=== PATIENT | female | born 1960 | race Caucasian/White ===

== ENCOUNTER 2018-07-31 13:12 | Outpatient (CLI) | payer BC ==
--- NOTE | 2018-07-31 13:32 | MMO ---
Bilateral MAMMO Bilat Screen [facility]. CLINICAL HISTORY: Patient is 57 years old and is seen for screening. The patient has no family history of breast cancer. The patient has no personal history of cancer. VIEWS: The views performed were: bilateral craniocaudal with tomosynthesis and bilateral mediolateral oblique with tomosynthesis. MAMMOGRAM FINDINGS: There are scattered fibroglandular densities. There are no suspicious masses, suspicious calcifications, or new areas of architectural distortion. IMPRESSION: THERE IS NO MAMMOGRAPHIC EVIDENCE OF MALIGNANCY. A ROUTINE FOLLOW-UP MAMMOGRAM IN 1 YEAR IS RECOMMENDED. THE RESULTS OF THIS EXAM WERE SENT TO THE PATIENT. ACR BI-RADS Category 1 - Negative MAMMOGRAPHY NOTE: 1. A negative mammogram report should not delay a biopsy if a dominant of clinically suspicious mass is present. 2. Approximately 10% to 15% of breast cancers are not detected by mammography. 3. Adenosis and dense breasts may obscure an underlying neoplasm.
== END 2018-07-31 13:13 | disposition home or self-care (01) ==
LOC: BICMAMMO 13:12
PROVIDERS: ATTEND Family Medicine
DX: Z12.31 Encounter for screening mammogram for malignant neoplasm of breast (principal)
CPT/HCPCS: 77063; 77067

== ENCOUNTER 2019-02-03 11:37 | Outpatient (CLI) | payer BC ==
--- NOTE | 2019-02-03 12:58 | RAD ---
EXAM: Two views chest PROVIDED CLINICAL HISTORY: Dyspnea for 3 months. COMPARISON: None FINDINGS: Cardiac silhouette and pulmonary vasculature are within normal limits. The lungs are clear. Mild deg enerative changes are seen in the spine. IMPRESSION: No acute cardiopulmonary process.
== END 2019-02-03 11:38 | disposition home or self-care (01) ==
LOC: BICRAD 11:37
PROVIDERS: ATTEND Internal Medicine Cardiovascular Disease
DX: R06.02 Shortness of breath (principal); R06.00 Dyspnea, unspecified
CPT/HCPCS: 71046

== ENCOUNTER 2019-09-15 10:14 | Outpatient (CLI) | payer BC ==
--- NOTE | 2019-09-15 10:56 | MMO ---
Bilateral MAMMO Bilat Screen [facility]. CLINICAL HISTORY: Patient is 58 years old and is seen for screening. The patient has no family history of breast cancer. The patient has no personal history of cancer. VIEWS: The views performed were: bilateral craniocaudal with tomosynthesis and bilateral mediolateral oblique with tomosynthesis. FILMS COMPARED: The present examination has been compared to a prior imaging study performed at [facility] on 07/31/2018. This study has been interpreted with the assistance of computer-aided detection. MAMMOGRAM FINDINGS: There are scattered fibroglandular densities. There are no suspicious masses, suspicious calcifications, or new areas of architectural distortion. IMPRESSION: THERE IS NO MAMMOGRAPHIC EVIDENCE OF MALIGNANCY. A ROUTINE FOLLOW-UP MAMMOGRAM IN 1 YEAR IS RECOMMENDED. THE RESULTS OF THIS EXAM WERE SENT TO THE PATIENT. ACR BI-RADS Category 1 - Negative MAMMOGRAPHY NOTE: 1. A negative mammogram report should not delay a biopsy if a dominant of clinically suspicious mass is present. 2. Approximately 10% to 15% of breast cancers are not detected by mammography. 3. Adenosis and dense breasts may obscure an underlying neoplasm. Reported by: ROD HITCHCOCK MD Electonically Signed: [id number]
== END 2019-09-15 10:15 | disposition home or self-care (01) ==
LOC: BICMAMMO 10:14
PROVIDERS: ATTEND Family Medicine
DX: Z12.31 Encounter for screening mammogram for malignant neoplasm of breast (principal)
CPT/HCPCS: 77063; 77067

== ENCOUNTER 2020-05-27 08:26 | Outpatient (CLI) | payer BC ==
[2020-05-27] MEDS ORDERED: Iopamidol 370 76% 100 ML VIAL ONE (14:18)
[2020-05-27] MEDS ORDERED: Iopamidol 370 76% 50 ML VIAL FS ONE (14:18)
== END 2020-05-27 08:27 | disposition home or self-care (01) ==
LOC: CT 08:26
PROVIDERS: ATTEND Family Medicine
DX: R59.0 Localized enlarged lymph nodes (principal); K31.89 Other diseases of stomach and duodenum; R16.0 Hepatomegaly, not elsewhere classified
CPT/HCPCS: 71260; 74177; 82565; Q9967

== ENCOUNTER 2020-06-07 14:42 | Inpatient (IN) | payer BC ==
[2020-06-07] MEDS ORDERED: HYDROcodone/Acetaminophen 5/325 mg Tablet PO PRN (16:50)
[2020-06-07 17:55] VITALS: BMI 34.9
[2020-06-07] MEDS ORDERED: Morphine 2 MG/ML VIAL SLOW IVP PRN (18:35)
[2020-06-07] MEDS ORDERED: Dextrose 5% in Water 1,000 ML IV PRN (18:36)
[2020-06-07] MEDS ORDERED: HumaLOG 300 UNITS/3 ML VIAL SC PRN (18:36)
[2020-06-07] MEDS ORDERED: Dextrose 50% Abboject 50 ML SYRINGE SLOW IVP PRN (18:36)
[2020-06-07 18:37] LABS: HIV (1/2) Antibody/Antigen Non-Reactive (NonReactive); HIV 1/2 INDEX 0.07 S/CO (<1.00); Hep C IgG Ab Non-Reactive (NonReactive); Hep C Index 0.06 S/CO (0-0.79)
[2020-06-07] MEDS: Gabapentin 300 MG CAP PO SCH (20:57)
[2020-06-07] MEDS ORDERED: Allopurinol 300 MG TAB PO SCH (21:00)
[2020-06-07] MEDS: Ondansetron PF 4 MG/2 ML Vial IVP PRN (21:02)
[2020-06-07] MEDS: Allopurinol 300 MG TAB PO SCH (21:19)
[2020-06-08] MEDS: HYDROcodone/Acetaminophen 5/325 mg Tablet PO PRN ×2 (00:05→22:00)
[2020-06-08 05:53] LABS: SARS-CoV-2 PCR by NAA Not Detected (NotDetected)
[2020-06-08] MEDS: Ondansetron PF 4 MG/2 ML Vial IVP PRN ×2 (05:55→13:31)
[2020-06-08 07:41] LABS: #Basophils 0.1 thou/uL (0.0-0.2); #Eosinphils 0.2 thou/uL (0.0-0.7); #Lymphocytes 0.4 thou/uL (1.20-3.40); #Monocytes 0.6 thou/uL (0.11-0.59); #Neutrophils 5.7 thou/uL (1.40-6.50); %Basophils 1.8 % (0.0-1.0); %Eosinophils 2.7 % (0.0-10.0); %Lymphocytes 5.8 % (21.0-51.0); %Neutrophils 81.8 % (42.0-75.0); Hemoglobin 11.1 g/dL (12.0-16.0); Mean Corpuscular HGB CONC 31.6 g/dL (32.0-36.0); Mean Corpuscular Hemoglobin 29.6 pg (27.0-31.0); Mean Corpuscular Volume 93.7 fL (78.0-98.0); Mean Platelet Volume 7.5 fL (7.4-10.4); Platelet Count 279 thou/uL (130-400); RBC Distribution Width 13.2 % (11.5-14.5); Red Blood Cell (RBC) Count 3.76 mill/uL (4.20-5.40)
[2020-06-08] MEDS ORDERED: Sodium Bicarbonate 2.5 MEQ/5 ML VIAL ONE (07:41)
[2020-06-08] MEDS ORDERED: Fentanyl 100 MCG/2 ML VIAL ONE ×2 (07:42→18:31)
[2020-06-08] MEDS ORDERED: Midazolam HCl 2 mg/2 ml Vial ONE (07:42)
[2020-06-08 07:48] LABS: ALT (SGPT) 12 U/L (8-55); AST (SGOT) 20 U/L (5-34); Albumin 3.7 g/dL (3.4-4.8); Alkaline Phosphatase 123 U/L (40-110); Anion Gap 20 mmol/L (10-20); BUN (Urea Nitrogen) 17 mg/dL (9.8-20.1); Bilirubin, Total 0.7 mg/dL (0.2-1.2); Calc. Creatinine Clearance 88 mL/min (70-130); Calcium 9.4 mg/dL (7.8-10.44); Carbon Dioxide 21 mmol/L (23-31); Chloride 99 mmol/L (98-107); Globulin 3.4 g/dL (2.4-3.5); Glucose 123 mg/dL (80-115); Potassium 3.7 mmol/L (3.5-5.1); Protein, Total 7.1 g/dL (5.8-8.1); Sodium 136 mmol/L (136-145); Uric Acid 6.7 mg/dL (2.6-6.0)
[2020-06-08] MEDS ORDERED: CEFAZOLIN 2 GM in Premix Bag 1 BAG IVPB SCH (08:00)
[2020-06-08] MEDS ORDERED: Prevnar 13-Val Conj/PF 0.5 ML SYRINGE IM ONE (09:00)
[2020-06-08] MEDS: Sodium Chloride 0.9% 1,000 ML IV SCH ×2 (09:35→20:00)
[2020-06-08] MEDS: Allopurinol 300 MG TAB PO SCH ×2 (09:35→21:14)
[2020-06-08] MEDS: Gabapentin 300 MG CAP PO SCH ×2 (09:36→21:14)
[2020-06-08] MEDS: Enoxaparin Sodium 40 MG/0.4 ML SYRINGE SC SCH (09:36)
[2020-06-08 13:11] LABS: CSF, Glucose 66 mg/dl (40-70); CSF, Protein 24 mg/dL (15-40)
[2020-06-08 13:15] LABS: CSF Source CSF; CSF WBC/NonHematics Count-Man 0 /cu.mm (0-5)
[2020-06-08 13:16] LABS: CSF RBC Count - Manual 37 /cu.mm (None Seen); Clarity Clear (Clear); Tube # 3
[2020-06-08] MEDS ORDERED: Promethazine HCl 25 MG/ML VIAL IM/IV PRN (13:37)
[2020-06-08] MEDS ORDERED: Ketorolac Tromethamine 30 MG/ML VIAL IVP SCH (14:00)
[2020-06-08] MEDS: Lidocaine 5% Patch TD SCH (14:14)
[2020-06-08] MEDS ORDERED: Bupivacaine PF 0.5% 30 ML VIAL ONE (18:04)
[2020-06-08] MEDS ORDERED: Lidocaine 2% PF 5 ML VIAL ONE (18:04)
[2020-06-08] MEDS ORDERED: Lidocaine 2% w/Epinephrine 1:200K 20 ML VIAL ONE (18:04)
[2020-06-08] MEDS ORDERED: Ondansetron PF 4 MG/2 ML Vial ONE (18:42)
[2020-06-08] MEDS: Promethazine HCl 25 MG in Sodium Chloride 0.9% 50 ML IVPB PRN (21:01)
[2020-06-08] MEDS ORDERED: traMADol HCl 50 MG TAB PO SCH (21:30)
[2020-06-09] MEDS: Transdermal Patch Removal TOP SCH (05:02)
[2020-06-09 05:27] LABS: #Eosinphils 0.2 thou/uL (0.0-0.7); #Lymphocytes 0.6 thou/uL (1.20-3.40); #Monocytes 0.5 thou/uL (0.11-0.59); #Neutrophils 4.3 thou/uL (1.40-6.50); %Eosinophils 3.7 % (0.0-10.0); %Lymphocytes 10.1 % (21.0-51.0); %Monocytes 9.6 % (0.0-10.0); %Neutrophils 76.6 % (42.0-75.0); Hemoglobin 10.3 g/dL (12.0-16.0); Mean Corpuscular HGB CONC 32.1 g/dL (32.0-36.0); Mean Corpuscular Hemoglobin 30.3 pg (27.0-31.0); Mean Corpuscular Volume 94.2 fL (78.0-98.0); Mean Platelet Volume 7.3 fL (7.4-10.4); Platelet Count 254 thou/uL (130-400); RBC Distribution Width 13.1 % (11.5-14.5); Red Blood Cell (RBC) Count 3.42 mill/uL (4.20-5.40); White Blood Cell (WBC) Count 5.6 thou/uL (4.8-10.8)
[2020-06-09] MEDS: Promethazine HCl 25 MG in Sodium Chloride 0.9% 50 ML IVPB PRN ×2 (05:42→21:05)
[2020-06-09] MEDS: HYDROcodone/Acetaminophen 5/325 mg Tablet PO PRN ×4 (06:03→21:24)
[2020-06-09 06:09] LABS: ALT (SGPT) Less than 7 U/L (8-55); AST (SGOT) 13 U/L (5-34); Albumin 2.7 g/dL (3.4-4.8); Alkaline Phosphatase 84 U/L (40-110); Anion Gap 11 mmol/L (10-20); BUN (Urea Nitrogen) 16 mg/dL (9.8-20.1); Bilirubin, Total 0.5 mg/dL (0.2-1.2); Calc. Creatinine Clearance 122 mL/min (70-130); Calcium 6.8 mg/dL (7.8-10.44); Carbon Dioxide 22 mmol/L (23-31); Chloride 113 mmol/L (98-107); Globulin 2.2 g/dL (2.4-3.5); Glucose 69 mg/dL (80-115); Potassium 3.3 mmol/L (3.5-5.1); Protein, Total 4.9 g/dL (5.8-8.1); Sodium 143 mmol/L (136-145); Uric Acid 5.2 mg/dL (2.6-6.0)
[2020-06-09] MEDS: Allopurinol 300 MG TAB PO SCH ×2 (08:52→21:24)
[2020-06-09] MEDS: Gabapentin 300 MG CAP PO SCH ×2 (08:53→21:24)
[2020-06-09] MEDS: Enoxaparin Sodium 40 MG/0.4 ML SYRINGE SC SCH (08:53)
[2020-06-09] MEDS: Acetaminophen 325 MG TAB PO PRN (09:07)
[2020-06-09] MEDS: Ondansetron PF 4 MG/2 ML Vial IVP PRN (09:07)
[2020-06-09] MEDS: Sodium Chloride 0.9% 1,000 ML IV SCH (10:26)
[2020-06-09] MEDS: Lidocaine 5% Patch TD SCH ×2 (14:22→14:49)
[2020-06-09] MEDS: Ketorolac Tromethamine 30 MG/ML VIAL IVP SCH (18:19)
[2020-06-10] MEDS: Sodium Chloride 0.9% 1,000 ML IV SCH ×2 (00:20→14:42)
[2020-06-10] MEDS: Ketorolac Tromethamine 30 MG/ML VIAL IVP SCH ×4 (00:21→18:22)
[2020-06-10] MEDS: Transdermal Patch Removal TOP SCH (02:59)
[2020-06-10] MEDS: Promethazine HCl 25 MG in Sodium Chloride 0.9% 50 ML IVPB PRN ×2 (03:54→13:17)
[2020-06-10] MEDS: HYDROcodone/Acetaminophen 5/325 mg Tablet PO PRN ×4 (04:34→21:35)
[2020-06-10 06:42] LABS: #Eosinphils 0.2 thou/uL (0.0-0.7); #Lymphocytes 0.4 thou/uL (1.20-3.40); #Monocytes 0.4 thou/uL (0.11-0.59); #Neutrophils 4.2 thou/uL (1.40-6.50); %Basophils 0.1 % (0.0-1.0); %Eosinophils 3.4 % (0.0-10.0); %Lymphocytes 8.4 % (21.0-51.0); %Monocytes 7.9 % (0.0-10.0); %Neutrophils 80.2 % (42.0-75.0); Hemoglobin 10.1 g/dL (12.0-16.0); Mean Corpuscular HGB CONC 32.2 g/dL (32.0-36.0); Mean Corpuscular Hemoglobin 30.2 pg (27.0-31.0); Mean Corpuscular Volume 93.8 fL (78.0-98.0); Mean Platelet Volume 7.3 fL (7.4-10.4); Platelet Count 233 thou/uL (130-400); RBC Distribution Width 13.1 % (11.5-14.5); Red Blood Cell (RBC) Count 3.33 mill/uL (4.20-5.40); White Blood Cell (WBC) Count 5.2 thou/uL (4.8-10.8)
[2020-06-10 07:03] LABS: ALT (SGPT) 7 U/L (8-55); AST (SGOT) 21 U/L (5-34); Albumin 3.1 g/dL (3.4-4.8); Alkaline Phosphatase 99 U/L (40-110); Anion Gap 18 mmol/L (10-20); BUN (Urea Nitrogen) 20 mg/dL (9.8-20.1); Bilirubin, Total 0.6 mg/dL (0.2-1.2); Calc. Creatinine Clearance 102 mL/min (70-130); Calcium 8.4 mg/dL (7.8-10.44); Carbon Dioxide 18 mmol/L (23-31); Chloride 104 mmol/L (98-107); Globulin 2.7 g/dL (2.4-3.5); Glucose 76 mg/dL (80-115); Potassium 3.9 mmol/L (3.5-5.1); Protein, Total 5.8 g/dL (5.8-8.1); Sodium 136 mmol/L (136-145); Uric Acid 5.6 mg/dL (2.6-6.0)
[2020-06-10] MEDS: Allopurinol 300 MG TAB PO SCH ×2 (08:29→20:16)
[2020-06-10] MEDS: Gabapentin 300 MG CAP PO SCH ×2 (08:29→20:15)
[2020-06-10] MEDS: Enoxaparin Sodium 40 MG/0.4 ML SYRINGE SC SCH (08:30)
[2020-06-10] MEDS: Ondansetron PF 4 MG/2 ML Vial IVP PRN ×2 (08:35→18:35)
[2020-06-10] MEDS: Acetaminophen 325 MG TAB PO PRN (10:33)
[2020-06-10 11:30] LABS: Iron 20 ug/dL (50-170); Iron Binding Capacity, Total 241 mcg/dL (265-497)
[2020-06-10 11:56] LABS: Ferritin 132.02 ng/mL (10-291)
[2020-06-10] MEDS: Lidocaine 5% Patch TD SCH (14:42)
[2020-06-10] MEDS ORDERED: Calcium Carbonate 500 MG ChewTAB PO PRN (16:07)
[2020-06-10] MEDS: Senokot S 8.6-50 MG TAB PO PRN (16:54)
[2020-06-11] MEDS: Ketorolac Tromethamine 30 MG/ML VIAL IVP SCH ×4 (00:03→18:37)
[2020-06-11] MEDS: Transdermal Patch Removal TOP SCH (03:20)
[2020-06-11 06:37] LABS: #Eosinphils 0.2 thou/uL (0.0-0.7); #Lymphocytes 0.3 thou/uL (1.20-3.40); #Monocytes 0.4 thou/uL (0.11-0.59); #Neutrophils 3.6 thou/uL (1.40-6.50); %Basophils 0.1 % (0.0-1.0); %Lymphocytes 7.1 % (21.0-51.0); %Monocytes 9.1 % (0.0-10.0); %Neutrophils 78.7 % (42.0-75.0); Hemoglobin 10.6 g/dL (12.0-16.0); Mean Corpuscular HGB CONC 32.6 g/dL (32.0-36.0); Mean Corpuscular Hemoglobin 30.8 pg (27.0-31.0); Mean Corpuscular Volume 94.4 fL (78.0-98.0); Mean Platelet Volume 7.3 fL (7.4-10.4); Platelet Count 227 thou/uL (130-400); RBC Distribution Width 13.3 % (11.5-14.5); Red Blood Cell (RBC) Count 3.43 mill/uL (4.20-5.40); White Blood Cell (WBC) Count 4.5 thou/uL (4.8-10.8)
[2020-06-11 06:59] LABS: ALT (SGPT) 10 U/L (8-55); AST (SGOT) 26 U/L (5-34); Albumin 3.1 g/dL (3.4-4.8); Alkaline Phosphatase 105 U/L (40-110); Anion Gap 17 mmol/L (10-20); BUN (Urea Nitrogen) 18 mg/dL (9.8-20.1); Bilirubin, Total 0.6 mg/dL (0.2-1.2); Calc. Creatinine Clearance 98 mL/min (70-130); Calcium 8.4 mg/dL (7.8-10.44); Carbon Dioxide 16 mmol/L (23-31); Chloride 105 mmol/L (98-107); Globulin 2.8 g/dL (2.4-3.5); Glucose 84 mg/dL (80-115); Potassium 3.9 mmol/L (3.5-5.1); Protein, Total 5.9 g/dL (5.8-8.1); Sodium 134 mmol/L (136-145); Uric Acid 4.7 mg/dL (2.6-6.0)
[2020-06-11] MEDS: Gabapentin 300 MG CAP PO SCH ×2 (08:47→20:46)
[2020-06-11] MEDS: Enoxaparin Sodium 40 MG/0.4 ML SYRINGE SC SCH (08:48)
[2020-06-11] MEDS: Allopurinol 300 MG TAB PO SCH ×2 (08:48→20:46)
[2020-06-11] MEDS: Ondansetron PF 4 MG/2 ML Vial IVP PRN (08:49)
[2020-06-11] MEDS ORDERED: Iron, Sodium Ferric Gluconate 250 MG in Sodium Chloride 0.9% 100 ML IVPB SCH (09:30)
[2020-06-11] MEDS: HYDROcodone/Acetaminophen 5/325 mg Tablet PO PRN (10:28)
[2020-06-11] MEDS: Folic Acid 1 MG TAB PO SCH (10:28)
[2020-06-11] MEDS ORDERED: Acetaminophen 500 MG TAB PO PRN (12:19)
[2020-06-11] MEDS ORDERED: diphenhydrAMINE 50 MG in Sodium Chloride 0.9% 50 ML IVPB PRN (12:20)
[2020-06-11] MEDS ORDERED: SODIUM CHLORIDE 0.9% IVPB SCH ×2 (12:30→13:00)
[2020-06-11] MEDS ORDERED: RITUXIMAB ABBS IVPB SCH (12:30)
[2020-06-11] MEDS ORDERED: Dexamethasone Sod Phosphate 20 MG in Sodium Chloride 0.9% 50 ML IVPB SCH (12:30)
[2020-06-11] MEDS ORDERED: PALONOSETRON HCL 0.05 MG/ML 5 ML VIAL IVP SCH (12:30)
[2020-06-11] MEDS ORDERED: Cyclophosphamide 1 GM, Cyclophosphamide 500 MG in Sodium Chloride 0.9% 250 ML 250 ML IVPB SCH (12:45)
[2020-06-11] MEDS ORDERED: DOXORUBICIN IVPB SCH (13:00)
[2020-06-11] MEDS ORDERED: PEGFILGRASTIM-JMDB 6 MG/0.6 ML SYRINGE SQ SCH (13:00)
[2020-06-11] MEDS ORDERED: vinCRIStine Sulfate 2 MG in Sodium Chloride 0.9% 50 ML IVPB SCH (13:00)
[2020-06-11] MEDS ORDERED: predniSONE 50 MG TAB PO SCH (13:00)
[2020-06-11] MEDS: Lidocaine 5% Patch TD SCH (18:30)
[2020-06-11] MEDS: Senokot S 8.6-50 MG TAB PO PRN (20:49)
[2020-06-12] MEDS: Ketorolac Tromethamine 30 MG/ML VIAL IVP SCH ×4 (00:02→17:08)
[2020-06-12] MEDS: Transdermal Patch Removal TOP SCH (05:22)
[2020-06-12 05:56] LABS: #Basophils 0.1 thou/uL (0.0-0.2); #Lymphocytes 0.1 thou/uL (1.20-3.40); #Monocytes 0.2 thou/uL (0.11-0.59); #Neutrophils 8.5 thou/uL (1.40-6.50); %Basophils 0.8 % (0.0-1.0); %Eosinophils 0.2 % (0.0-10.0); %Lymphocytes 1.6 % (21.0-51.0); %Neutrophils 95.4 % (42.0-75.0); Mean Corpuscular HGB CONC 32.1 g/dL (32.0-36.0); Mean Corpuscular Hemoglobin 30.2 pg (27.0-31.0); Mean Corpuscular Volume 94.2 fL (78.0-98.0); Mean Platelet Volume 7.4 fL (7.4-10.4); Platelet Count 259 thou/uL (130-400); RBC Distribution Width 13.3 % (11.5-14.5); Red Blood Cell (RBC) Count 3.29 mill/uL (4.20-5.40); White Blood Cell (WBC) Count 8.9 thou/uL (4.8-10.8)
[2020-06-12 06:16] LABS: ALT (SGPT) 15 U/L (8-55); AST (SGOT) 40 U/L (5-34); Albumin 2.8 g/dL (3.4-4.8); Alkaline Phosphatase 96 U/L (40-110); Anion Gap 16 mmol/L (10-20); BUN (Urea Nitrogen) 21 mg/dL (9.8-20.1); Bilirubin, Total 0.4 mg/dL (0.2-1.2); Calc. Creatinine Clearance 107 mL/min (70-130); Calcium 7.8 mg/dL (7.8-10.44); Carbon Dioxide 17 mmol/L (23-31); Chloride 106 mmol/L (98-107); Globulin 2.7 g/dL (2.4-3.5); Glucose 135 mg/dL (80-115); Potassium 4.3 mmol/L (3.5-5.1); Protein, Total 5.5 g/dL (5.8-8.1); Sodium 135 mmol/L (136-145); Uric Acid 4.2 mg/dL (2.6-6.0)
[2020-06-12] MEDS: Enoxaparin Sodium 40 MG/0.4 ML SYRINGE SC SCH (09:07)
[2020-06-12] MEDS: Gabapentin 300 MG CAP PO SCH ×2 (09:08→20:44)
[2020-06-12] MEDS: Folic Acid 1 MG TAB PO SCH (09:09)
[2020-06-12] MEDS: Allopurinol 300 MG TAB PO SCH ×2 (09:09→20:44)
[2020-06-12] MEDS: Promethazine HCl 25 MG in Sodium Chloride 0.9% 50 ML IVPB PRN (10:46)
[2020-06-12] MEDS: HYDROcodone/Acetaminophen 5/325 mg Tablet PO PRN ×2 (12:07→18:14)
[2020-06-12] MEDS ORDERED: predniSONE 50 MG TAB PO SCH (13:00)
[2020-06-12] MEDS: Lidocaine 5% Patch TD SCH (14:07)
[2020-06-12] MEDS ORDERED: metFORMIN 500 MG TAB PO SCH (17:00)
[2020-06-12] MEDS: Ondansetron PF 4 MG/2 ML Vial IVP PRN (20:44)
[2020-06-12 20:48] VITALS: BP 147/70; TEMP 97
[2020-06-13] MEDS ORDERED: Lisinopril/Hydrochlorothiazide 20/25 mg Tablet PO SCH (09:00)
== END 2020-06-13 00:05 | disposition home or self-care (01) | DRG 824 ==
LOC: ONC 16:25
PROVIDERS: ADMIT Internal Medicine; ATTEND Family Medicine
PROC: 0JH60WZ Insertion of Totally Implantable Vascular Access Device into Chest Subcutaneous Tissue and Fascia, Open Approach (ICD-10-PCS; 2020-06-08)
PROC: 07DR3ZX Extraction of Iliac Bone Marrow, Percutaneous Approach, Diagnostic (ICD-10-PCS; 2020-06-08)
PROC: 02HV33Z Insertion of Infusion Device into Superior Vena Cava, Percutaneous Approach (ICD-10-PCS; 2020-06-08)
PROC: B518ZZA Fluoroscopy of Superior Vena Cava, Guidance (ICD-10-PCS; 2020-06-08)
PROC: 009U3ZX Drainage of Spinal Canal, Percutaneous Approach, Diagnostic (ICD-10-PCS; 2020-06-09)
PROC: B01BZZZ Fluoroscopy of Spinal Cord (ICD-10-PCS; 2020-06-09)
PROC: 3E04305 Introduction of Other Antineoplastic into Central Vein, Percutaneous Approach (ICD-10-PCS; principal; 2020-06-11)
DX: C83.33 Diffuse large B-cell lymphoma, intra-abdominal lymph nodes (principal); E87.1 Hypo-osmolality and hyponatremia; E11.9 Type 2 diabetes mellitus without complications; I10 Essential (primary) hypertension; Z20.822 Contact with and (suspected) exposure to COVID-19; G89.29 Other chronic pain; M54.9 Dorsalgia, unspecified; F32.9 Major depressive disorder, single episode, unspecified; M19.90 Unspecified osteoarthritis, unspecified site; F17.210 Nicotine dependence, cigarettes, uncomplicated; E66.9 Obesity, unspecified; Z68.35 Body mass index [BMI] 35.0-35.9, adult; Z79.899 Other long term (current) drug therapy; Z79.84 Long term (current) use of oral hypoglycemic drugs; Z88.6 Allergy status to analgesic agent
CPT/HCPCS: 20225; 36415; 36416; 62270; 71045; 77002; 80053; 82607; 82728; 82746; 82945; 83540; 83550; 83615; 84157; 84550; 85025; 85097; 86803; 87389; 87635; 88112; 88184; 88237; 88305; 88311; 88313; 89051; 93306; C1788; J0690; J1100; J1200; J1453; J1642; J1650; J1815; J1885; J2001; J2250; J2270; J2405; J2469; J2550; J2916; J3010; J3490; J7030; J7050; J7512; J9000; J9070; J9370; Q5108; Q5115; S0020; U0003; U0005

== ENCOUNTER 2020-06-22 12:03 | Outpatient (CLI) | payer BC | END 2020-06-22 12:04 | disposition home or self-care (01) | LOC: PET 12:03 | PROVIDERS: ATTEND Internal Medicine Hematology & Oncology | DX: C83.33 Diffuse large B-cell lymphoma, intra-abdominal lymph nodes (principal); R59.0 Localized enlarged lymph nodes; K31.89 Other diseases of stomach and duodenum | CPT/HCPCS: 78815; A9552 ==

== ENCOUNTER 2020-08-10 09:27 | Outpatient (CLI) | payer BC | END 2020-08-10 09:28 | disposition home or self-care (01) | LOC: PET 09:27 | PROVIDERS: ATTEND Internal Medicine Hematology & Oncology | DX: C83.30 Diffuse large B-cell lymphoma, unspecified site (principal); K11.8 Other diseases of salivary glands; R59.0 Localized enlarged lymph nodes | CPT/HCPCS: 78815; A9552 ==

== ENCOUNTER 2020-08-11 10:46 | Inpatient (IN) | payer BC ==
[2020-08-11] MEDS ORDERED: diphenhydrAMINE 25 MG CAP PO PRN (10:47)
[2020-08-11] MEDS ORDERED: Acetaminophen 500 MG TAB PO PRN (10:47)
[2020-08-11 11:19] VITALS: BMI 32.3
[2020-08-11] MEDS ORDERED: Dextrose 5% in Water 1,000 ML IV PRN (14:09)
[2020-08-11] MEDS ORDERED: Calcium Carbonate 500 MG ChewTAB PO PRN (14:09)
[2020-08-11] MEDS ORDERED: Senokot S 8.6-50 MG TAB PO PRN (14:09)
[2020-08-11] MEDS ORDERED: HYDROcodone/Acetaminophen 5/325 mg Tablet PO PRN (14:09)
[2020-08-11] MEDS ORDERED: Ondansetron ODT 4 MG TAB PO PRN (14:09)
[2020-08-11] MEDS ORDERED: Insulin Regular 300 UNITS/3 ML VIAL SC PRN ×2 (14:09)
[2020-08-11] MEDS ORDERED: Dextrose 50% Abboject 50 ML SYRINGE SLOW IVP PRN (14:09)
[2020-08-11] MEDS ORDERED: RASBURICASE IVPB SCH ×2 (14:15→20:15)
[2020-08-11] MEDS ORDERED: Sodium Chloride 0.9% 1,000 ML IV SCH (14:15)
[2020-08-11] MEDS ORDERED: SODIUM CHLORIDE 0.9% IVPB SCH ×2 (14:15→20:15)
[2020-08-11] MEDS ORDERED: Sodium Bicarbonate Tab 325 MG TAB PO SCH (14:30)
[2020-08-11] MEDS ORDERED: Sodium Chloride 0.9% 2,000 ML IV SCH (14:34)
[2020-08-11] MEDS ORDERED: Activase 2 MG VIAL CATH SCH (15:30)
[2020-08-11] MEDS ORDERED: Sterile Water 10 ML VIAL IVP SCH (15:30)
[2020-08-11] MEDS: Sodium Chloride 0.9% 1,000 ML IV SCH (18:34)
[2020-08-11 19:17] LABS: ALT (SGPT) Less than 7 U/L (8-55); AST (SGOT) 9 U/L (5-34); Albumin 3.1 g/dL (3.4-4.8); Alkaline Phosphatase 102 U/L (40-110); Anion Gap 16 mmol/L (10-20); BUN (Urea Nitrogen) 43 mg/dL (9.8-20.1); Calc. Creatinine Clearance 18 mL/min (70-130); Calcium 7.1 mg/dL (7.8-10.44); Carbon Dioxide 18 mmol/L (23-31); Chloride 103 mmol/L (98-107); Globulin 2.1 g/dL (2.4-3.5); Glucose 109 mg/dL (80-115); Potassium 3.1 mmol/L (3.5-5.1); Protein, Total 5.2 g/dL (5.8-8.1); Sodium 134 mmol/L (136-145); Uric Acid 13.8 mg/dL (2.6-6.0)
[2020-08-11] MEDS ORDERED: Promethazine HCl 12.5 MG in Sodium Chloride 0.9% 50 ML IVPB SCH (19:45)
[2020-08-11] MEDS ORDERED: Potassium Chloride 20 MEQ TAB PO SCH (20:15)
[2020-08-11] MEDS: Sodium Bicarbonate Tab 325 MG TAB PO SCH (20:29)
[2020-08-11] MEDS: Folic Acid 1 MG TAB PO SCH (20:29)
[2020-08-11] MEDS: Gabapentin 100 MG CAP PO SCH (20:29)
[2020-08-11 21:40] LABS: SARS-CoV-2 PCR by NAA Not Detected (NotDetected)
[2020-08-12] MEDS: Ondansetron PF 4 MG/2 ML Vial IVP PRN (00:09)
[2020-08-12 05:05] LABS: Hemoglobin 7.5 g/dL (12.0-16.0); Mean Corpuscular Volume 91.6 fL (78.0-98.0); Mean Platelet Volume 7.9 fL (7.4-10.4); Platelet Count 160 thou/uL (130-400); RBC Distribution Width 20.1 % (11.5-14.5); Red Blood Cell (RBC) Count 2.34 mill/uL (4.20-5.40); White Blood Cell (WBC) Count 3.1 thou/uL (4.8-10.8)
[2020-08-12 05:22] LABS: Phosphorus 4.9 mg/dL (2.3-4.7)
[2020-08-12 05:25] LABS: AST (SGOT) 9 U/L (5-34); Albumin 2.8 g/dL (3.4-4.8); Alkaline Phosphatase 86 U/L (40-110); Anion Gap 14 mmol/L (10-20); BUN (Urea Nitrogen) 41 mg/dL (9.8-20.1); Bilirubin, Total 1.4 mg/dL (0.2-1.2); Calc. Creatinine Clearance 20 mL/min (70-130); Calcium 6.6 mg/dL (7.8-10.44); Carbon Dioxide 20 mmol/L (23-31); Chloride 108 mmol/L (98-107); Globulin 1.8 g/dL (2.4-3.5); Glucose 104 mg/dL (80-115); Magnesium 1.4 mg/dL (1.6-2.6); Potassium 3.5 mmol/L (3.5-5.1); Protein, Total 4.6 g/dL (5.8-8.1); Sodium 138 mmol/L (136-145); Uric Acid 12.7 mg/dL (2.6-6.0)
[2020-08-12 05:41] LABS: ALT (SGPT) Less than 7 U/L (8-55)
[2020-08-12 08:12] LABS: Band 15 % (5-11); Lymphocytes 10 % (21-51); MDiff Complete? YES; Monocytes 20 % (0-10); Neutrophil 55 % (42-75); Platelet Morphology Comment Appears Adequate; Polychromasia SLIGHT = 2-3 cells (100X) (0-2/hpf)
[2020-08-12] MEDS: Sodium Bicarbonate Tab 325 MG TAB PO SCH ×2 (08:44→20:48)
[2020-08-12] MEDS: Gabapentin 100 MG CAP PO SCH ×2 (08:44→20:48)
[2020-08-12] MEDS: Calcium Carbonate 600 MG + Vit D TAB PO SCH ×2 (08:44→16:02)
[2020-08-12] MEDS: Folic Acid 1 MG TAB PO SCH ×2 (08:44→20:48)
[2020-08-12] MEDS: Sodium Chloride 0.9% 1,000 ML IV SCH ×2 (08:49→20:53)
[2020-08-12 19:16] LABS: Albumin 3.2 g/dL (3.4-4.8); Anion Gap 14 mmol/L (10-20); BUN (Urea Nitrogen) 34 mg/dL (9.8-20.1); Calc. Creatinine Clearance 25 mL/min (70-130); Calcium 7.1 mg/dL (7.8-10.44); Carbon Dioxide 22 mmol/L (23-31); Chloride 106 mmol/L (98-107); Glucose 93 mg/dL (80-115); Phosphorus 4.2 mg/dL (2.3-4.7); Potassium 3.5 mmol/L (3.5-5.1); Sodium 138 mmol/L (136-145); Uric Acid Less than 2.0 mg/dL (2.6-6.0)
[2020-08-12] MEDS: Heparin 5,000 UNITS/ML VIAL SC SCH (20:49)
[2020-08-13] MEDS: Acetaminophen 325 MG TAB PO PRN (04:30)
[2020-08-13 06:35] LABS: Albumin 2.8 g/dL (3.4-4.8); Anion Gap 11 mmol/L (10-20); BUN (Urea Nitrogen) 27 mg/dL (9.8-20.1); BUN/Creatinine Ratio 9.57; Calc. Creatinine Clearance 32 mL/min (70-130); Calcium 6.7 mg/dL (7.8-10.44); Carbon Dioxide 23 mmol/L (23-31); Chloride 107 mmol/L (98-107); Glucose 97 mg/dL (80-115); Magnesium 1.1 mg/dL (1.6-2.6); Phosphorus 4.1 mg/dL (2.3-4.7); Potassium 3.1 mmol/L (3.5-5.1); Sodium 138 mmol/L (136-145); Uric Acid Less than 2.0 mg/dL (2.6-6.0)
[2020-08-13 06:37] LABS: Band 10 % (5-11); Hypochromia SLIGHT = 6-15 cells (100X) (0-5/hpf); MDiff Complete? YES; Mean Corpuscular HGB CONC 32.8 g/dL (32.0-36.0); Mean Corpuscular Hemoglobin 30.4 pg (27.0-31.0); Mean Corpuscular Volume 92.6 fL (78.0-98.0); Mean Platelet Volume 7.6 fL (7.4-10.4); Monocytes 4 % (0-10); Neutrophil 86 % (42-75); Platelet Count 155 thou/uL (130-400); Platelet Morphology Comment Appears Adequate; RBC Distribution Width 19.9 % (11.5-14.5); Red Blood Cell (RBC) Count 2.29 mill/uL (4.20-5.40); White Blood Cell (WBC) Count 2.4 thou/uL (4.8-10.8)
[2020-08-13] MEDS ORDERED: Potassium Chloride 20 MEQ TAB PO SCH (08:15)
[2020-08-13] MEDS ORDERED: Magnesium 2 GM/50 ML 2 GM in Premix Bag 1 BAG IVPB SCH (08:15)
[2020-08-13] MEDS: Sodium Chloride 0.9% 1,000 ML IV SCH ×2 (09:02→17:25)
[2020-08-13] MEDS: Gabapentin 100 MG CAP PO SCH ×2 (09:58→20:52)
[2020-08-13] MEDS: Folic Acid 1 MG TAB PO SCH ×2 (09:59→20:52)
[2020-08-13] MEDS: Sodium Bicarbonate Tab 325 MG TAB PO SCH ×2 (09:59→20:53)
[2020-08-13] MEDS: Calcium Carbonate 600 MG + Vit D TAB PO SCH ×2 (09:59→18:00)
[2020-08-13] MEDS: Heparin 5,000 UNITS/ML VIAL SC SCH ×2 (10:00→20:52)
[2020-08-13 20:27] LABS: Albumin 3.2 g/dL (3.4-4.8); Anion Gap 13 mmol/L (10-20); BUN (Urea Nitrogen) 22 mg/dL (9.8-20.1); BUN/Creatinine Ratio 9.87; Calc. Creatinine Clearance 40 mL/min (70-130); Carbon Dioxide 21 mmol/L (23-31); Chloride 104 mmol/L (98-107); Glucose 143 mg/dL (80-115); Potassium 3.2 mmol/L (3.5-5.1); Sodium 135 mmol/L (136-145)
[2020-08-13] MEDS: Ondansetron PF 4 MG/2 ML Vial IVP PRN (20:52)
[2020-08-14] MEDS: Sodium Chloride 0.9% 1,000 ML IV SCH (01:44)
[2020-08-14 05:55] LABS: Hemoglobin 7.3 g/dL (12.0-16.0); Mean Corpuscular HGB CONC 33.2 g/dL (32.0-36.0); Mean Corpuscular Hemoglobin 31.3 pg (27.0-31.0); Mean Corpuscular Volume 94.2 fL (78.0-98.0); Mean Platelet Volume 7.4 fL (7.4-10.4); Platelet Count 156 thou/uL (130-400); Red Blood Cell (RBC) Count 2.32 mill/uL (4.20-5.40); White Blood Cell (WBC) Count 1.9 thou/uL (4.8-10.8)
[2020-08-14 06:20] LABS: Band 12 % (5-11); Eosinophils 2 % (0-10); Lymphocytes 9 % (21-51); MDiff Complete? YES; Monocytes 23 % (0-10); Neutrophil 52 % (42-75); Platelet Morphology Comment Appears Adequate
[2020-08-14 06:28] LABS: Albumin 2.8 g/dL (3.4-4.8); Anion Gap 13 mmol/L (10-20); BUN (Urea Nitrogen) 17 mg/dL (9.8-20.1); BUN/Creatinine Ratio 9.71; Calc. Creatinine Clearance 51 mL/min (70-130); Calcium 7.1 mg/dL (7.8-10.44); Carbon Dioxide 23 mmol/L (23-31); Chloride 109 mmol/L (98-107); Glucose 90 mg/dL (80-115); Magnesium 1.3 mg/dL (1.6-2.6); Phosphorus 3.3 mg/dL (2.3-4.7); Potassium 3.1 mmol/L (3.5-5.1); Sodium 142 mmol/L (136-145)
[2020-08-14] MEDS: Heparin 5,000 UNITS/ML VIAL SC SCH ×2 (08:19→20:26)
[2020-08-14] MEDS ORDERED: Promethazine HCl 12.5 MG in Sodium Chloride 0.9% 50 ML IVPB PRN (08:23)
[2020-08-14] MEDS ORDERED: Potassium Chloride 20 MEQ TAB PO SCH (08:45)
[2020-08-14] MEDS ORDERED: Magnesium 2 GM/50 ML 2 GM in Premix Bag 1 BAG IVPB SCH (08:45)
[2020-08-14] MEDS: Potassium Chloride 10 MEQ in Premix Bag 1 BAG IVPB SCH ×2 (09:49→11:25)
[2020-08-14] MEDS: Gabapentin 100 MG CAP PO SCH ×2 (11:26→20:25)
[2020-08-14] MEDS: Folic Acid 1 MG TAB PO SCH ×2 (11:26→20:25)
[2020-08-14] MEDS: Calcium Carbonate 600 MG + Vit D TAB PO SCH ×2 (11:27→18:24)
[2020-08-14 17:24] LABS: Anion Gap 12 mmol/L (10-20); BUN (Urea Nitrogen) 12 mg/dL (9.8-20.1); Calc. Creatinine Clearance 61 mL/min (70-130); Calcium 7.8 mg/dL (7.8-10.44); Carbon Dioxide 26 mmol/L (23-31); Chloride 106 mmol/L (98-107); Glucose 89 mg/dL (80-115); Magnesium 1.8 mg/dL (1.6-2.6); Potassium 3.6 mmol/L (3.5-5.1); Sodium 140 mmol/L (136-145)
[2020-08-14 17:34] LABS: Albumin 3.3 g/dL (3.4-4.8); Anion Gap 14 mmol/L (10-20); BUN (Urea Nitrogen) 12 mg/dL (9.8-20.1); BUN/Creatinine Ratio 8.22; Calc. Creatinine Clearance 62 mL/min (70-130); Calcium 7.9 mg/dL (7.8-10.44); Carbon Dioxide 23 mmol/L (23-31); Chloride 106 mmol/L (98-107); Glucose 89 mg/dL (80-115); Phosphorus 2.8 mg/dL (2.3-4.7); Potassium 3.6 mmol/L (3.5-5.1); Sodium 139 mmol/L (136-145)
[2020-08-15 06:23] LABS: Band 15 % (5-11); Eosinophils 1 % (0-10); Hemoglobin 8.2 g/dL (12.0-16.0); Lymphocytes 14 % (21-51); MDiff Complete? YES; Mean Corpuscular HGB CONC 33.8 g/dL (32.0-36.0); Mean Corpuscular Hemoglobin 31.6 pg (27.0-31.0); Mean Corpuscular Volume 93.5 fL (78.0-98.0); Mean Platelet Volume 7.5 fL (7.4-10.4); Monocytes 6 % (0-10); Neutrophil 64 % (42-75); Platelet Count 156 thou/uL (130-400); Platelet Morphology Comment Appears Adequate; RBC Distribution Width 18.9 % (11.5-14.5); White Blood Cell (WBC) Count 2.4 thou/uL (4.8-10.8)
[2020-08-15 06:28] LABS: Albumin 2.9 g/dL (3.4-4.8); Anion Gap 13 mmol/L (10-20); BUN (Urea Nitrogen) 10 mg/dL (9.8-20.1); Calc. Creatinine Clearance 74 mL/min (70-130); Calcium 7.5 mg/dL (7.8-10.44); Carbon Dioxide 24 mmol/L (23-31); Chloride 107 mmol/L (98-107); Glucose 95 mg/dL (80-115); Magnesium 1.3 mg/dL (1.6-2.6); Phosphorus 2.6 mg/dL (2.3-4.7); Potassium 3.4 mmol/L (3.5-5.1); Sodium 141 mmol/L (136-145)
[2020-08-15] MEDS ORDERED: Potassium Chloride 20 MEQ TAB PO SCH (07:15)
[2020-08-15] MEDS ORDERED: Magnesium 2 GM/50 ML 2 GM in Premix Bag 1 BAG IVPB SCH (07:15)
[2020-08-15] MEDS: Acetaminophen 325 MG TAB PO PRN (08:13)
[2020-08-15] MEDS: Gabapentin 100 MG CAP PO SCH (08:14)
[2020-08-15] MEDS: Calcium Carbonate 600 MG + Vit D TAB PO SCH (08:14)
[2020-08-15] MEDS: Folic Acid 1 MG TAB PO SCH (08:14)
[2020-08-15 08:41] VITALS: BP 126/61; TEMP 97.5
[2020-08-15] MEDS: Heparin 5,000 UNITS/ML VIAL SC SCH (10:53)
== END 2020-08-15 10:51 | disposition home or self-care (01) | DRG 683 ==
LOC: SDC/OP 10:46 → 2NO 11:02 → ONC 08-12 18:29
PROVIDERS: ADMIT Internal Medicine; ATTEND Internal Medicine
PROC: 30233N1 Transfusion of Nonautologous Red Blood Cells into Peripheral Vein, Percutaneous Approach (ICD-10-PCS; principal; 2020-08-11)
DX: E88.3 Tumor lysis syndrome (principal); E87.2 Acidosis; C83.30 Diffuse large B-cell lymphoma, unspecified site; N17.9 Acute kidney failure, unspecified; F41.9 Anxiety disorder, unspecified; M19.90 Unspecified osteoarthritis, unspecified site; E66.9 Obesity, unspecified; F17.210 Nicotine dependence, cigarettes, uncomplicated; F32.9 Major depressive disorder, single episode, unspecified; I12.9 Hypertensive chronic kidney disease with stage 1 through stage 4 chronic kidney disease, or unspecified chronic kidney disease; E79.0 Hyperuricemia without signs of inflammatory arthritis and tophaceous disease; N18.30 Chronic kidney disease, stage 3 unspecified; E11.22 Type 2 diabetes mellitus with diabetic chronic kidney disease; E53.8 Deficiency of other specified B group vitamins; D63.0 Anemia in neoplastic disease; R60.9 Edema, unspecified; Z20.822 Contact with and (suspected) exposure to COVID-19; E87.6 Hypokalemia; E83.51 Hypocalcemia; E83.42 Hypomagnesemia; E88.09 Other disorders of plasma-protein metabolism, not elsewhere classified; Z92.21 Personal history of antineoplastic chemotherapy; Z88.8 Allergy status to other drugs, medicaments and biological substances; Z98.890 Other specified postprocedural states; Z68.32 Body mass index [BMI] 32.0-32.9, adult; Z91.14 Patient's other noncompliance with medication regimen
CPT/HCPCS: 36415; 36416; 36430; 78815; 80053; 80069; 82248; 82607; 82728; 82746; 83540; 83550; 83615; 83735; 84100; 84550; 85025; 86850; 86900; 86901; A9552; J1642; J1644; J2405; J2550; J2783; J2997; J3475; J3480; P9016; Q0163; U0003; U0005

== ENCOUNTER 2020-09-02 11:06 | Day surgery (SDC) | payer BC ==
[2020-09-02] MEDS ORDERED: diphenhydrAMINE 25 MG CAP PO SCH (11:15)
[2020-09-02] MEDS ORDERED: Acetaminophen 500 MG TAB PO SCH (11:15)
[2020-09-02] MEDS ORDERED: Sodium Chloride 0.9% 20 ML ONE (11:22)
[2020-09-02 14:37] VITALS: BP 130/74; TEMP 98.4
== END 2020-09-02 14:37 | disposition home or self-care (01) ==
LOC: ONC/OP 11:06
PROVIDERS: ATTEND Internal Medicine Hematology & Oncology
PROC: 30233N1 Transfusion of Nonautologous Red Blood Cells into Peripheral Vein, Percutaneous Approach (ICD-10-PCS; principal; 2020-09-02)
DX: D64.9 Anemia, unspecified (principal); D69.6 Thrombocytopenia, unspecified; Z88.5 Allergy status to narcotic agent
CPT/HCPCS: 36415; 36430; 80053; 82248; 83615; 84100; 84550; 86850; 86900; 86901; J1642; P9016; Q0163

== ENCOUNTER 2020-09-07 10:44 | Outpatient (CLI) | payer BC ==
[~2020-09-07 10:44] MED LIST: Iopamidol 370 76% 100 ML VIAL ONE
== END 2020-09-07 10:45 | disposition home or self-care (01) ==
LOC: RAD 10:44
PROVIDERS: ATTEND Internal Medicine Hematology & Oncology
DX: Z45.2 Encounter for adjustment and management of vascular access device (principal); C83.33 Diffuse large B-cell lymphoma, intra-abdominal lymph nodes; R06.02 Shortness of breath
CPT/HCPCS: 71275; J1642; Q9967

== ENCOUNTER 2020-10-07 12:41 | Inpatient (IN) | payer BC ==
[2020-10-07 13:17] LABS: Hemoglobin 8.8 g/dL (12.0-16.0); Mean Corpuscular Hemoglobin 33.8 pg (27.0-31.0); Mean Corpuscular Volume 96.6 fL (78.0-98.0); Platelet Count 33 thou/uL (130-400); RBC Distribution Width 20.1 % (11.5-14.5); Red Blood Cell (RBC) Count 2.61 mill/uL (4.20-5.40); White Blood Cell (WBC) Count 0.2 thou/uL (4.8-10.8)
[2020-10-07 13:24] LABS: PTT 23.6 sec (22.9-36.1)
[2020-10-07 13:41] LABS: ALT (SGPT) 36 U/L (8-55); AST (SGOT) 27 U/L (5-34); Albumin 3.7 g/dL (3.4-4.8); Alkaline Phosphatase 111 U/L (40-110); Anion Gap 14 mmol/L (10-20); BUN (Urea Nitrogen) 15 mg/dL (9.8-20.1); Bilirubin, Total 7.9 mg/dL (0.2-1.2); Calc. Creatinine Clearance 0 mL/min (70-130); Calcium 9.1 mg/dL (7.8-10.44); Carbon Dioxide 24 mmol/L (23-31); Chloride 100 mmol/L (98-107); Globulin 2.3 g/dL (2.4-3.5); Glucose 142 mg/dL (80-115); Sodium 134 mmol/L (136-145)
[2020-10-07] MEDS ORDERED: Ondansetron ODT 4 MG TAB ONE (13:59)
[2020-10-07] MEDS ORDERED: Ondansetron PF 4 MG/2 ML Vial ONE (14:17)
[2020-10-07 16:14] LABS: Lactic Acid 3.7 mmol/L (0.5-2.2)
[2020-10-07] MEDS ORDERED: Ondansetron PF 4 MG/2 ML Vial IVP PRN (17:31)
[2020-10-07] MEDS ORDERED: HYDROcodone/Acetaminophen 5/325 mg Tablet PO PRN (17:31)
[2020-10-07] MEDS ORDERED: Ondansetron ODT 4 MG TAB PO PRN (17:31)
[2020-10-07] MEDS ORDERED: Acetaminophen 325 MG TAB PO PRN (17:31)
[2020-10-07] MEDS ORDERED: Calcium Carbonate 500 MG ChewTAB PO PRN (18:03)
[2020-10-07] MEDS ORDERED: Promethazine 25 MG TAB PO PRN (18:03)
[2020-10-07] MEDS ORDERED: Acetaminophen 500 MG TAB ONE (18:25)
[2020-10-07] MEDS ORDERED: Cefepime 2 GM VIAL ONE (18:25)
[2020-10-07] MEDS ORDERED: Cefepime 1 GM in Sodium Chloride 0.9% 100 ML IVPB SCH (21:00)
[2020-10-07] MEDS: Potassium Chloride 10 MEQ TAB PO SCH (21:50)
[2020-10-07] MEDS: Gabapentin 300 MG CAP PO SCH (21:50)
[2020-10-07] MEDS: Allopurinol 300 MG TAB PO SCH (21:50)
[2020-10-07] MEDS: Promethazine HCl 25 MG/ML VIAL IM PRN (22:02)
[2020-10-07] MEDS: Morphine 4 MG/ML VIAL SLOW IVP PRN (22:03)
[2020-10-07] MEDS: Sodium Chloride 0.9% 1,000 ML IV SCH (22:17)
[2020-10-08 00:27] LABS: Bacteria/HPF None Seen HPF (None Seen); Bilirubin Negative (Negative); Blood, Urine Negative (Negative); Clarity Clear (Clear); Glucose, Urine (Dipstick) Normal (Negative); Ketone, Urine Negative (Negative); Leukocyte Negative Leu/uL (Negative); Nitrite Negative (Negative); Protein, Urine (Dipstick) 10 mg/dL (Neg-Trace); RBC/HPF None Seen HPF (0-3); Squamous Epithelial 0-3 HPF (0-3); Urobilinogen Normal mg/dL (Less than 2); WBC/HPF 0-3 HPF (0-3); pH, Urine 7.5 (5.0-9.0)
[2020-10-08 03:41] VITALS: BMI 28.7
[2020-10-08 05:37] LABS: Hemoglobin 6.6 g/dL (12.0-16.0); Mean Corpuscular HGB CONC 35.3 g/dL (32.0-36.0); Mean Corpuscular Hemoglobin 33.8 pg (27.0-31.0); Mean Corpuscular Volume 95.9 fL (78.0-98.0); Mean Platelet Volume 9.8 fL (7.4-10.4); Platelet Count 20 thou/uL (130-400); Red Blood Cell (RBC) Count 1.94 mill/uL (4.20-5.40); White Blood Cell (WBC) Count 0.1 thou/uL (4.8-10.8)
[2020-10-08 05:54] LABS: Hypochromia SLIGHT = 6-15 cells (100X) (0-5/hpf); MDiff Complete? YES; Platelet Morphology Comment Appears Decreased
[2020-10-08] MEDS ORDERED: Cefepime 1 GM in Sodium Chloride 0.9% 100 ML IVPB SCH (06:00)
[2020-10-08 06:02] LABS: Anion Gap 11 mmol/L (10-20); BUN (Urea Nitrogen) 14 mg/dL (9.8-20.1); Calc. Creatinine Clearance 118 mL/min (70-130); Calcium 8.3 mg/dL (7.8-10.44); Carbon Dioxide 24 mmol/L (23-31); Chloride 103 mmol/L (98-107); Glucose 123 mg/dL (80-115); Potassium 3.2 mmol/L (3.5-5.1); Sodium 135 mmol/L (136-145)
[2020-10-08] MEDS: Morphine 4 MG/ML VIAL SLOW IVP PRN ×2 (06:18→20:31)
[2020-10-08] MEDS: Folic Acid 1 MG TAB PO SCH (09:17)
[2020-10-08] MEDS: Potassium Chloride 10 MEQ TAB PO SCH ×2 (09:17→20:28)
[2020-10-08] MEDS: Gabapentin 300 MG CAP PO SCH ×2 (09:17→20:28)
[2020-10-08] MEDS: Allopurinol 300 MG TAB PO SCH ×2 (09:17→20:29)
[2020-10-08] MEDS: Aluminum & Magnesium Hydroxide 60 ML, diphenhydrAMINE 150 MG, Lidocaine 2% Viscous Solu... SSW SCH ×3 (10:55→21:05)
[2020-10-08] MEDS: Sodium Chloride 0.9% 1,000 ML IV SCH ×2 (12:17→21:04)
[2020-10-08] MEDS ORDERED: Potassium Chloride 20 MEQ TAB PO SCH (15:30)
[2020-10-08] MEDS: CEFEPIME HCL IN DEXTROSE 5 % 1 GM in Premix Bag 1 BAG IVPB SCH (18:08)
[2020-10-09] MEDS: Morphine 4 MG/ML VIAL SLOW IVP PRN ×3 (00:40→21:58)
[2020-10-09] MEDS: Sodium Chloride 0.9% 1,000 ML IV SCH ×2 (01:20→11:12)
[2020-10-09 04:09] LABS: Hemoglobin 7.4 g/dL (12.0-16.0); Mean Corpuscular HGB CONC 35.9 g/dL (32.0-36.0); Mean Corpuscular Volume 91.9 fL (78.0-98.0); Mean Platelet Volume 10.8 fL (7.4-10.4); Platelet Count 11 thou/uL (130-400); Red Blood Cell (RBC) Count 2.24 mill/uL (4.20-5.40); White Blood Cell (WBC) Count 0.5 thou/uL (4.8-10.8)
[2020-10-09 04:17] LABS: Anion Gap 10 mmol/L (10-20); BUN (Urea Nitrogen) 10 mg/dL (9.8-20.1); Calc. Creatinine Clearance 127 mL/min (70-130); Calcium 8.2 mg/dL (7.8-10.44); Carbon Dioxide 20 mmol/L (23-31); Chloride 105 mmol/L (98-107); Glucose 113 mg/dL (80-115); Potassium 4.2 mmol/L (3.5-5.1); Sodium 131 mmol/L (136-145)
[2020-10-09 04:34] LABS: Platelet Morphology Comment Appears Decreased; RBC Morphology Normal
[2020-10-09] MEDS: CEFEPIME HCL IN DEXTROSE 5 % 1 GM in Premix Bag 1 BAG IVPB SCH ×2 (06:02→18:31)
[2020-10-09] MEDS: Aluminum & Magnesium Hydroxide 60 ML, diphenhydrAMINE 150 MG, Lidocaine 2% Viscous Solu... SSW SCH ×4 (08:04→21:59)
[2020-10-09] MEDS: Potassium Chloride 10 MEQ TAB PO SCH ×2 (08:57→21:59)
[2020-10-09] MEDS: Folic Acid 1 MG TAB PO SCH (08:58)
[2020-10-09] MEDS: Allopurinol 300 MG TAB PO SCH ×2 (08:58→21:59)
[2020-10-09] MEDS: Gabapentin 300 MG CAP PO SCH ×2 (08:58→21:59)
[2020-10-09] MEDS: Promethazine HCl 25 MG/ML VIAL IM PRN (18:30)
[2020-10-10 05:19] LABS: Hemoglobin 7.2 g/dL (12.0-16.0); Mean Corpuscular HGB CONC 34.6 g/dL (32.0-36.0); Mean Corpuscular Volume 92.6 fL (78.0-98.0); Mean Platelet Volume 9.6 fL (7.4-10.4); Platelet Count 23 thou/uL (130-400); RBC Distribution Width 19.7 % (11.5-14.5); Red Blood Cell (RBC) Count 2.23 mill/uL (4.20-5.40)
[2020-10-10 05:38] LABS: ALT (SGPT) 15 U/L (8-55); AST (SGOT) 13 U/L (5-34); Albumin 2.9 g/dL (3.4-4.8); Alkaline Phosphatase 84 U/L (40-110); Anion Gap 9 mmol/L (10-20); BUN (Urea Nitrogen) 6 mg/dL (9.8-20.1); Band 8 % (5-11); Bilirubin, Total 1.2 mg/dL (0.2-1.2); Calc. Creatinine Clearance 133 mL/min (70-130); Calcium 8.6 mg/dL (7.8-10.44); Carbon Dioxide 24 mmol/L (23-31); Chloride 103 mmol/L (98-107); Glucose 88 mg/dL (80-115); Lymphocytes 18 % (21-51); MDiff Complete? YES; Metamyelocyte 4 % (0-0); Monocytes 22 % (0-10); Neutrophil 48 % (42-75); Platelet Morphology Comment Appears Decreased; Potassium 4.1 mmol/L (3.5-5.1); Protein, Total 4.9 g/dL (5.8-8.1); Sodium 132 mmol/L (136-145)
[2020-10-10] MEDS: CEFEPIME HCL IN DEXTROSE 5 % 1 GM in Premix Bag 1 BAG IVPB SCH (06:07)
[2020-10-10] MEDS: Allopurinol 300 MG TAB PO SCH (08:04)
[2020-10-10] MEDS: Aluminum & Magnesium Hydroxide 60 ML, diphenhydrAMINE 150 MG, Lidocaine 2% Viscous Solu... SSW SCH ×2 (08:04→12:46)
[2020-10-10] MEDS: Gabapentin 300 MG CAP PO SCH (08:05)
[2020-10-10] MEDS: Folic Acid 1 MG TAB PO SCH (08:06)
[2020-10-10] MEDS: Potassium Chloride 10 MEQ TAB PO SCH (08:06)
[2020-10-10 13:45] VITALS: BP 103/57; TEMP 97.4
== END 2020-10-10 14:30 | disposition home or self-care (01) | DRG 809 ==
LOC: ERS 12:41 → UNDOADMIN 17:31 → ONC 17:31
PROVIDERS: ADMIT Hospitalist; ATTEND Internal Medicine
PROC: 30233R1 Transfusion of Nonautologous Platelets into Peripheral Vein, Percutaneous Approach (ICD-10-PCS; principal; 2020-10-07)
PROC: 30233N0 Transfusion of Autologous Red Blood Cells into Peripheral Vein, Percutaneous Approach (ICD-10-PCS; 2020-10-07)
PROC: 8E0ZXY6 Isolation (ICD-10-PCS; 2020-10-07)
DX: D61.810 Antineoplastic chemotherapy induced pancytopenia (principal); C83.30 Diffuse large B-cell lymphoma, unspecified site; E87.2 Acidosis; E87.1 Hypo-osmolality and hyponatremia; T45.1X5A Adverse effect of antineoplastic and immunosuppressive drugs, initial encounter; E88.09 Other disorders of plasma-protein metabolism, not elsewhere classified; R11.2 Nausea with vomiting, unspecified; J44.9 Chronic obstructive pulmonary disease, unspecified; F41.9 Anxiety disorder, unspecified; F12.10 Cannabis abuse, uncomplicated; D63.0 Anemia in neoplastic disease; M19.90 Unspecified osteoarthritis, unspecified site; E80.6 Other disorders of bilirubin metabolism; E87.6 Hypokalemia; Z88.6 Allergy status to analgesic agent; Z79.899 Other long term (current) drug therapy; Z87.891 Personal history of nicotine dependence
CPT/HCPCS: 36415; 36430; 71046; 74176; 80048; 80053; 81001; 83605; 85025; 85610; 85730; 86850; 86900; 86901; 87040; 93005; 94760; 96365; 96375; 99212; G0463; J0692; J1642; J2270; J2405; J2550; J3490; P9016; P9035; Q0162; Q0163

== ENCOUNTER 2020-12-24 11:12 | Outpatient (CLI) | payer OTHER ==
[2020-12-24 12:53] LABS: BHCG - Serum Negative (NEGATIVE); Pregs Control Background? CLEAR/WHITE (CLR/WHITE); Pregs Control Bar Appear? YES (CONTROL BAR)
[2020-12-24 21:13] LABS: SARS-CoV-2 PCR by NAA Not Detected (NotDetected)
== END 2020-12-24 11:13 | disposition home or self-care (01) ==
LOC: LABBT 11:12
PROVIDERS: ATTEND Student in an Organized Health Care Education/Training Program
DX: Z01.818 Encounter for other preprocedural examination (principal); Z12.11 Encounter for screening for malignant neoplasm of colon; Z20.822 Contact with and (suspected) exposure to COVID-19
CPT/HCPCS: 84703; 85014; 93005; 93010; U0003; U0005

== ENCOUNTER 2020-12-28 05:55 | Day surgery (SDC) | payer OTHER ==
[2020-12-27 11:54] VITALS: BMI 28.4
[2020-12-28] MEDS ORDERED: Fentanyl 100 MCG/2 ML VIAL ONE ×2 (06:42→08:45)
[2020-12-28] MEDS ORDERED: Lidocaine 4% Topical Sol 50 ML BOT ONE (06:43)
[2020-12-28] MEDS ORDERED: Albuterol Sulfate HFA (OR ONLY) ONE (06:43)
[2020-12-28] MEDS ORDERED: EPINEPHrine 1 MG/ML AMP ONE ×2 (06:43→08:18)
[2020-12-28] MEDS ORDERED: Midazolam HCl 2 mg/2 ml Vial ONE (07:09)
[2020-12-28] MEDS ORDERED: Acetaminophen 500 MG TAB ONE (07:09)
[2020-12-28] MEDS ORDERED: Dexamethasone 20 MG/5 ML VIAL ONE (07:35)
[2020-12-28] MEDS ORDERED: Rocuronium Bromide 10 MG/ML (10ML VIAL) ONE (07:35)
[2020-12-28] MEDS ORDERED: Succinylcholine 200 MG/10 ml SYRINGE FS ONE (07:35)
[2020-12-28] MEDS ORDERED: PROPOFOL 200 MG/20 ML VIAL ONE (07:35)
[2020-12-28] MEDS ORDERED: PHENYLEPHRINE-NS 100 MCG/ML 10 ML SYRINGE ONE (07:35)
[2020-12-28] MEDS ORDERED: Ondansetron PF 4 MG/2 ML Vial ONE (07:35)
[2020-12-28] MEDS ORDERED: Lidocaine 1% PF 5 ML VIAL ONE (07:35)
[2020-12-31 10:39] LABS: Fungus Stain Final report (.)
== END 2020-12-28 10:30 | disposition home or self-care (01) ==
LOC: SDC 05:55
PROVIDERS: ATTEND Student in an Organized Health Care Education/Training Program
PROC: 0CBR8ZZ Excision of Epiglottis, Via Natural or Artificial Opening Endoscopic (ICD-10-PCS; principal; 2020-12-28)
PROC: 0C9J3ZX Drainage of Minor Salivary Gland, Percutaneous Approach, Diagnostic (ICD-10-PCS; principal; 2020-12-28)
PROC: 0BJ08ZZ Inspection of Tracheobronchial Tree, Via Natural or Artificial Opening Endoscopic (ICD-10-PCS; principal; 2020-12-28)
DX: J38.7 Other diseases of larynx (principal); K11.8 Other diseases of salivary glands; K14.8 Other diseases of tongue; C83.30 Diffuse large B-cell lymphoma, unspecified site; Z79.899 Other long term (current) drug therapy; Z88.5 Allergy status to narcotic agent; Z88.8 Allergy status to other drugs, medicaments and biological substances
CPT/HCPCS: 87070; 87102; 87205; 87206; 88184; 88305; J0171; J1100; J2250; J2405; J2704; J3010

== ENCOUNTER 2020-12-31 15:08 | Outpatient (CLI) | payer OTHER | END 2020-12-31 15:09 | disposition home or self-care (01) | LOC: BICMAMMO 15:08 | PROVIDERS: ATTEND Family Medicine | DX: Z12.31 Encounter for screening mammogram for malignant neoplasm of breast (principal); Z85.72 Personal history of non-Hodgkin lymphomas | CPT/HCPCS: 77063; 77067 ==

== ENCOUNTER 2021-01-14 08:00 | Outpatient (CLI) | payer OTHER | END 2021-01-14 08:01 | disposition home or self-care (01) | LOC: PET 08:00 | PROVIDERS: ATTEND Radiology Radiation Oncology | DX: C83.33 Diffuse large B-cell lymphoma, intra-abdominal lymph nodes (principal); K11.8 Other diseases of salivary glands | CPT/HCPCS: 78815; A9552 ==

== ENCOUNTER 2021-08-15 15:05 | Outpatient (CLI) | payer BC | END 2021-08-15 15:06 | disposition home or self-care (01) | LOC: BICCT 15:05 | PROVIDERS: ATTEND Student in an Organized Health Care Education/Training Program | DX: K11.8 Other diseases of salivary glands (principal) | CPT/HCPCS: 70491; Q9967 ==

== ENCOUNTER 2021-08-19 08:45 | Outpatient (CLI) | payer BC | END 2021-08-19 08:46 | disposition home or self-care (01) | LOC: PET 08:45 | PROVIDERS: ATTEND Radiology Radiation Oncology | DX: C83.33 Diffuse large B-cell lymphoma, intra-abdominal lymph nodes (principal) | CPT/HCPCS: 78815; A9552 ==

== ENCOUNTER 2021-10-24 14:04 | Outpatient (CLI) | payer BC | END 2021-10-24 14:05 | disposition home or self-care (01) | LOC: SCSMRI 14:04 | PROVIDERS: ATTEND Nurse Practitioner Family | DX: S32.010A Wedge compression fracture of first lumbar vertebra, initial encounter for closed fracture (principal); S32.020A Wedge compression fracture of second lumbar vertebra, initial encounter for closed fracture; M48.061 Spinal stenosis, lumbar region without neurogenic claudication; M47.816 Spondylosis without myelopathy or radiculopathy, lumbar region | CPT/HCPCS: 72148 ==

== ENCOUNTER 2021-12-05 09:38 | Inpatient (IN) | payer BC, SELFPAY ==
[~2021-12-05 09:38] MED LIST changes: -Iopamidol 370 76% 100 ML VIAL ONE; +Iopamidol-370 76% 500 ML 1 ML ONE
[2021-12-05] MEDS ORDERED: Morphine 4 MG/ML VIAL ONE (10:20)
[2021-12-05] MEDS ORDERED: Ondansetron PF 4 MG/2 ML Vial ONE (10:21)
[2021-12-05 11:02] LABS: Hemoglobin 6.4 g/dL (12.0-16.0); Mean Corpuscular HGB CONC 32.4 g/dL (32.0-36.0); Mean Corpuscular Hemoglobin 38.1 pg (27.0-31.0); Mean Platelet Volume 12.1 fL (7.4-10.4); Platelet Count 12 thou/uL (130-400); RBC Distribution Width 15.5 % (11.5-14.5); Red Blood Cell (RBC) Count 1.69 mill/uL (4.20-5.40); White Blood Cell (WBC) Count 2.4 thou/uL (4.8-10.8)
[2021-12-05 11:03] LABS: ALT (SGPT) 9 U/L (8-55); AST (SGOT) 16 U/L (5-34); Albumin 2.9 g/dL (3.4-4.8); Alkaline Phosphatase 229 U/L (40-110); Anion Gap 15 mmol/L (10-20); BUN (Urea Nitrogen) 23 mg/dL (9.8-20.1); Bilirubin, Total 6.1 mg/dL (0.2-1.2); Calc. Creatinine Clearance 0 mL/min (70-130); Calcium 8.2 mg/dL (7.8-10.44); Carbon Dioxide 22 mmol/L (23-31); Chloride 92 mmol/L (98-107); Estimated GFR 58; Globulin 2.7 g/dL (2.4-3.5); Glucose 180 mg/dL (80-115); Lipase Less than 4 U/L (8-78); Potassium 3.1 mmol/L (3.5-5.1); Protein, Total 5.6 g/dL (5.8-8.1); Sodium 126 mmol/L (136-145)
[2021-12-05 11:06] LABS: Band 16 % (5-11); Differential Comment Immature Cell(s); Lymphocytes 4 % (21-51); MDiff Complete? YES; Macrocytosis MODERATE=16-30 cells (100X) (0-5/hpf); Monocytes 7 % (0-10); Neutrophil 72 % (42-75); Platelet Morphology Comment Appears Decreased; Reflex for Review?? YES; Tear Drops SLIGHT = 2-5 cells (100X) (0-1/hpf); Toxic Granulation SLIGHT
[2021-12-05 11:21] LABS: Bacteria/HPF 4+ HPF (None Seen); Bilirubin 1+ (Negative); Blood, Urine 2+ (Negative); Clarity Extra Turbid (Clear); Glucose, Urine (Dipstick) Normal (Negative); Ketone, Urine Negative (Negative); Leukocyte 500 Leu/uL (Negative); Nitrite Negative (Negative); Protein, Urine (Dipstick) 200 mg/dL (Neg-Trace); Specific Gravity, Urine 1.016 (1.002-1.036); Urobilinogen 6 mg/dL (Less than 2); WBC/HPF Greater than 50 HPF (0-3); pH, Urine 5.5 (5.0-9.0)
[2021-12-05] MEDS ORDERED: cefTRIAXone\\ROCEPHIN 1 GM VIAL ONE (12:07)
[2021-12-05] MEDS ORDERED: Ondansetron ODT 4 MG TAB PO PRN (13:47)
[2021-12-05] MEDS ORDERED: traMADol HCl 50 MG TAB PO PRN (13:51)
[2021-12-05] MEDS ORDERED: guaiFENesin 200 MG TAB PO PRN (13:52)
[2021-12-05 14:08] LABS: Lactic Acid 1.6 mmol/L (0.5-2.2)
[2021-12-05 15:07] LABS: INR-International Normal Ratio 1.3; PTT 43.1 sec (22.9-36.1); Prothrombin Time 16.3 sec (12.0-14.7)
[2021-12-05 15:43] LABS: Hemoglobin A1c 4.5 % (4.0-6.0)
[2021-12-05 15:48] LABS: HBCM Index 0.06 S/CO (0-0.79); HBSAg Index 0.34 S/CO (0-0.99); Hep A IgM AB Non-Reactive (NonReactive); Hep A IgM S/CO 0.15 S/CO (0-0.79); Hep B Surf Ag Non-Reactive S/CO (NonReactive); Hep C IgG Ab Non-Reactive (NonReactive); Hep C Index 0.09 S/CO (0-0.79); Hepatitis B Core IgM Abs Non-Reactive (NonReactive)
[2021-12-05] MEDS ORDERED: Potassium Chloride 20 MEQ TAB PO SCH (15:49)
[2021-12-05] MEDS ORDERED: Vancomycin 1 GM/200 ML BAG ONE (16:35)
[2021-12-05] MEDS ORDERED: Vancomycin HCl 500 MG in Sodium Chloride 0.9% 100 ML IVPB SCH (18:00)
[2021-12-05 18:07] LABS: Hemoglobin 7.1 g/dL (12.0-16.0); Mean Corpuscular HGB CONC 33.3 g/dL (32.0-36.0); Mean Corpuscular Hemoglobin 36.1 pg (27.0-31.0); Platelet Count 7 thou/uL (130-400); RBC Distribution Width 19.3 % (11.5-14.5); Red Blood Cell (RBC) Count 1.96 mill/uL (4.20-5.40); White Blood Cell (WBC) Count 1.7 thou/uL (4.8-10.8)
[2021-12-05 18:08] LABS: Reticulocyte Count 3.7 % (0.5-1.5)
[2021-12-05] MEDS: Sodium Chloride 0.9% 1,000 ML IV SCH (18:14)
[2021-12-05] MEDS ORDERED: FLU VACC QS2022-23(6MOS UP)/PF 60 MCG/0.5 ML SYRINGE IM ONE (18:15)
[2021-12-05 18:18] LABS: Anion Gap 13 mmol/L (10-20); BUN (Urea Nitrogen) 22 mg/dL (9.8-20.1); Calc. Creatinine Clearance 93 mL/min (70-130); Calcium 7.6 mg/dL (7.8-10.44); Carbon Dioxide 22 mmol/L (23-31); Chloride 98 mmol/L (98-107); Estimated GFR 74; Glucose 154 mg/dL (80-115); Potassium 3.1 mmol/L (3.5-5.1); Sodium 130 mmol/L (136-145)
[2021-12-05 18:49] LABS: Anisocytosis SLIGHT = 6-15 cells (100X) (0-5/hpf); Band 15 % (5-11); Large Platelets SLIGHT; Lymphocytes 5 % (21-51); MDiff Complete? YES; Macrocytosis SLIGHT = 6-15 cells (100X) (0-5/hpf); Monocytes 6 % (0-10); Neutrophil 71 % (42-75); Ovalocytes SLIGHT = 2-5 cells (100X) (0-1/hpf); Platelet Morphology Comment Appears Decreased; Polychromasia SLIGHT = 2-3 cells (100X) (0-2/hpf); Reactive Lymphocytes 3 % (0-10)
[2021-12-05 18:51] LABS: Toxic Granulation SLIGHT
[2021-12-06] MEDS: Sodium Chloride 0.9% 1,000 ML IV SCH (03:24)
[2021-12-06 04:52] LABS: ALT (SGPT) 9 U/L (8-55); AST (SGOT) 15 U/L (5-34); Albumin 2.6 g/dL (3.4-4.8); Alkaline Phosphatase 177 U/L (40-110); Anion Gap 11 mmol/L (10-20); BUN (Urea Nitrogen) 19 mg/dL (9.8-20.1); Bilirubin, Total 5.4 mg/dL (0.2-1.2); Calc. Creatinine Clearance 105 mL/min (70-130); Calcium 7.9 mg/dL (7.8-10.44); Carbon Dioxide 24 mmol/L (23-31); Chloride 101 mmol/L (98-107); Estimated GFR 85; Globulin 2.2 g/dL (2.4-3.5); Glucose 121 mg/dL (80-115); Potassium 3.2 mmol/L (3.5-5.1); Protein, Total 4.8 g/dL (5.8-8.1); Sodium 133 mmol/L (136-145)
[2021-12-06 04:55] LABS: Anisocytosis SLIGHT = 6-15 cells (100X) (0-5/hpf); Band 11 % (5-11); Lymphocytes 20 % (21-51); MDiff Complete? YES; Macrocytosis MODERATE=16-30 cells (100X) (0-5/hpf); Mean Corpuscular HGB CONC 32.3 g/dL (32.0-36.0); Mean Corpuscular Hemoglobin 33.9 pg (27.0-31.0); Mean Platelet Volume 10.7 fL (7.4-10.4); Monocytes 7 % (0-10); Neutrophil 62 % (42-75); Nucleated RBC 1 % (0); Ovalocytes SLIGHT = 2-5 cells (100X) (0-1/hpf); Platelet Count 17 thou/uL (130-400); Platelet Morphology Comment Appears Decreased; Red Blood Cell (RBC) Count 2.06 mill/uL (4.20-5.40); White Blood Cell (WBC) Count 2.1 thou/uL (4.8-10.8)
[2021-12-06] MEDS: Cefepime 2 GM in Sodium Chloride 0.9% 100 ML IVPB SCH ×2 (05:23→16:51)
[2021-12-06 10:59] LABS: Bilirubin, Direct 2.3 mg/dL (0.1-0.3); Bilirubin, Total 5.2 mg/dL (0.2-1.2)
[2021-12-06 11:04] LABS: Hemoglobin 7.6 g/dL (12.0-16.0); Platelet Count 16 thou/uL (130-400)
[2021-12-06] MEDS ORDERED: cefTRIAXone\\ROCEPHIN 1 GM in Sodium Chloride 0.9% 100 ML IVPB SCH (12:00)
[2021-12-06] MEDS ORDERED: Gabapentin 300 MG CAP PO SCH (14:15)
[2021-12-06] MEDS ORDERED: VANCOMYCIN 1.25 GM/250 ML BAG 1.25 GM in Premix Bag 1 BAG IVPB SCH (16:00)
[2021-12-06] MEDS: HYDROcodone/Acetaminophen 5/325 mg Tablet PO PRN (16:50)
[2021-12-06] MEDS: metroNIDAZOLE 500 MG in Premix Bag 1 BAG IVPB SCH (20:04)
[2021-12-06] MEDS: Gabapentin 300 MG CAP PO SCH (20:05)
[2021-12-07] MEDS: metroNIDAZOLE 500 MG in Premix Bag 1 BAG IVPB SCH ×5 (00:08→23:56)
[2021-12-07] MEDS: Cefepime 2 GM in Sodium Chloride 0.9% 100 ML IVPB SCH (05:05)
[2021-12-07 05:47] LABS: Hemoglobin 7.4 g/dL (12.0-16.0); Mean Corpuscular HGB CONC 33.4 g/dL (32.0-36.0); Mean Corpuscular Hemoglobin 34.2 pg (27.0-31.0); Mean Platelet Volume 12.1 fL (7.4-10.4); Platelet Count 12 thou/uL (130-400); Red Blood Cell (RBC) Count 2.17 mill/uL (4.20-5.40); White Blood Cell (WBC) Count 1.8 thou/uL (4.8-10.8)
[2021-12-07 06:04] LABS: ALT (SGPT) 7 U/L (8-55); AST (SGOT) 15 U/L (5-34); Albumin 2.4 g/dL (3.4-4.8); Alkaline Phosphatase 157 U/L (40-110); Anion Gap 9 mmol/L (10-20); BUN (Urea Nitrogen) 15 mg/dL (9.8-20.1); Bilirubin, Total 4.3 mg/dL (0.2-1.2); Calc. Creatinine Clearance 107 mL/min (70-130); Calcium 7.6 mg/dL (7.8-10.44); Carbon Dioxide 25 mmol/L (23-31); Chloride 101 mmol/L (98-107); Estimated GFR 88; Globulin 2.3 g/dL (2.4-3.5); Glucose 115 mg/dL (80-115); Potassium 3.3 mmol/L (3.5-5.1); Protein, Total 4.7 g/dL (5.8-8.1); Sodium 132 mmol/L (136-145)
[2021-12-07 06:09] LABS: Band 12 % (5-11); Lymphocytes 8 % (21-51); MDiff Complete? YES; Macrocytosis SLIGHT = 6-15 cells (100X) (0-5/hpf); Monocytes 16 % (0-10); Neutrophil 64 % (42-75); Platelet Morphology Comment Appears Decreased
[2021-12-07] MEDS: Gabapentin 300 MG CAP PO SCH ×2 (09:09→20:25)
[2021-12-07] MEDS: Pantoprazole 40 MG VIAL IVP SCH (09:11)
[2021-12-07] MEDS: HYDROcodone/Acetaminophen 5/325 mg Tablet PO PRN ×2 (09:28→15:27)
[2021-12-07] MEDS ORDERED: Electrolyte Replacement Protocol FS PRN (12:15)
[2021-12-07] MEDS ORDERED: Potassium Chloride 20 MEQ TAB PO SCH (13:15)
[2021-12-07] MEDS: cefTRIAXone\\ROCEPHIN 2 GM in Sodium Chloride 0.9% 100 ML IVPB SCH (14:13)
[2021-12-07 15:18] LABS: Vancomycin, Trough 1.8 ug/mL
[2021-12-07] MEDS: HYDROcodone/Acetaminophen 10/325 mg Tablet PO PRN (20:27)
[2021-12-08 05:40] LABS: ALT (SGPT) Less than 7 U/L (8-55); AST (SGOT) 13 U/L (5-34); Albumin 2.5 g/dL (3.4-4.8); Alkaline Phosphatase 157 U/L (40-110); Anion Gap 9 mmol/L (10-20); BUN (Urea Nitrogen) 11 mg/dL (9.8-20.1); Calc. Creatinine Clearance 108 mL/min (70-130); Calcium 7.4 mg/dL (7.8-10.44); Carbon Dioxide 24 mmol/L (23-31); Chloride 102 mmol/L (98-107); Estimated GFR 89; Globulin 2.4 g/dL (2.4-3.5); Glucose 138 mg/dL (80-115); Protein, Total 4.9 g/dL (5.8-8.1); Sodium 132 mmol/L (136-145)
[2021-12-08 05:45] LABS: Hemoglobin 7.6 g/dL (12.0-16.0); Mean Corpuscular HGB CONC 32.6 g/dL (32.0-36.0); Mean Corpuscular Hemoglobin 33.4 pg (27.0-31.0); Mean Platelet Volume 10.8 fL (7.4-10.4); Platelet Count 12 thou/uL (130-400); RBC Distribution Width 19.7 % (11.5-14.5); Red Blood Cell (RBC) Count 2.27 mill/uL (4.20-5.40); White Blood Cell (WBC) Count 2.1 thou/uL (4.8-10.8)
[2021-12-08] MEDS: metroNIDAZOLE 500 MG in Premix Bag 1 BAG IVPB SCH ×3 (06:15→17:34)
[2021-12-08] MEDS: Ondansetron PF 4 MG/2 ML Vial IVP PRN ×2 (06:15→21:52)
[2021-12-08] MEDS ORDERED: Potassium Chloride 20 MEQ TAB PO SCH (08:00)
[2021-12-08] MEDS: Gabapentin 300 MG CAP PO SCH ×2 (08:04→20:11)
[2021-12-08] MEDS: Pantoprazole 40 MG VIAL IVP SCH (08:05)
[2021-12-08 08:11] LABS: Band 18 % (5-11); Lymphocytes 16 % (21-51); MDiff Complete? YES; Monocytes 6 % (0-10); Neutrophil 56 % (42-75); Platelet Morphology Comment Appears Decreased; Polychromasia SLIGHT = 2-3 cells (100X) (0-2/hpf); Reactive Lymphocytes 4 % (0-10)
[2021-12-08] MEDS: HYDROcodone/Acetaminophen 10/325 mg Tablet PO PRN (12:09)
[2021-12-08] MEDS: cefTRIAXone\\ROCEPHIN 2 GM in Sodium Chloride 0.9% 100 ML IVPB SCH (13:03)
[2021-12-09] MEDS: metroNIDAZOLE 500 MG in Premix Bag 1 BAG IVPB SCH ×4 (00:14→18:55)
[2021-12-09 06:23] LABS: Hemoglobin 6.1 g/dL (12.0-16.0); Mean Corpuscular HGB CONC 33.7 g/dL (32.0-36.0); Mean Corpuscular Hemoglobin 34.8 pg (27.0-31.0); Mean Platelet Volume 12.4 fL (7.4-10.4); Platelet Count 7 thou/uL (130-400); RBC Distribution Width 19.5 % (11.5-14.5); Red Blood Cell (RBC) Count 1.75 mill/uL (4.20-5.40); White Blood Cell (WBC) Count 1.2 thou/uL (4.8-10.8)
[2021-12-09 07:09] LABS: Band 5 % (5-11); Eosinophils 2 % (0-10); Lymphocytes 27 % (21-51); MDiff Complete? YES; Neutrophil 66 % (42-75); Platelet Morphology Comment Appears Decreased; Toxic Granulation SLIGHT
[2021-12-09 07:43] LABS: Chloride 106 mmol/L (98-107); Potassium 3.1 mmol/L (3.5-5.1); Sodium 134 mmol/L (136-145)
[2021-12-09 07:44] LABS: Calcium 6.7 mg/dL (7.8-10.44); Glucose 128 mg/dL (80-115)
[2021-12-09 07:46] LABS: Anion Gap 8 mmol/L (10-20); Carbon Dioxide 23 mmol/L (23-31)
[2021-12-09 07:48] LABS: Calc. Creatinine Clearance 131 mL/min (70-130); Estimated GFR 100
[2021-12-09 07:49] LABS: BUN (Urea Nitrogen) 7 mg/dL (9.8-20.1)
[2021-12-09] MEDS ORDERED: Potassium Chloride 20 MEQ TAB PO SCH (09:00)
[2021-12-09] MEDS: Pantoprazole 40 MG VIAL IVP SCH (09:17)
[2021-12-09] MEDS: Gabapentin 300 MG CAP PO SCH (09:17)
[2021-12-09] MEDS: cefTRIAXone\\ROCEPHIN 2 GM in Sodium Chloride 0.9% 100 ML IVPB SCH (17:44)
[2021-12-09] MEDS: HYDROcodone/Acetaminophen 10/325 mg Tablet PO PRN (19:39)
[2021-12-10] MEDS: HYDROcodone/Acetaminophen 10/325 mg Tablet PO PRN ×2 (00:19→20:17)
[2021-12-10] MEDS: Gabapentin 300 MG CAP PO SCH ×3 (00:19→20:16)
[2021-12-10] MEDS: metroNIDAZOLE 500 MG in Premix Bag 1 BAG IVPB SCH ×4 (00:20→17:58)
[2021-12-10] MEDS: Ondansetron PF 4 MG/2 ML Vial IVP PRN (08:28)
[2021-12-10] MEDS: Pantoprazole 40 MG VIAL IVP SCH (08:28)
[2021-12-10 12:38] LABS: #Lymphocytes 0.3 thou/uL (1.20-3.40); #Monocytes 0.1 thou/uL (0.11-0.59); #Neutrophils 0.8 thou/uL (1.40-6.50); %Eosinophils 0.5 % (0.0-10.0); %Lymphocytes 21.9 % (21.0-51.0); %Monocytes 5.4 % (0.0-10.0); %Neutrophils 72.2 % (42.0-75.0); Hemoglobin 6.9 g/dL (12.0-16.0); Mean Corpuscular HGB CONC 31.7 g/dL (32.0-36.0); Mean Corpuscular Hemoglobin 32.1 pg (27.0-31.0); Mean Platelet Volume 9.4 fL (7.4-10.4); Platelet Count 13 thou/uL (130-400); RBC Distribution Width 18.8 % (11.5-14.5); Red Blood Cell (RBC) Count 2.16 mill/uL (4.20-5.40); White Blood Cell (WBC) Count 1.1 thou/uL (4.8-10.8)
[2021-12-10 12:46] LABS: ALT (SGPT) Less than 7 U/L (8-55); AST (SGOT) 12 U/L (5-34); Albumin 2.4 g/dL (3.4-4.8); Alkaline Phosphatase 143 U/L (40-110); Anion Gap 10 mmol/L (10-20); BUN (Urea Nitrogen) 5 mg/dL (9.8-20.1); Bilirubin, Direct 0.7 mg/dL (0.1-0.3); Bilirubin, Total 2.2 mg/dL (0.2-1.2); Calc. Creatinine Clearance 112 mL/min (70-130); Calcium 7.5 mg/dL (7.8-10.44); Carbon Dioxide 25 mmol/L (23-31); Chloride 99 mmol/L (98-107); Estimated GFR 92; Globulin 2.4 g/dL (2.4-3.5); Glucose 216 mg/dL (80-115); Potassium 3.6 mmol/L (3.5-5.1); Protein, Total 4.8 g/dL (5.8-8.1); Sodium 130 mmol/L (136-145)
[2021-12-10] MEDS ORDERED: EPINEPHrine 1 MG/ML AMP IM PRN (12:50)
[2021-12-10] MEDS: cefTRIAXone\\ROCEPHIN 2 GM in Sodium Chloride 0.9% 100 ML IVPB SCH (13:13)
[2021-12-10 16:30] LABS: Campy jejuni + coli by PCR Negative (Negative); STEC Shiga Toxin 1+2 Negative (Negative); Salmonella spp. by PCR Negative (Negative); Shigella spp + EIEC by PCR Negative (Negative)
[2021-12-11] MEDS: metroNIDAZOLE 500 MG in Premix Bag 1 BAG IVPB SCH ×3 (00:24→14:29)
[2021-12-11] MEDS: HYDROcodone/Acetaminophen 10/325 mg Tablet PO PRN ×3 (00:25→20:20)
[2021-12-11] MEDS: Gabapentin 300 MG CAP PO SCH ×3 (10:21→20:21)
[2021-12-11] MEDS: Ondansetron PF 4 MG/2 ML Vial IVP PRN (10:22)
[2021-12-11] MEDS: Pantoprazole 40 MG VIAL IVP SCH (10:22)
[2021-12-11 12:49] LABS: #Lymphocytes 0.3 thou/uL (1.20-3.40); #Monocytes 0.1 thou/uL (0.11-0.59); #Neutrophils 0.8 thou/uL (1.40-6.50); %Eosinophils 1.3 % (0.0-10.0); %Lymphocytes 27.8 % (21.0-51.0); %Monocytes 4.2 % (0.0-10.0); %Neutrophils 66.8 % (42.0-75.0); Mean Corpuscular HGB CONC 32.3 g/dL (32.0-36.0); Mean Corpuscular Hemoglobin 32.1 pg (27.0-31.0); Mean Corpuscular Volume 99.1 fL (78.0-98.0); Mean Platelet Volume 8.8 fL (7.4-10.4); Platelet Count 13 thou/uL (130-400); RBC Distribution Width 18.8 % (11.5-14.5); Red Blood Cell (RBC) Count 2.48 mill/uL (4.20-5.40); White Blood Cell (WBC) Count 1.2 thou/uL (4.8-10.8)
[2021-12-11 13:04] LABS: ALT (SGPT) Less than 7 U/L (8-55); AST (SGOT) 14 U/L (5-34); Albumin 2.4 g/dL (3.4-4.8); Alkaline Phosphatase 148 U/L (40-110); Anion Gap 11 mmol/L (10-20); BUN (Urea Nitrogen) 6 mg/dL (9.8-20.1); Bilirubin, Direct 0.7 mg/dL (0.1-0.3); Bilirubin, Total 1.8 mg/dL (0.2-1.2); Calc. Creatinine Clearance 127 mL/min (70-130); Calcium 7.8 mg/dL (7.8-10.44); Carbon Dioxide 25 mmol/L (23-31); Chloride 99 mmol/L (98-107); Estimated GFR 99; Globulin 2.8 g/dL (2.4-3.5); Glucose 118 mg/dL (80-115); Potassium 3.4 mmol/L (3.5-5.1); Protein, Total 5.2 g/dL (5.8-8.1); Sodium 132 mmol/L (136-145)
[2021-12-11] MEDS ORDERED: Piperacillin/Tazobactam 3.375 GM in Sodium Chloride 0.9% 100 ML IVPB SCH (14:00)
[2021-12-11] MEDS ORDERED: Potassium Chloride 20 MEQ TAB PO SCH (14:30)
[2021-12-11] MEDS: Piperacillin/Tazobactam 3.375 GM in Sodium Chloride 0.9% 100 ML IVPB SCH (17:26)
[2021-12-11 22:02] LABS: Potassium 3.6 mmol/L (3.5-5.1)
[2021-12-12] MEDS: Piperacillin/Tazobactam 3.375 GM in Sodium Chloride 0.9% 100 ML IVPB SCH ×3 (02:19→18:18)
[2021-12-12 05:41] LABS: Hemoglobin 8.7 g/dL (12.0-16.0); Mean Corpuscular HGB CONC 32.7 g/dL (32.0-36.0); Mean Corpuscular Hemoglobin 32.1 pg (27.0-31.0); Mean Platelet Volume 11.3 fL (7.4-10.4); Platelet Count 13 thou/uL (130-400); RBC Distribution Width 18.4 % (11.5-14.5); Red Blood Cell (RBC) Count 2.72 mill/uL (4.20-5.40); White Blood Cell (WBC) Count 1.4 thou/uL (4.8-10.8)
[2021-12-12 05:59] LABS: ALT (SGPT) Less than 7 U/L (8-55); AST (SGOT) 13 U/L (5-34); Albumin 2.7 g/dL (3.4-4.8); Alkaline Phosphatase 179 U/L (40-110); Anion Gap 9 mmol/L (10-20); BUN (Urea Nitrogen) 6 mg/dL (9.8-20.1); Bilirubin, Total 2.1 mg/dL (0.2-1.2); Calc. Creatinine Clearance 112 mL/min (70-130); Calcium 8.5 mg/dL (7.8-10.44); Carbon Dioxide 27 mmol/L (23-31); Chloride 102 mmol/L (98-107); Estimated GFR 92; Globulin 3.2 g/dL (2.4-3.5); Glucose 120 mg/dL (80-115); Protein, Total 5.9 g/dL (5.8-8.1); Sodium 134 mmol/L (136-145)
[2021-12-12] MEDS ORDERED: Lorazepam 1 MG TAB PO PRN (07:30)
[2021-12-12] MEDS: HYDROcodone/Acetaminophen 10/325 mg Tablet PO PRN ×2 (08:02→18:17)
[2021-12-12] MEDS: Gabapentin 300 MG CAP PO SCH ×2 (08:02→20:23)
[2021-12-12] MEDS: Pantoprazole 40 MG VIAL IVP SCH (08:03)
[2021-12-12 08:22] LABS: #Lymphocytes 0.4 thou/uL (1.20-3.40); #Monocytes 0.1 thou/uL (0.11-0.59); #Neutrophils 0.9 thou/uL (1.40-6.50); %Eosinophils 1.4 % (0.0-10.0); %Lymphocytes 31.8 % (21.0-51.0); %Monocytes 3.6 % (0.0-10.0); %Neutrophils 63.2 % (42.0-75.0); Band 16 % (5-11); Lymphocytes 24 % (21-51); MDiff Complete? YES; Monocytes 4 % (0-10); Neutrophil 56 % (42-75); Platelet Morphology Comment Appears Decreased; Polychromasia SLIGHT = 2-3 cells (100X) (0-2/hpf)
[2021-12-12 12:23] VITALS: BMI 36.1
[2021-12-12] MEDS ORDERED: Midazolam HCl 2 mg/2 ml Vial ONE (12:57)
[2021-12-12] MEDS ORDERED: Fentanyl 100 MCG/2 ML VIAL ONE (12:57)
[2021-12-12] MEDS ORDERED: Lidocaine 2% PF 5 ML VIAL ONE (12:57)
[2021-12-12] MEDS ORDERED: Sodium Bicarbonate 2.5 MEQ/5 ML VIAL ONE (12:57)
[2021-12-12] MEDS ORDERED: Acetaminophen 500 MG TAB PO PRN (16:03)
[2021-12-12] MEDS ORDERED: Sodium Chloride 0.9% 1,000 ML IV SCH (16:15)
[2021-12-12] MEDS: Ondansetron PF 4 MG/2 ML Vial IVP PRN (18:17)
[2021-12-12] MEDS: Morphine 2 MG/ML VIAL SLOW IVP PRN (21:04)
[2021-12-12] MEDS: Lorazepam 0.5 MG TAB PO PRN (21:05)
[2021-12-13] MEDS: Piperacillin/Tazobactam 3.375 GM in Sodium Chloride 0.9% 100 ML IVPB SCH ×2 (02:40→09:50)
[2021-12-13 09:22] LABS: ALT (SGPT) Less than 7 U/L (8-55); AST (SGOT) 9 U/L (5-34); Albumin 2.3 g/dL (3.4-4.8); Alkaline Phosphatase 174 U/L (40-110); Anion Gap 9 mmol/L (10-20); BUN (Urea Nitrogen) 7 mg/dL (9.8-20.1); Calc. Creatinine Clearance 110 mL/min (70-130); Calcium 7.9 mg/dL (7.8-10.44); Carbon Dioxide 25 mmol/L (23-31); Chloride 101 mmol/L (98-107); Estimated GFR 91; Globulin 2.7 g/dL (2.4-3.5); Glucose 235 mg/dL (80-115); Potassium 3.7 mmol/L (3.5-5.1); Sodium 131 mmol/L (136-145)
[2021-12-13 09:23] LABS: #Lymphocytes 0.3 thou/uL (1.20-3.40); #Neutrophils 0.6 thou/uL (1.40-6.50); %Eosinophils 0.9 % (0.0-10.0); %Lymphocytes 33.4 % (21.0-51.0); %Monocytes 3.6 % (0.0-10.0); %Neutrophils 62.1 % (42.0-75.0); Hemoglobin 7.1 g/dL (12.0-16.0); Mean Corpuscular HGB CONC 32.5 g/dL (32.0-36.0); Mean Corpuscular Hemoglobin 32.4 pg (27.0-31.0); Mean Corpuscular Volume 99.8 fL (78.0-98.0); Mean Platelet Volume 9.6 fL (7.4-10.4); Platelet Count 9 thou/uL (130-400); Red Blood Cell (RBC) Count 2.19 mill/uL (4.20-5.40)
[2021-12-13] MEDS: Gabapentin 300 MG CAP PO SCH ×2 (09:49→20:56)
[2021-12-13] MEDS: Pantoprazole 40 MG VIAL IVP SCH (09:50)
[2021-12-13] MEDS: Morphine 2 MG/ML VIAL SLOW IVP PRN (09:51)
[2021-12-13] MEDS: HYDROcodone/Acetaminophen 10/325 mg Tablet PO PRN ×2 (13:53→20:57)
[2021-12-13] MEDS: Ondansetron PF 4 MG/2 ML Vial IVP PRN (13:57)
[2021-12-13] MEDS: Lorazepam 0.5 MG TAB PO PRN (20:57)
[2021-12-14] MEDS: HYDROcodone/Acetaminophen 10/325 mg Tablet PO PRN ×2 (09:02→21:36)
[2021-12-14] MEDS: Gabapentin 300 MG CAP PO SCH ×2 (10:53→21:36)
[2021-12-14] MEDS: Pantoprazole 40 MG VIAL IVP SCH (10:53)
[2021-12-14 11:26] LABS: #Lymphocytes 0.5 thou/uL (1.20-3.40); #Neutrophils 0.8 thou/uL (1.40-6.50); %Eosinophils 0.7 % (0.0-10.0); %Lymphocytes 34.5 % (21.0-51.0); %Monocytes 2.5 % (0.0-10.0); %Neutrophils 62.3 % (42.0-75.0); Hemoglobin 8.6 g/dL (12.0-16.0); Mean Corpuscular Hemoglobin 32.1 pg (27.0-31.0); Mean Corpuscular Volume 97.2 fL (78.0-98.0); Platelet Count 24 thou/uL (130-400); RBC Distribution Width 17.2 % (11.5-14.5); Red Blood Cell (RBC) Count 2.68 mill/uL (4.20-5.40); White Blood Cell (WBC) Count 1.4 thou/uL (4.8-10.8)
[2021-12-14 11:29] LABS: ALT (SGPT) Less than 7 U/L (8-55); AST (SGOT) 16 U/L (5-34); Albumin 2.7 g/dL (3.4-4.8); Alkaline Phosphatase 226 U/L (40-110); Anion Gap 9 mmol/L (10-20); BUN (Urea Nitrogen) 7 mg/dL (9.8-20.1); Bilirubin, Total 3.2 mg/dL (0.2-1.2); Calc. Creatinine Clearance 127 mL/min (70-130); Carbon Dioxide 26 mmol/L (23-31); Chloride 102 mmol/L (98-107); Estimated GFR 99; Globulin 3.1 g/dL (2.4-3.5); Glucose 99 mg/dL (80-115); Potassium 3.9 mmol/L (3.5-5.1); Protein, Total 5.8 g/dL (5.8-8.1); Sodium 133 mmol/L (136-145)
[2021-12-14 12:02] LABS: Hemoglobin 9.7 g/dL (12.0-16.0)
[2021-12-14] MEDS: Ondansetron PF 4 MG/2 ML Vial IVP PRN (15:55)
[2021-12-15 06:02] LABS: #Lymphocytes 0.4 thou/uL (1.20-3.40); #Monocytes 0.1 thou/uL (0.11-0.59); #Neutrophils 0.5 thou/uL (1.40-6.50); %Eosinophils 1.4 % (0.0-10.0); %Lymphocytes 41.1 % (21.0-51.0); %Monocytes 6.8 % (0.0-10.0); %Neutrophils 50.8 % (42.0-75.0); Hemoglobin 7.2 g/dL (12.0-16.0); Mean Corpuscular HGB CONC 32.9 g/dL (32.0-36.0); Mean Corpuscular Hemoglobin 31.9 pg (27.0-31.0); Mean Platelet Volume 9.3 fL (7.4-10.4); Platelet Count 20 thou/uL (130-400); RBC Distribution Width 17.3 % (11.5-14.5); Red Blood Cell (RBC) Count 2.26 mill/uL (4.20-5.40)
[2021-12-15 06:20] LABS: ALT (SGPT) Less than 7 U/L (8-55); AST (SGOT) 11 U/L (5-34); Albumin 2.4 g/dL (3.4-4.8); Alkaline Phosphatase 216 U/L (40-110); Anion Gap 10 mmol/L (10-20); BUN (Urea Nitrogen) 7 mg/dL (9.8-20.1); Bilirubin, Total 1.6 mg/dL (0.2-1.2); Calc. Creatinine Clearance 129 mL/min (70-130); Calcium 7.9 mg/dL (7.8-10.44); Carbon Dioxide 25 mmol/L (23-31); Chloride 104 mmol/L (98-107); Estimated GFR 100; Globulin 2.7 g/dL (2.4-3.5); Glucose 106 mg/dL (80-115); Magnesium 1.6 mg/dL (1.6-2.6); Potassium 3.7 mmol/L (3.5-5.1); Protein, Total 5.1 g/dL (5.8-8.1); Sodium 135 mmol/L (136-145)
[2021-12-15] MEDS: PHOS-NAK 1 PKT PACK PO SCH ×2 (07:42→12:06)
[2021-12-15] MEDS: Gabapentin 300 MG CAP PO SCH ×2 (07:45→20:42)
[2021-12-15] MEDS: Pantoprazole 40 MG VIAL IVP SCH (07:45)
[2021-12-15] MEDS ORDERED: Magnesium 2 GM/50 ML(in water) 2 GM in Premix Bag 1 BAG IVPB SCH (08:00)
[2021-12-15 09:02] LABS: #Lymphocytes 0.3 thou/uL (1.20-3.40); #Monocytes 0.1 thou/uL (0.11-0.59); #Neutrophils 0.5 thou/uL (1.40-6.50); %Basophils 1.4 % (0.0-1.0); %Eosinophils 0.8 % (0.0-10.0); %Lymphocytes 33.7 % (21.0-51.0); %Monocytes 5.9 % (0.0-10.0); %Neutrophils 58.2 % (42.0-75.0); Hemoglobin 7.2 g/dL (12.0-16.0); Mean Corpuscular HGB CONC 32.6 g/dL (32.0-36.0); Mean Corpuscular Hemoglobin 31.7 pg (27.0-31.0); Mean Corpuscular Volume 97.2 fL (78.0-98.0); Platelet Count 17 thou/uL (130-400); RBC Distribution Width 17.1 % (11.5-14.5); Red Blood Cell (RBC) Count 2.28 mill/uL (4.20-5.40); White Blood Cell (WBC) Count 0.9 thou/uL (4.8-10.8)
[2021-12-15 09:08] LABS: ALT (SGPT) Less than 7 U/L (8-55); AST (SGOT) 10 U/L (5-34); Albumin 2.4 g/dL (3.4-4.8); Alkaline Phosphatase 223 U/L (40-110); Anion Gap 10 mmol/L (10-20); BUN (Urea Nitrogen) 7 mg/dL (9.8-20.1); Bilirubin, Total 1.6 mg/dL (0.2-1.2); Calc. Creatinine Clearance 113 mL/min (70-130); Carbon Dioxide 24 mmol/L (23-31); Chloride 103 mmol/L (98-107); Estimated GFR 94; Globulin 2.7 g/dL (2.4-3.5); Glucose 198 mg/dL (80-115); Potassium 3.4 mmol/L (3.5-5.1); Protein, Total 5.1 g/dL (5.8-8.1); Sodium 134 mmol/L (136-145)
[2021-12-15] MEDS ORDERED: Electrolyte Replacement Protocol FS PRN (09:30)
[2021-12-15] MEDS ORDERED: Potassium Chloride 20 MEQ TAB PO SCH (10:00)
[2021-12-15 11:28] LABS: INR-International Normal Ratio 1.1; Prothrombin Time 14.2 sec (12.0-14.7)
[2021-12-15 11:29] LABS: Fibrinogen 399 mg/dL (253-463)
[2021-12-15 11:30] LABS: PTT 37.2 sec (22.9-36.1)
[2021-12-15 11:32] LABS: D-Dimer Test 1.25 *mcg/mL (0.27-0.43)
[2021-12-15] MEDS: HYDROcodone/Acetaminophen 10/325 mg Tablet PO PRN ×2 (12:15→20:42)
[2021-12-15 12:21] LABS: Platelet Count 18 thou/uL (130-400)
[2021-12-16 05:47] LABS: Hemoglobin 7.8 g/dL (12.0-16.0); Mean Corpuscular HGB CONC 33.2 g/dL (32.0-36.0); Mean Corpuscular Hemoglobin 31.9 pg (27.0-31.0); Mean Corpuscular Volume 96.1 fL (78.0-98.0); Platelet Count 17 thou/uL (130-400); RBC Distribution Width 16.7 % (11.5-14.5); Red Blood Cell (RBC) Count 2.44 mill/uL (4.20-5.40); White Blood Cell (WBC) Count 1.1 thou/uL (4.8-10.8)
[2021-12-16 06:04] LABS: ALT (SGPT) Less than 7 U/L (8-55); AST (SGOT) 26 U/L (5-34); Albumin 2.7 g/dL (3.4-4.8); Alkaline Phosphatase 319 U/L (40-110); Anion Gap 9 mmol/L (10-20); BUN (Urea Nitrogen) 7 mg/dL (9.8-20.1); Calc. Creatinine Clearance 124 mL/min (70-130); Calcium 8.6 mg/dL (7.8-10.44); Carbon Dioxide 26 mmol/L (23-31); Chloride 104 mmol/L (98-107); Estimated GFR 99; Globulin 3.6 g/dL (2.4-3.5); Glucose 146 mg/dL (80-115); Magnesium 1.8 mg/dL (1.6-2.6); Phosphorus 2.2 mg/dL (2.3-4.7); Potassium 4.9 mmol/L (3.5-5.1); Protein, Total 6.3 g/dL (5.8-8.1); Sodium 134 mmol/L (136-145)
[2021-12-16 06:10] LABS: Band 6 % (5-11); Hypochromia SLIGHT = 6-15 cells (100X) (0-5/hpf); Lymphocytes 34 % (21-51); MDiff Complete? YES; Monocytes 8 % (0-10); Neutrophil 52 % (42-75); Platelet Morphology Comment Appears Decreased
[2021-12-16] MEDS: HYDROcodone/Acetaminophen 10/325 mg Tablet PO PRN ×2 (07:14→19:50)
[2021-12-16] MEDS ORDERED: Magnesium 2 GM/50 ML(in water) 2 GM in Premix Bag 1 BAG IVPB SCH (08:00)
[2021-12-16] MEDS: Pantoprazole 40 MG VIAL IVP SCH (09:17)
[2021-12-16] MEDS: Gabapentin 300 MG CAP PO SCH ×2 (09:17→20:53)
[2021-12-16 10:03] LABS: ALT (SGPT) Less than 7 U/L (8-55); AST (SGOT) 16 U/L (5-34); Albumin 2.5 g/dL (3.4-4.8); Alkaline Phosphatase 283 U/L (40-110); Anion Gap 12 mmol/L (10-20); BUN (Urea Nitrogen) 6 mg/dL (9.8-20.1); Bilirubin, Total 1.3 mg/dL (0.2-1.2); Calc. Creatinine Clearance 118 mL/min (70-130); Carbon Dioxide 22 mmol/L (23-31); Chloride 103 mmol/L (98-107); Estimated GFR 97; Globulin 2.6 g/dL (2.4-3.5); Glucose 176 mg/dL (80-115); Potassium 3.6 mmol/L (3.5-5.1); Protein, Total 5.1 g/dL (5.8-8.1); Sodium 133 mmol/L (136-145)
[2021-12-16 10:05] LABS: #Lymphocytes 0.3 thou/uL (1.20-3.40); #Monocytes 0.1 thou/uL (0.11-0.59); #Neutrophils 0.4 thou/uL (1.40-6.50); %Eosinophils 1.1 % (0.0-10.0); %Lymphocytes 42.8 % (21.0-51.0); %Monocytes 5.8 % (0.0-10.0); %Neutrophils 50.3 % (42.0-75.0); Hemoglobin 6.8 g/dL (12.0-16.0); Mean Corpuscular HGB CONC 32.4 g/dL (32.0-36.0); Mean Corpuscular Hemoglobin 31.6 pg (27.0-31.0); Mean Corpuscular Volume 97.6 fL (78.0-98.0); Platelet Count 14 thou/uL (130-400); RBC Distribution Width 16.8 % (11.5-14.5); Red Blood Cell (RBC) Count 2.14 mill/uL (4.20-5.40); White Blood Cell (WBC) Count 0.8 thou/uL (4.8-10.8)
[2021-12-16] MEDS: Ondansetron PF 4 MG/2 ML Vial IVP PRN ×2 (10:32→19:50)
[2021-12-16] MEDS ORDERED: Acetaminophen 325 MG TAB PO SCH (13:45)
[2021-12-16 20:48] LABS: Hemoglobin 7.5 g/dL (12.0-16.0); Platelet Count 12 thou/uL (130-400)
[2021-12-17] MEDS: HYDROcodone/Acetaminophen 10/325 mg Tablet PO PRN ×4 (00:14→20:28)
[2021-12-17 05:26] LABS: ALT (SGPT) Less than 7 U/L (8-55); AST (SGOT) 14 U/L (5-34); Albumin 2.4 g/dL (3.4-4.8); Alkaline Phosphatase 288 U/L (40-110); Anion Gap 9 mmol/L (10-20); BUN (Urea Nitrogen) 8 mg/dL (9.8-20.1); Bilirubin, Total 1.5 mg/dL (0.2-1.2); Calc. Creatinine Clearance 124 mL/min (70-130); Calcium 8.3 mg/dL (7.8-10.44); Carbon Dioxide 26 mmol/L (23-31); Chloride 104 mmol/L (98-107); Estimated GFR 99; Globulin 2.7 g/dL (2.4-3.5); Glucose 107 mg/dL (80-115); Hemoglobin 7.2 g/dL (12.0-16.0); Magnesium 1.8 mg/dL (1.6-2.6); Mean Corpuscular HGB CONC 33.4 g/dL (32.0-36.0); Mean Corpuscular Hemoglobin 31.6 pg (27.0-31.0); Mean Corpuscular Volume 94.9 fL (78.0-98.0); Mean Platelet Volume 9.2 fL (7.4-10.4); Phosphorus 2.5 mg/dL (2.3-4.7); Platelet Count 11 thou/uL (130-400); Protein, Total 5.1 g/dL (5.8-8.1); RBC Distribution Width 16.4 % (11.5-14.5); Red Blood Cell (RBC) Count 2.26 mill/uL (4.20-5.40); Sodium 135 mmol/L (136-145); White Blood Cell (WBC) Count 1.1 thou/uL (4.8-10.8)
[2021-12-17 06:04] LABS: #Lymphocytes 0.5 thou/uL (1.20-3.40); #Neutrophils 0.6 thou/uL (1.40-6.50); %Eosinophils 0.3 % (0.0-10.0); %Monocytes 3.5 % (0.0-10.0); %Neutrophils 54.2 % (42.0-75.0); Platelet Morphology Comment Appears Decreased; RBC Morphology Normal
[2021-12-17] MEDS ORDERED: Magnesium 2 GM/50 ML(in water) 2 GM in Premix Bag 1 BAG IVPB SCH (08:00)
[2021-12-17 09:22] LABS: #Lymphocytes 0.3 thou/uL (1.20-3.40); #Neutrophils 0.7 thou/uL (1.40-6.50); %Lymphocytes 32.5 % (21.0-51.0); %Monocytes 3.2 % (0.0-10.0); %Neutrophils 63.3 % (42.0-75.0); Hemoglobin 8.5 g/dL (12.0-16.0); Mean Corpuscular HGB CONC 32.9 g/dL (32.0-36.0); Mean Corpuscular Hemoglobin 31.5 pg (27.0-31.0); Mean Corpuscular Volume 95.6 fL (78.0-98.0); Mean Platelet Volume 9.1 fL (7.4-10.4); Platelet Count 13 thou/uL (130-400); RBC Distribution Width 16.7 % (11.5-14.5); Red Blood Cell (RBC) Count 2.72 mill/uL (4.20-5.40)
[2021-12-17 09:30] LABS: ALT (SGPT) Less than 7 U/L (8-55); AST (SGOT) 15 U/L (5-34); Albumin 2.8 g/dL (3.4-4.8); Alkaline Phosphatase 343 U/L (40-110); Anion Gap 11 mmol/L (10-20); BUN (Urea Nitrogen) 9 mg/dL (9.8-20.1); Bilirubin, Total 2.1 mg/dL (0.2-1.2); Calc. Creatinine Clearance 109 mL/min (70-130); Calcium 8.6 mg/dL (7.8-10.44); Carbon Dioxide 24 mmol/L (23-31); Chloride 101 mmol/L (98-107); Estimated GFR 89; Globulin 3.4 g/dL (2.4-3.5); Glucose 192 mg/dL (80-115); Protein, Total 6.2 g/dL (5.8-8.1); Sodium 132 mmol/L (136-145)
[2021-12-17] MEDS: Gabapentin 300 MG CAP PO SCH ×2 (10:31→20:27)
[2021-12-17] MEDS: Pantoprazole 40 MG VIAL IVP SCH (10:31)
[2021-12-17 18:34] LABS: #Lymphocytes 0.5 thou/uL (1.20-3.40); #Monocytes 0.1 thou/uL (0.11-0.59); #Neutrophils 0.6 thou/uL (1.40-6.50); %Lymphocytes 43.3 % (21.0-51.0); %Monocytes 3.8 % (0.0-10.0); %Neutrophils 51.9 % (42.0-75.0); Hemoglobin 8.1 g/dL (12.0-16.0); Mean Corpuscular HGB CONC 33.6 g/dL (32.0-36.0); Mean Corpuscular Hemoglobin 31.4 pg (27.0-31.0); Mean Corpuscular Volume 93.5 fL (78.0-98.0); Mean Platelet Volume 10.4 fL (7.4-10.4); Platelet Count 11 thou/uL (130-400); RBC Distribution Width 16.3 % (11.5-14.5); Red Blood Cell (RBC) Count 2.59 mill/uL (4.20-5.40); White Blood Cell (WBC) Count 1.2 thou/uL (4.8-10.8)
[2021-12-18] MEDS: HYDROcodone/Acetaminophen 10/325 mg Tablet PO PRN ×3 (01:02→21:18)
[2021-12-18 01:30] LABS: Platelet Count 10 thou/uL (130-400)
[2021-12-18 06:46] LABS: #Lymphocytes 0.4 thou/uL (1.20-3.40); #Neutrophils 0.4 thou/uL (1.40-6.50); %Eosinophils 1.3 % (0.0-10.0); %Lymphocytes 46.7 % (21.0-51.0); %Monocytes 4.9 % (0.0-10.0); %Neutrophils 47.1 % (42.0-75.0); Mean Corpuscular Hemoglobin 32.1 pg (27.0-31.0); Mean Corpuscular Volume 94.6 fL (78.0-98.0); Mean Platelet Volume 11.6 fL (7.4-10.4); Platelet Count 8 thou/uL (130-400); RBC Distribution Width 16.3 % (11.5-14.5); Red Blood Cell (RBC) Count 2.17 mill/uL (4.20-5.40); White Blood Cell (WBC) Count 0.8 thou/uL (4.8-10.8)
[2021-12-18 07:27] LABS: ALT (SGPT) Less than 7 U/L (8-55); AST (SGOT) 13 U/L (5-34); Albumin 2.5 g/dL (3.4-4.8); Alkaline Phosphatase 309 U/L (40-110); Anion Gap 8 mmol/L (10-20); BUN (Urea Nitrogen) 8 mg/dL (9.8-20.1); Bilirubin, Total 1.3 mg/dL (0.2-1.2); Calc. Creatinine Clearance 124 mL/min (70-130); Calcium 8.1 mg/dL (7.8-10.44); Carbon Dioxide 26 mmol/L (23-31); Chloride 102 mmol/L (98-107); Estimated GFR 99; Globulin 2.6 g/dL (2.4-3.5); Glucose 115 mg/dL (80-115); Potassium 3.9 mmol/L (3.5-5.1); Protein, Total 5.1 g/dL (5.8-8.1); Sodium 132 mmol/L (136-145)
[2021-12-18] MEDS: Pantoprazole 40 MG VIAL IVP SCH (08:34)
[2021-12-18] MEDS: Gabapentin 300 MG CAP PO SCH ×2 (08:34→21:17)
[2021-12-18] MEDS ORDERED: PEGFILGRASTIM-JMDB 6 MG/0.6 ML SYRINGE SQ SCH (11:45)
[2021-12-18 18:26] LABS: #Lymphocytes 0.4 thou/uL (1.20-3.40); #Neutrophils 0.9 thou/uL (1.40-6.50); %Basophils 0.3 % (0.0-1.0); %Eosinophils 0.3 % (0.0-10.0); %Lymphocytes 32.5 % (21.0-51.0); %Monocytes 0.7 % (0.0-10.0); %Neutrophils 66.3 % (42.0-75.0); Hemoglobin 6.8 g/dL (12.0-16.0); Mean Corpuscular HGB CONC 33.7 g/dL (32.0-36.0); Mean Corpuscular Hemoglobin 31.8 pg (27.0-31.0); Mean Corpuscular Volume 94.4 fL (78.0-98.0); Mean Platelet Volume 9.5 fL (7.4-10.4); Platelet Count 23 thou/uL (130-400); RBC Distribution Width 16.2 % (11.5-14.5); Red Blood Cell (RBC) Count 2.15 mill/uL (4.20-5.40); White Blood Cell (WBC) Count 1.3 thou/uL (4.8-10.8)
[2021-12-19 07:40] LABS: #Lymphocytes 0.4 thou/uL (1.20-3.40); #Neutrophils 1.5 thou/uL (1.40-6.50); %Eosinophils 0.6 % (0.0-10.0); %Lymphocytes 21.5 % (21.0-51.0); %Monocytes 2.2 % (0.0-10.0); %Neutrophils 75.7 % (42.0-75.0); Hemoglobin 8.1 g/dL (12.0-16.0); Mean Corpuscular HGB CONC 34.5 g/dL (32.0-36.0); Mean Corpuscular Hemoglobin 32.2 pg (27.0-31.0); Mean Corpuscular Volume 93.4 fL (78.0-98.0); Mean Platelet Volume 9.8 fL (7.4-10.4); Platelet Count 24 thou/uL (130-400); RBC Distribution Width 15.5 % (11.5-14.5); Red Blood Cell (RBC) Count 2.52 mill/uL (4.20-5.40)
[2021-12-19 08:44] VITALS: BP 99/56; TEMP 97.3
[2021-12-19] MEDS: Gabapentin 300 MG CAP PO SCH (09:25)
[2021-12-19] MEDS: HYDROcodone/Acetaminophen 10/325 mg Tablet PO PRN (09:27)
[2021-12-19] MEDS: Pantoprazole 40 MG VIAL IVP SCH (09:28)
== END 2021-12-19 17:50 | disposition home or self-care (01) | DRG 808 ==
LOC: ERS 09:38 → ERHOLD 13:29 → 2NO 16:56 → MSONC 12-06 18:22
PROVIDERS: ADMIT Family Medicine; ATTEND Family Medicine
PROC: 30233N1 Transfusion of Nonautologous Red Blood Cells into Peripheral Vein, Percutaneous Approach (ICD-10-PCS; principal; 2021-12-05)
PROC: 6A551Z2 Pheresis of Platelets, Multiple (ICD-10-PCS; 2021-12-05)
PROC: 3E03329 Introduction of Other Anti-infective into Peripheral Vein, Percutaneous Approach (ICD-10-PCS; 2021-12-05)
PROC: 07DR3ZX Extraction of Iliac Bone Marrow, Percutaneous Approach, Diagnostic (ICD-10-PCS; 2021-12-13)
DX: D61.9 Aplastic anemia, unspecified (principal); Z20.822 Contact with and (suspected) exposure to COVID-19; A41.51 Sepsis due to Escherichia coli [E. coli]; D65 Disseminated intravascular coagulation [defibrination syndrome]; N39.0 Urinary tract infection, site not specified; E87.20 Acidosis, unspecified; R17 Unspecified jaundice; E87.1 Hypo-osmolality and hyponatremia; E46 Unspecified protein-calorie malnutrition; E80.6 Other disorders of bilirubin metabolism; E87.6 Hypokalemia; K80.20 Calculus of gallbladder without cholecystitis without obstruction; F32.A Depression, unspecified; M19.90 Unspecified osteoarthritis, unspecified site; E11.9 Type 2 diabetes mellitus without complications; I10 Essential (primary) hypertension; F17.210 Nicotine dependence, cigarettes, uncomplicated; F41.9 Anxiety disorder, unspecified; K64.9 Unspecified hemorrhoids; Z87.440 Personal history of urinary (tract) infections; Z88.6 Allergy status to analgesic agent; Z79.899 Other long term (current) drug therapy; Z98.890 Other specified postprocedural states; Z82.49 Family history of ischemic heart disease and other diseases of the circulatory system; Z68.36 Body mass index [BMI] 36.0-36.9, adult; Z85.72 Personal history of non-Hodgkin lymphomas; Z92.3 Personal history of irradiation; Z92.21 Personal history of antineoplastic chemotherapy
CPT/HCPCS: 36415; 36416; 36430; 38222; 51701; 71045; 74177; 76705; 77012; 80048; 80053; 80074; 80202; 81003; 81015; 82247; 82274; 82607; 83010; 83036; 83605; 83615; 83690; 83735; 83930; 83935; 84100; 84300; 84484; 85025; 85046; 85049; 85060; 85097; 85300; 85362; 85379; 85384; 85610; 85730; 86850; 86900; 86901; 87040; 87077; 87086; 87149; 87186; 87324; 87449; 87505; 87811; 88184; 88185; 88305; 88313; 88341; 88342; 93005; 94760; 96361; 96374; 96375; C9113; J0692; J0696; J1642; J2001; J2250; J2270; J2405; J2543; J3010; J3370; J3475; J3490; J7050; P9016; P9035; Q5108; Q9967; U0003; U0005

== ENCOUNTER 2021-12-21 08:59 | Day surgery (SDC) | payer BC ==
[~2021-12-21 08:59] MED LIST changes: +Acetaminophen 500 MG TAB PO SCH; -Iopamidol-370 76% 500 ML 1 ML ONE; +diphenhydrAMINE 25 MG CAP PO SCH
[2021-12-21] MEDS ORDERED: Acetaminophen 500 MG TAB ONE (09:42)
[2021-12-21] MEDS ORDERED: diphenhydrAMINE 25 MG CAP ONE (09:42)
[2021-12-21 14:09] VITALS: BP 123/57; TEMP 97.7
== END 2021-12-21 14:10 | disposition home or self-care (01) ==
LOC: ONC/OP 08:59
PROVIDERS: ATTEND Internal Medicine Hematology & Oncology
PROC: 30233R1 Transfusion of Nonautologous Platelets into Peripheral Vein, Percutaneous Approach (ICD-10-PCS; principal; 2021-12-21)
PROC: 30233N1 Transfusion of Nonautologous Red Blood Cells into Peripheral Vein, Percutaneous Approach (ICD-10-PCS; principal; 2021-12-21)
DX: D64.9 Anemia, unspecified (principal); D69.6 Thrombocytopenia, unspecified
CPT/HCPCS: 36430; 86850; 86900; 86901; J1642; P9016; P9035

== ENCOUNTER 2021-12-27 08:56 | Day surgery (SDC) | payer SELFPAY ==
[~2021-12-27 08:56] MED LIST changes: +Acetaminophen 500 MG TAB ONE; +diphenhydrAMINE 25 MG CAP ONE
[2021-12-27 13:21] VITALS: BP 137/63; TEMP 98.2
== END 2021-12-27 13:37 | disposition home or self-care (01) ==
LOC: ONC/OP 08:56
PROVIDERS: ATTEND Internal Medicine Hematology & Oncology
PROC: 30233N1 Transfusion of Nonautologous Red Blood Cells into Peripheral Vein, Percutaneous Approach (ICD-10-PCS; principal; 2021-12-27)
PROC: 30233R1 Transfusion of Nonautologous Platelets into Peripheral Vein, Percutaneous Approach (ICD-10-PCS; principal; 2021-12-27)
DX: D64.9 Anemia, unspecified (principal); D69.6 Thrombocytopenia, unspecified
CPT/HCPCS: 36430; 86850; 86900; 86901; P9016; P9035

== ENCOUNTER 2021-12-30 10:18 | Day surgery (SDC) | payer BC ==
[2021-12-30] MEDS ORDERED: Acetaminophen 500 MG TAB ONE (10:53)
[2021-12-30 16:07] VITALS: BP 117/58; TEMP 97.7
== END 2021-12-30 16:18 | disposition home or self-care (01) ==
LOC: ONC/OP 10:18
PROVIDERS: ATTEND Internal Medicine Hematology & Oncology
PROC: 30233N1 Transfusion of Nonautologous Red Blood Cells into Peripheral Vein, Percutaneous Approach (ICD-10-PCS; principal; 2021-12-30)
PROC: 30233R1 Transfusion of Nonautologous Platelets into Peripheral Vein, Percutaneous Approach (ICD-10-PCS; principal; 2021-12-30)
DX: D64.9 Anemia, unspecified (principal); D69.6 Thrombocytopenia, unspecified
CPT/HCPCS: 36430; 86850; 86900; 86901; J1642; P9016; P9035

== ENCOUNTER 2022-01-06 12:28 | Day surgery (SDC) | payer OTHER ==
[2022-01-06] MEDS ORDERED: Acetaminophen 500 MG TAB ONE (13:00)
[2022-01-06] MEDS ORDERED: Acetaminophen 500 MG TAB PO PRN (13:10)
[2022-01-06] MEDS ORDERED: diphenhydrAMINE 25 MG CAP PO PRN (13:11)
[2022-01-06 16:37] VITALS: BP 113/54; TEMP 98.3
== END 2022-01-06 16:37 | disposition home or self-care (01) ==
LOC: ONC/OP 12:28
PROVIDERS: ATTEND Internal Medicine Hematology & Oncology
PROC: 30233N1 Transfusion of Nonautologous Red Blood Cells into Peripheral Vein, Percutaneous Approach (ICD-10-PCS; principal; 2022-01-06)
DX: D64.9 Anemia, unspecified (principal); D69.6 Thrombocytopenia, unspecified
CPT/HCPCS: 36430; 86850; 86900; 86901; J1642; P9016

== ENCOUNTER 2022-01-09 12:09 | Day surgery (SDC) | payer OTHER ==
[2022-01-09] MEDS ORDERED: diphenhydrAMINE 25 MG CAP PO SCH (12:30)
[2022-01-09] MEDS ORDERED: Acetaminophen 500 MG TAB PO SCH (12:30)
[2022-01-09] MEDS ORDERED: Ondansetron HCl/PF 10 MG in Sodium Chloride 0.9% 50 ML IVPB SCH (12:30)
[2022-01-09] MEDS ORDERED: Acetaminophen 500 MG TAB ONE (12:53)
[2022-01-09 16:13] VITALS: BP 140/65; TEMP 97.6
== END 2022-01-09 16:13 | disposition home or self-care (01) ==
LOC: ONC/OP 12:09
PROVIDERS: ATTEND Internal Medicine Hematology & Oncology
PROC: 30233N1 Transfusion of Nonautologous Red Blood Cells into Peripheral Vein, Percutaneous Approach (ICD-10-PCS; principal; 2022-01-09)
PROC: 30233R1 Transfusion of Nonautologous Platelets into Peripheral Vein, Percutaneous Approach (ICD-10-PCS; principal; 2022-01-09)
DX: D64.9 Anemia, unspecified (principal); D69.6 Thrombocytopenia, unspecified
CPT/HCPCS: 36430; 86850; 86900; 86901; J1642; P9016; P9035

== ENCOUNTER 2022-01-12 09:49 | Day surgery (SDC) | payer OTHER ==
[2022-01-12] MEDS ORDERED: diphenhydrAMINE 25 MG CAP ONE (10:53)
[2022-01-12] MEDS ORDERED: Acetaminophen 500 MG TAB ONE (10:53)
[2022-01-12 14:20] VITALS: BP 135/60; TEMP 97.9
== END 2022-01-12 14:24 | disposition home or self-care (01) ==
LOC: ONC/OP 09:49
PROVIDERS: ATTEND Internal Medicine Hematology & Oncology
PROC: 30233N1 Transfusion of Nonautologous Red Blood Cells into Peripheral Vein, Percutaneous Approach (ICD-10-PCS; principal; 2022-01-12)
PROC: 30233R1 Transfusion of Nonautologous Platelets into Peripheral Vein, Percutaneous Approach (ICD-10-PCS; principal; 2022-01-12)
DX: D64.9 Anemia, unspecified (principal); D69.6 Thrombocytopenia, unspecified
CPT/HCPCS: 36430; 86850; 86900; 86901; J1642; P9016; P9035

== ENCOUNTER 2022-01-16 10:26 | Day surgery (SDC) | payer OTHER ==
[2022-01-16] MEDS ORDERED: Ondansetron PF 4 MG/2 ML Vial IVP SCH (11:30)
[2022-01-16] MEDS ORDERED: diphenhydrAMINE 25 MG CAP PO SCH (11:30)
[2022-01-16] MEDS ORDERED: Acetaminophen 500 MG TAB PO SCH (11:30)
[2022-01-16] MEDS ORDERED: Acetaminophen 500 MG TAB ONE (11:42)
[2022-01-16] MEDS ORDERED: diphenhydrAMINE 25 MG CAP ONE (11:43)
[2022-01-16] MEDS ORDERED: Ondansetron PF 4 MG/2 ML Vial ONE ×3 (12:08)
[2022-01-16 15:40] VITALS: BP 133/63; TEMP 97.6
== END 2022-01-16 17:53 | disposition home or self-care (01) ==
LOC: ONC/OP 10:26
PROVIDERS: ATTEND Internal Medicine Hematology & Oncology
PROC: 30233R1 Transfusion of Nonautologous Platelets into Peripheral Vein, Percutaneous Approach (ICD-10-PCS; principal; 2022-01-16)
PROC: 30233N1 Transfusion of Nonautologous Red Blood Cells into Peripheral Vein, Percutaneous Approach (ICD-10-PCS; principal; 2022-01-16)
DX: D64.9 Anemia, unspecified (principal); D69.6 Thrombocytopenia, unspecified
CPT/HCPCS: 36430; 86850; 86900; 86901; 96374; J1642; J2405; P9016; P9035

== ENCOUNTER 2022-01-20 10:18 | Day surgery (SDC) | payer OTHER ==
[2022-01-20] MEDS ORDERED: Acetaminophen 500 MG TAB ONE (10:59)
[2022-01-20 15:38] VITALS: BP 128/61; TEMP 98.5
== END 2022-01-20 15:39 | disposition home or self-care (01) ==
LOC: ONC/OP 10:18
PROVIDERS: ATTEND Internal Medicine Hematology & Oncology
PROC: 30233R1 Transfusion of Nonautologous Platelets into Peripheral Vein, Percutaneous Approach (ICD-10-PCS; principal; 2022-01-20)
PROC: 30233N1 Transfusion of Nonautologous Red Blood Cells into Peripheral Vein, Percutaneous Approach (ICD-10-PCS; principal; 2022-01-20)
DX: D64.9 Anemia, unspecified (principal); D69.6 Thrombocytopenia, unspecified
CPT/HCPCS: 36430; 86850; 86900; 86901; J1642; P9016; P9035

== ENCOUNTER 2022-01-23 09:34 | Day surgery (SDC) | payer OTHER ==
[2022-01-23] MEDS ORDERED: Acetaminophen 500 MG TAB ONE (10:39)
[2022-01-23 16:49] VITALS: BP 109/52; TEMP 97.4
== END 2022-01-23 14:45 | disposition home or self-care (01) ==
LOC: ONC/OP 09:34
PROVIDERS: ATTEND Internal Medicine Medical Oncology
DX: D64.9 Anemia, unspecified (principal); D69.6 Thrombocytopenia, unspecified
CPT/HCPCS: 36430; 86850; 86900; 86901; J1642; P9016; P9035

== ENCOUNTER 2022-01-25 08:59 | Day surgery (SDC) | payer BC ==
[2022-01-25] MEDS ORDERED: Ondansetron 2MG/ML MDV 10 MG in Sodium Chloride 0.9% 50 ML IVPB SCH (10:30)
[2022-01-25] MEDS ORDERED: Acetaminophen 500 MG TAB ONE (10:31)
[2022-01-25 11:17] VITALS: TEMP 98.3
[2022-01-25 12:29] LABS: Ref Lab Test Ordered IL2; Reference Lab Name LABCORP
[2022-01-25 13:28] VITALS: BP 114/74
== END 2022-01-25 13:45 | disposition home or self-care (01) ==
LOC: ONC/OP 08:59
PROVIDERS: ATTEND Internal Medicine Medical Oncology
PROC: 30233N1 Transfusion of Nonautologous Red Blood Cells into Peripheral Vein, Percutaneous Approach (ICD-10-PCS; principal; 2022-01-25)
DX: C83.33 Diffuse large B-cell lymphoma, intra-abdominal lymph nodes (principal); D63.0 Anemia in neoplastic disease; D69.6 Thrombocytopenia, unspecified
CPT/HCPCS: 36430; 85384; 86850; 86900; 86901; 96374; J1642; J2405; P9016

== ENCOUNTER 2022-02-02 09:53 | Day surgery (SDC) | payer BC ==
[2022-02-02] MEDS ORDERED: Acetaminophen 500 MG TAB ONE (10:44)
[2022-02-02 14:05] VITALS: BP 136/61; TEMP 98.2
== END 2022-02-02 14:07 | disposition home or self-care (01) ==
LOC: ONC/OP 09:53
PROVIDERS: ATTEND Internal Medicine Hematology & Oncology
PROC: 30233N1 Transfusion of Nonautologous Red Blood Cells into Peripheral Vein, Percutaneous Approach (ICD-10-PCS; principal; 2022-02-02)
PROC: 30233R1 Transfusion of Nonautologous Platelets into Peripheral Vein, Percutaneous Approach (ICD-10-PCS; principal; 2022-02-02)
DX: D64.9 Anemia, unspecified (principal); D69.6 Thrombocytopenia, unspecified
CPT/HCPCS: 36430; 86850; 86900; 86901; J1642; P9016; P9035

== ENCOUNTER 2022-02-06 12:22 | Day surgery (SDC) | payer OTHER ==
[2022-02-06] MEDS ORDERED: Acetaminophen 500 MG TAB PO SCH (13:00)
[2022-02-06] MEDS ORDERED: diphenhydrAMINE 25 MG CAP PO SCH (13:00)
[2022-02-06] MEDS ORDERED: Ondansetron 2MG/ML MDV 10 MG in Sodium Chloride 0.9% 50 ML IVPB SCH (13:15)
[2022-02-06] MEDS ORDERED: Acetaminophen 500 MG TAB ONE (13:42)
[2022-02-06 17:39] VITALS: BP 133/61; TEMP 97.7
== END 2022-02-06 17:38 | disposition home or self-care (01) ==
LOC: ONC/OP 12:22
PROVIDERS: ATTEND Internal Medicine Hematology & Oncology
PROC: 30233R1 Transfusion of Nonautologous Platelets into Peripheral Vein, Percutaneous Approach (ICD-10-PCS; principal; 2022-02-06)
PROC: 30233N1 Transfusion of Nonautologous Red Blood Cells into Peripheral Vein, Percutaneous Approach (ICD-10-PCS; principal; 2022-02-06)
DX: D64.9 Anemia, unspecified (principal); D69.6 Thrombocytopenia, unspecified
CPT/HCPCS: 36430; 80053; 82248; 83615; 84100; 84550; 86850; 86900; 86901; 96365; J1642; J2405; P9016; P9035

== ENCOUNTER 2022-02-09 11:50 | Day surgery (SDC) | payer OTHER ==
[2022-02-09] MEDS ORDERED: diphenhydrAMINE 25 MG CAP PO SCH (12:15)
[2022-02-09] MEDS ORDERED: Acetaminophen 500 MG TAB PO SCH (12:15)
[2022-02-09] MEDS ORDERED: Acetaminophen 500 MG TAB ONE (13:01)
[2022-02-09 13:51] VITALS: TEMP 97.9
[2022-02-09 13:54] VITALS: BP 125/58
== END 2022-02-09 14:00 | disposition home or self-care (01) ==
LOC: ONC/OP 11:50
PROVIDERS: ATTEND Internal Medicine Hematology & Oncology
PROC: 30233R1 Transfusion of Nonautologous Platelets into Peripheral Vein, Percutaneous Approach (ICD-10-PCS; principal; 2022-02-09)
DX: D69.6 Thrombocytopenia, unspecified (principal); D64.9 Anemia, unspecified
CPT/HCPCS: 36430; 86850; 86900; 86901; J1642; P9035

== ENCOUNTER 2022-02-13 11:17 | Day surgery (SDC) | payer OTHER ==
[2022-02-13] MEDS ORDERED: Ondansetron 2MG/ML MDV 10 MG in Sodium Chloride 0.9% 50 ML IVPB PRN (11:37)
[2022-02-13] MEDS ORDERED: diphenhydrAMINE 25 MG CAP PO SCH (11:45)
[2022-02-13] MEDS ORDERED: Acetaminophen 500 MG TAB PO SCH (11:45)
[2022-02-13] MEDS ORDERED: Acetaminophen 500 MG TAB ONE (12:24)
[2022-02-13 15:30] VITALS: TEMP 97.6
[2022-02-13 15:39] VITALS: BP 106/52
== END 2022-02-13 15:41 | disposition home or self-care (01) ==
LOC: ONC/OP 11:17
PROVIDERS: ATTEND Internal Medicine Hematology & Oncology
PROC: 30233R1 Transfusion of Nonautologous Platelets into Peripheral Vein, Percutaneous Approach (ICD-10-PCS; principal; 2022-02-13)
DX: D69.6 Thrombocytopenia, unspecified (principal); D64.9 Anemia, unspecified
CPT/HCPCS: 36430; 86850; 86900; 86901; J1642; P9035

== ENCOUNTER 2022-02-16 09:45 | Day surgery (SDC) | payer OTHER ==
[2022-02-16] MEDS ORDERED: Acetaminophen 500 MG TAB ONE (10:58)
[2022-02-16 15:49] VITALS: BP 154/68; TEMP 97.6
== END 2022-02-16 15:49 | disposition home or self-care (01) ==
LOC: ONC/OP 09:45
PROVIDERS: ATTEND Internal Medicine Hematology & Oncology
PROC: 30233N1 Transfusion of Nonautologous Red Blood Cells into Peripheral Vein, Percutaneous Approach (ICD-10-PCS; principal; 2022-02-16)
DX: D64.9 Anemia, unspecified (principal); D69.6 Thrombocytopenia, unspecified
CPT/HCPCS: 36430; 83036; 83520; 86200; 86850; 86900; 86901; J1642; P9016

== ENCOUNTER 2022-02-20 09:37 | Day surgery (SDC) | payer OTHER ==
[2022-02-20] MEDS ORDERED: Acetaminophen 500 MG TAB ONE (10:31)
[2022-02-20 13:52] VITALS: TEMP 97.9
[2022-02-20 13:53] VITALS: BP 131/61
== END 2022-02-20 15:04 | disposition home or self-care (01) ==
LOC: ONC/OP 09:37
PROVIDERS: ATTEND Internal Medicine Medical Oncology
PROC: 30233R1 Transfusion of Nonautologous Platelets into Peripheral Vein, Percutaneous Approach (ICD-10-PCS; principal; 2022-02-20)
DX: D69.6 Thrombocytopenia, unspecified (principal); D64.9 Anemia, unspecified
CPT/HCPCS: 36430; 86850; 86900; 86901; J1642; P9035

== ENCOUNTER 2022-02-24 09:04 | Day surgery (SDC) | payer OTHER ==
[2022-02-24] MEDS ORDERED: Acetaminophen 500 MG TAB ONE (09:33)
[2022-02-24 11:39] VITALS: BP 115/56; TEMP 98
== END 2022-02-24 11:49 | disposition home or self-care (01) ==
LOC: ONC/OP 09:04
PROVIDERS: ATTEND Internal Medicine Hematology & Oncology
PROC: 30233R1 Transfusion of Nonautologous Platelets into Peripheral Vein, Percutaneous Approach (ICD-10-PCS; principal; 2022-02-24)
DX: D69.6 Thrombocytopenia, unspecified (principal); D64.9 Anemia, unspecified
CPT/HCPCS: 36430; 86850; 86900; 86901; J1642; P9035

== ENCOUNTER 2022-02-28 09:36 | Day surgery (SDC) | payer OTHER ==
[2022-02-28] MEDS ORDERED: Acetaminophen 500 MG TAB ONE (11:11)
[2022-02-28] MEDS ORDERED: Ondansetron PF 4 MG/2 ML Vial IVP PRN (11:21)
[2022-02-28] MEDS ORDERED: diphenhydrAMINE 25 MG CAP PO SCH (11:30)
[2022-02-28] MEDS ORDERED: Acetaminophen 500 MG TAB PO SCH (11:30)
[2022-02-28] MEDS ORDERED: Ondansetron HCl/PF 10 MG in Sodium Chloride 0.9% 50 ML IVPB SCH (11:30)
[2022-02-28] MEDS ORDERED: Ondansetron HCl/PF 10 MG in Sodium Chloride 0.9% 50 ML IVPB PRN (11:30)
[2022-02-28 19:04] VITALS: BP 133/70; TEMP 97.7
== END 2022-02-28 18:15 | disposition home or self-care (01) ==
LOC: ONC/OP 09:36
PROVIDERS: ATTEND Internal Medicine Hematology & Oncology
PROC: 30233N1 Transfusion of Nonautologous Red Blood Cells into Peripheral Vein, Percutaneous Approach (ICD-10-PCS; principal; 2022-02-28)
PROC: 30233R1 Transfusion of Nonautologous Platelets into Peripheral Vein, Percutaneous Approach (ICD-10-PCS; principal; 2022-02-28)
DX: D64.9 Anemia, unspecified (principal); D69.6 Thrombocytopenia, unspecified
CPT/HCPCS: 36430; 86850; 86900; 86901; J1642; P9016; P9035

== ENCOUNTER 2022-03-07 09:19 | Day surgery (SDC) | payer OTHER ==
[2022-03-07] MEDS ORDERED: Acetaminophen 500 MG TAB ONE (10:04)
[2022-03-07] MEDS ORDERED: diphenhydrAMINE 25 MG CAP PO SCH (10:15)
[2022-03-07] MEDS ORDERED: Acetaminophen 500 MG TAB PO SCH (10:15)
[2022-03-07 17:49] VITALS: BP 132/58; TEMP 98.2
== END 2022-03-07 17:55 | disposition home or self-care (01) ==
LOC: ONC/OP 09:19
PROVIDERS: ATTEND Internal Medicine Hematology & Oncology
PROC: 30233R1 Transfusion of Nonautologous Platelets into Peripheral Vein, Percutaneous Approach (ICD-10-PCS; principal; 2022-03-07)
PROC: 30233N1 Transfusion of Nonautologous Red Blood Cells into Peripheral Vein, Percutaneous Approach (ICD-10-PCS; principal; 2022-03-07)
DX: D64.9 Anemia, unspecified (principal); D69.6 Thrombocytopenia, unspecified
CPT/HCPCS: 36430; 86850; 86900; 86901; J1642; P9016; P9035

== ENCOUNTER 2022-03-13 08:44 | Day surgery (SDC) | payer OTHER ==
[2022-03-13] MEDS ORDERED: diphenhydrAMINE 25 MG CAP PO SCH (09:45)
[2022-03-13] MEDS ORDERED: Acetaminophen 500 MG TAB ONE (09:45)
[2022-03-13] MEDS ORDERED: Acetaminophen 500 MG TAB PO SCH (09:45)
[2022-03-13 10:03] VITALS: BP 145/65
[2022-03-13 14:36] VITALS: TEMP 98
== END 2022-03-13 17:37 | disposition home or self-care (01) ==
LOC: ONC/OP 08:44
PROVIDERS: ATTEND Internal Medicine Hematology & Oncology
PROC: 30233R1 Transfusion of Nonautologous Platelets into Peripheral Vein, Percutaneous Approach (ICD-10-PCS; principal; 2022-03-13)
PROC: 30233N1 Transfusion of Nonautologous Red Blood Cells into Peripheral Vein, Percutaneous Approach (ICD-10-PCS; principal; 2022-03-13)
DX: D64.9 Anemia, unspecified (principal); D69.6 Thrombocytopenia, unspecified
CPT/HCPCS: 36430; 86850; 86900; 86901; J1642; P9016; P9035

== ENCOUNTER 2022-03-16 10:04 | Day surgery (SDC) | payer OTHER ==
[2022-03-16] MEDS ORDERED: Acetaminophen 500 MG TAB ONE (10:50)
[2022-03-16 18:26] VITALS: TEMP 98.7
[2022-03-16 18:32] VITALS: BP 113/56
== END 2022-03-16 18:32 | disposition home or self-care (01) ==
LOC: ONC/OP 10:04
PROVIDERS: ATTEND Internal Medicine Hematology & Oncology
PROC: 30233N1 Transfusion of Nonautologous Red Blood Cells into Peripheral Vein, Percutaneous Approach (ICD-10-PCS; principal; 2022-03-16)
PROC: 30233R1 Transfusion of Nonautologous Platelets into Peripheral Vein, Percutaneous Approach (ICD-10-PCS; principal; 2022-03-16)
DX: D64.9 Anemia, unspecified (principal); D69.6 Thrombocytopenia, unspecified
CPT/HCPCS: 36430; 86850; 86900; 86901; J1642; P9016; P9035

== ENCOUNTER 2022-03-20 12:50 | Day surgery (SDC) | payer OTHER ==
[2022-03-20 16:53] VITALS: TEMP 97.7
[2022-03-20 16:57] VITALS: BP 131/63
== END 2022-03-20 17:00 | disposition home or self-care (01) ==
LOC: ONC/OP 12:50
PROVIDERS: ATTEND Internal Medicine
PROC: 30233R1 Transfusion of Nonautologous Platelets into Peripheral Vein, Percutaneous Approach (ICD-10-PCS; principal; 2022-03-20)
DX: D69.6 Thrombocytopenia, unspecified (principal); D64.9 Anemia, unspecified
CPT/HCPCS: 36430; 86850; 86900; 86901; J1642; P9035

== ENCOUNTER 2022-03-23 08:55 | Day surgery (SDC) | payer OTHER ==
[2022-03-23] MEDS ORDERED: diphenhydrAMINE 25 MG CAP PO SCH (09:30)
[2022-03-23] MEDS ORDERED: Acetaminophen 500 MG TAB PO SCH (09:30)
[2022-03-23] MEDS ORDERED: Acetaminophen 500 MG TAB ONE (10:11)
[2022-03-23 12:03] VITALS: TEMP 97.9
[2022-03-23 12:07] VITALS: BP 141/65
== END 2022-03-23 12:21 | disposition home or self-care (01) ==
LOC: ONC/OP 08:55
PROVIDERS: ATTEND Internal Medicine Hematology & Oncology
PROC: 30233R1 Transfusion of Nonautologous Platelets into Peripheral Vein, Percutaneous Approach (ICD-10-PCS; principal; 2022-03-23)
DX: D69.6 Thrombocytopenia, unspecified (principal); D64.9 Anemia, unspecified
CPT/HCPCS: 36430; 86850; 86900; 86901; J1642; P9035

== ENCOUNTER 2022-03-27 09:56 | Day surgery (SDC) | payer OTHER ==
[2022-03-27] MEDS ORDERED: Acetaminophen 500 MG TAB ONE (10:58)
[2022-03-27 12:48] VITALS: TEMP 97.1
[2022-03-27 13:37] VITALS: BP 109/51
== END 2022-03-27 13:39 | disposition home or self-care (01) ==
LOC: ONC/OP 09:56
PROVIDERS: ATTEND Internal Medicine Hematology & Oncology
PROC: 30233R1 Transfusion of Nonautologous Platelets into Peripheral Vein, Percutaneous Approach (ICD-10-PCS; principal; 2022-03-27)
DX: D69.6 Thrombocytopenia, unspecified (principal); D64.9 Anemia, unspecified
CPT/HCPCS: 36430; 86850; 86900; 86901; J1642; P9035

== ENCOUNTER 2022-03-30 09:30 | Day surgery (SDC) | payer OTHER ==
[2022-03-30 16:37] VITALS: BP 139/77; TEMP 97.4
== END 2022-03-30 16:40 | disposition home or self-care (01) ==
LOC: ONC/OP 09:30
PROVIDERS: ATTEND Internal Medicine Hematology & Oncology
PROC: 30233N1 Transfusion of Nonautologous Red Blood Cells into Peripheral Vein, Percutaneous Approach (ICD-10-PCS; principal; 2022-03-30)
PROC: 30233R1 Transfusion of Nonautologous Platelets into Peripheral Vein, Percutaneous Approach (ICD-10-PCS; principal; 2022-03-30)
DX: D64.9 Anemia, unspecified (principal); D69.6 Thrombocytopenia, unspecified
CPT/HCPCS: 36430; 86850; 86900; 86901; P9016; P9035

== ENCOUNTER 2022-04-02 18:49 | Inpatient (IN) | payer OTHER ==
[2022-04-02 20:42] LABS: Mean Corpuscular HGB CONC 34.8 g/dL (32.0-36.0); Mean Corpuscular Volume 86.2 fl (78.0-98.0); Mean Platelet Volume 14.2 fL (7.4-10.4); Platelet Count 5 10x3/uL (130-400); RBC Distribution Width 12.4 % (11.5-14.5); Red Blood Cell (RBC) Count 2.67 mill/uL (4.20-5.40); Reflex for Review?? NO; White Blood Cell (WBC) Count 2.1 10x3/uL (4.8-10.8)
[2022-04-02 21:00] LABS: Band 19 % (5-11); Lymphocytes 6 % (21-51); MDiff Complete? YES; Monocytes 2 % (0-10); Myelocyte 2 % (0-0); Neutrophil 70 % (42-75); Platelet Morphology Comment Appears Decreased; Polychromasia SLIGHT = 2-3 cells (100X) (0-2/hpf); Reactive Lymphocytes 1 % (0-10)
[2022-04-02 22:03] LABS: ALT (SGPT) 9 U/L (8-55); AST (SGOT) 6 U/L (5-34); Albumin 2.8 g/dL (3.4-4.8); Alkaline Phosphatase 143 U/L (40-110); Anion Gap 14 mmol/L (10-20); BUN (Urea Nitrogen) 20 mg/dL (9.8-20.1); Calc. Creatinine Clearance 0 mL/min (70-130); Calcium 7.8 mg/dL (7.8-10.44); Carbon Dioxide 25 mmol/L (23-31); Chloride 91 mmol/L (98-107); Estimated GFR 78; Globulin 2.6 g/dL (2.4-3.5); Potassium 3.9 mmol/L (3.5-5.1); Protein, Total 5.4 g/dL (5.8-8.1); Sodium 126 mmol/L (136-145)
[2022-04-02 22:06] LABS: Glucose 598 mg/dL (80-115)
[2022-04-02] MEDS ORDERED: Dextrose 50% Abboject 50 ML SYRINGE SLOW IVP PRN (23:16)
[2022-04-02] MEDS ORDERED: Dextrose 5% in Water 1,000 ML IV PRN (23:16)
[2022-04-02] MEDS ORDERED: HumaLOG 300 UNITS/3 ML VIAL SC PRN (23:16)
[2022-04-02 23:49] LABS: Magnesium 1.9 mg/dL (1.6-2.6)
[2022-04-03] MEDS: Sodium Chloride 0.9% 1,000 ML IV SCH ×3 (00:45→16:01)
[2022-04-03 02:45] VITALS: BMI 25.7
[2022-04-03 04:10] LABS: ALT (SGPT) 8 U/L (8-55); AST (SGOT) 5 U/L (5-34); Albumin 2.6 g/dL (3.4-4.8); Alkaline Phosphatase 127 U/L (40-110); Anion Gap 12 mmol/L (10-20); BUN (Urea Nitrogen) 17 mg/dL (9.8-20.1); Bilirubin, Total 1.5 mg/dL (0.2-1.2); Calc. Creatinine Clearance 93 mL/min (70-130); Calcium 7.8 mg/dL (7.8-10.44); Carbon Dioxide 24 mmol/L (23-31); Chloride 97 mmol/L (98-107); Estimated GFR 89; Globulin 2.3 g/dL (2.4-3.5); Magnesium 1.8 mg/dL (1.6-2.6); Potassium 4.2 mmol/L (3.5-5.1); Protein, Total 4.9 g/dL (5.8-8.1); Sodium 129 mmol/L (136-145)
[2022-04-03 04:38] LABS: Glucose 400 mg/dL (80-115)
[2022-04-03 04:48] LABS: Band 22 % (5-11); Eosinophils 2 % (0-10); Hemoglobin 7.3 g/dL (12.0-16.0); Lymphocytes 14 % (21-51); MDiff Complete? YES; Mean Corpuscular HGB CONC 34.5 g/dL (32.0-36.0); Mean Corpuscular Hemoglobin 29.3 pg (27.0-31.0); Mean Corpuscular Volume 84.8 fl (78.0-98.0); Mean Platelet Volume 15.8 fL (7.4-10.4); Monocytes 2 % (0-10); Myelocyte 6 % (0-0); Neutrophil 54 % (42-75); Platelet Count 5 10x3/uL (130-400); Platelet Morphology Comment Appears Decreased; RBC Distribution Width 12.3 % (11.5-14.5); Red Blood Cell (RBC) Count 2.49 mill/uL (4.20-5.40); White Blood Cell (WBC) Count 1.3 10x3/uL (4.8-10.8)
[2022-04-03] MEDS ORDERED: Insulin Regular 300 UNITS/3 ML VIAL IVP SCH (05:15)
[2022-04-03] MEDS: Folic Acid 1 MG TAB PO SCH (08:04)
[2022-04-03] MEDS: Gabapentin 300 MG CAP PO SCH ×3 (08:04→20:44)
[2022-04-03] MEDS: predniSONE 20 MG TAB PO SCH (08:04)
[2022-04-03] MEDS ORDERED: Insulin Glargine 30 UNITS/0.3 ML VIAL SC SCH (10:45)
[2022-04-03] MEDS: HumaLOG 300 UNITS/3 ML VIAL SC PRN ×3 (11:10→22:10)
[2022-04-03] MEDS ORDERED: HYDROcodone/Acetaminophen 10/325 mg Tablet PO PRN (15:35)
[2022-04-03] MEDS ORDERED: Sulfameth/Trimethoprim DS 800-160mg TAB PO SCH (21:00)
[2022-04-04] MEDS: Sodium Chloride 0.9% 1,000 ML IV SCH ×3 (03:48→15:57)
[2022-04-04 06:33] LABS: Hemoglobin 7.6 g/dL (12.0-16.0); Hemoglobin A1c 7.3 % (4.0-6.0); Mean Corpuscular Hemoglobin 31.5 pg (27.0-31.0); Mean Corpuscular Volume 87.5 fl (78.0-98.0); Mean Platelet Volume 9.1 fL (7.4-10.4); Platelet Count 19 10x3/uL (130-400); RBC Distribution Width 12.9 % (11.5-14.5); Red Blood Cell (RBC) Count 2.42 mill/uL (4.20-5.40); White Blood Cell (WBC) Count 0.8 10x3/uL (4.8-10.8)
[2022-04-04 06:50] LABS: ALT (SGPT) 9 U/L (8-55); AST (SGOT) 7 U/L (5-34); Albumin 2.5 g/dL (3.4-4.8); Alkaline Phosphatase 105 U/L (40-110); Anion Gap 11 mmol/L (10-20); BUN (Urea Nitrogen) 13 mg/dL (9.8-20.1); Bilirubin, Total 2.9 mg/dL (0.2-1.2); Calc. Creatinine Clearance 125 mL/min (70-130); Calcium 7.7 mg/dL (7.8-10.44); Carbon Dioxide 25 mmol/L (23-31); Chloride 102 mmol/L (98-107); Estimated GFR 102; Globulin 2.1 g/dL (2.4-3.5); Glucose 90 mg/dL (80-115); Potassium 3.6 mmol/L (3.5-5.1); Protein, Total 4.6 g/dL (5.8-8.1); Sodium 134 mmol/L (136-145)
[2022-04-04 07:03] LABS: Band 28 % (5-11); Lymphocytes 34 % (21-51); MDiff Complete? YES; Monocytes 10 % (0-10); Myelocyte 2 % (0-0); Neutrophil 26 % (42-75); Platelet Morphology Comment Appears Decreased
[2022-04-04] MEDS: predniSONE 20 MG TAB PO SCH (09:05)
[2022-04-04] MEDS: valACYclovir 500 MG TAB PO SCH (09:05)
[2022-04-04] MEDS: Gabapentin 300 MG CAP PO SCH ×3 (09:05→21:23)
[2022-04-04] MEDS: Folic Acid 1 MG TAB PO SCH (09:06)
[2022-04-04] MEDS ORDERED: Sodium Bicarbonate 2.5 MEQ/5 ML VIAL ONE (09:31)
[2022-04-04] MEDS: Insulin Glargine 30 UNITS/0.3 ML VIAL SC SCH (11:58)
[2022-04-04] MEDS: HumaLOG 300 UNITS/3 ML VIAL SC PRN ×3 (11:59→21:24)
[2022-04-04 15:24] LABS: #Lymphocytes 0.2 thou/uL (1.20-3.40); #Monocytes 0.1 thou/uL (0.11-0.59); %Eosinophils 0.7 % (0.0-10.0); %Lymphocytes 14.3 % (21.0-51.0); %Monocytes 5.6 % (0.0-10.0); %Neutrophils 79.4 % (42.0-75.0); Hemoglobin 6.7 g/dL (12.0-16.0); Mean Corpuscular HGB CONC 34.2 g/dL (32.0-36.0); Mean Corpuscular Hemoglobin 29.8 pg (27.0-31.0); Mean Corpuscular Volume 87.1 fl (78.0-98.0); Mean Platelet Volume 7.5 fL (7.4-10.4); Platelet Count 48 10x3/uL (130-400); RBC Distribution Width 13.1 % (11.5-14.5); Red Blood Cell (RBC) Count 2.25 mill/uL (4.20-5.40); White Blood Cell (WBC) Count 1.2 10x3/uL (4.8-10.8)
[2022-04-04 15:36] LABS: Bacteria/HPF 4+ HPF (None Seen); Bilirubin Negative (Negative); Blood, Urine 3+ (Negative); CAUTI Indications for Culture Immunosuppressed; Clarity Turbid (Clear); Glucose, Urine (Dipstick) 500 mg/dL (Negative); Ketone, Urine Trace mg/dL (Negative); Leukocyte 75 Leu/uL (Negative); Nitrite Negative (Negative); Protein, Urine (Dipstick) 20 mg/dL (Neg-Trace); RBC/HPF 21-50 HPF (0-3); Specific Gravity, Urine 1.017 (1.002-1.036); Squamous Epithelial 0-3 HPF (0-3); Urobilinogen 3 mg/dL (Less than 2); WBC/HPF 21-50 HPF (0-3)
[2022-04-04 15:40] LABS: Urine Culture Reflex Yes Yes
[2022-04-04] MEDS: Cefepime 2 GM in Sodium Chloride 0.9% 100 ML IVPB SCH ×2 (15:56→21:24)
[2022-04-05] MEDS: Sodium Chloride 0.9% 1,000 ML IV SCH ×2 (01:30→08:19)
[2022-04-05] MEDS: Cefepime 2 GM in Sodium Chloride 0.9% 100 ML IVPB SCH ×2 (06:25→16:02)
[2022-04-05] MEDS: HumaLOG 300 UNITS/3 ML VIAL SC PRN ×3 (06:27→17:26)
[2022-04-05] MEDS: predniSONE 20 MG TAB PO SCH (08:17)
[2022-04-05] MEDS: Folic Acid 1 MG TAB PO SCH (08:18)
[2022-04-05] MEDS: Gabapentin 300 MG CAP PO SCH ×3 (08:18→22:53)
[2022-04-05] MEDS: valACYclovir 500 MG TAB PO SCH (08:18)
[2022-04-05] MEDS: Insulin Glargine 30 UNITS/0.3 ML VIAL SC SCH (08:19)
[2022-04-05 08:57] LABS: Hemoglobin 7.3 g/dL (12.0-16.0); Mean Corpuscular HGB CONC 35.1 g/dL (32.0-36.0); Mean Corpuscular Hemoglobin 30.9 pg (27.0-31.0); Mean Corpuscular Volume 88.1 fl (78.0-98.0); Mean Platelet Volume 7.9 fL (7.4-10.4); Platelet Count 32 10x3/uL (130-400); RBC Distribution Width 12.9 % (11.5-14.5); Red Blood Cell (RBC) Count 2.37 mill/uL (4.20-5.40); White Blood Cell (WBC) Count 0.8 10x3/uL (4.8-10.8)
[2022-04-05] MEDS ORDERED: Sulfameth/Trimethoprim DS 800-160mg TAB PO SCH (09:00)
[2022-04-05 09:14] LABS: ALT (SGPT) 11 U/L (8-55); AST (SGOT) 7 U/L (5-34); Albumin 2.3 g/dL (3.4-4.8); Alkaline Phosphatase 98 U/L (40-110); Anion Gap 10 mmol/L (10-20); BUN (Urea Nitrogen) 14 mg/dL (9.8-20.1); Calc. Creatinine Clearance 111 mL/min (70-130); Calcium 7.4 mg/dL (7.8-10.44); Carbon Dioxide 24 mmol/L (23-31); Chloride 104 mmol/L (98-107); Estimated GFR 100; Glucose 173 mg/dL (80-115); Potassium 3.8 mmol/L (3.5-5.1); Protein, Total 4.3 g/dL (5.8-8.1); Sodium 134 mmol/L (136-145)
[2022-04-05 11:00] LABS: #Lymphocytes 0.1 thou/uL (1.20-3.40); #Monocytes 0.1 thou/uL (0.11-0.59); #Neutrophils 0.4 thou/uL (1.40-6.50); %Eosinophils 1.5 % (0.0-10.0); %Lymphocytes 22.2 % (21.0-51.0); %Monocytes 11.5 % (0.0-10.0); %Neutrophils 64.8 % (42.0-75.0); Hemoglobin 7.8 g/dL (12.0-16.0); Mean Corpuscular HGB CONC 34.2 g/dL (32.0-36.0); Mean Corpuscular Hemoglobin 30.1 pg (27.0-31.0); Mean Corpuscular Volume 87.8 fl (78.0-98.0); Mean Platelet Volume 8.7 fL (7.4-10.4); Platelet Count 29 10x3/uL (130-400); RBC Distribution Width 12.8 % (11.5-14.5); Red Blood Cell (RBC) Count 2.58 mill/uL (4.20-5.40); White Blood Cell (WBC) Count 0.7 10x3/uL (4.8-10.8)
[2022-04-05 12:05] LABS: Band 20 % (5-11); Lymphocytes 16 % (21-51); MDiff Complete? YES; Monocytes 4 % (0-10); Neutrophil 60 % (42-75); Platelet Morphology Comment Appears Decreased; Polychromasia SLIGHT = 2-3 cells (100X) (0-2/hpf)
[2022-04-05 12:29] LABS: Glucose 292 mg/dL (80-115)
[2022-04-05] MEDS: cefTRIAXone\\ROCEPHIN 1 GM in Sodium Chloride 0.9% 100 ML IVPB SCH (15:37)
[2022-04-05 17:53] LABS: Glucose 407 mg/dL (80-115)
[2022-04-06 07:52] LABS: Hemoglobin 7.9 g/dL (12.0-16.0); Mean Corpuscular Hemoglobin 29.9 pg (27.0-31.0); Mean Corpuscular Volume 87.9 fl (78.0-98.0); Mean Platelet Volume 9.1 fL (7.4-10.4); Platelet Count 23 10x3/uL (130-400); RBC Distribution Width 13.1 % (11.5-14.5); Red Blood Cell (RBC) Count 2.64 mill/uL (4.20-5.40); White Blood Cell (WBC) Count 1.2 10x3/uL (4.8-10.8)
[2022-04-06 08:05] LABS: ALT (SGPT) 15 U/L (8-55); AST (SGOT) 10 U/L (5-34); Albumin 2.3 g/dL (3.4-4.8); Alkaline Phosphatase 117 U/L (40-110); Anion Gap 12 mmol/L (10-20); BUN (Urea Nitrogen) 15 mg/dL (9.8-20.1); Bilirubin, Total 1.3 mg/dL (0.2-1.2); Calc. Creatinine Clearance 106 mL/min (70-130); Calcium 7.8 mg/dL (7.8-10.44); Carbon Dioxide 24 mmol/L (23-31); Chloride 101 mmol/L (98-107); Estimated GFR 99; Globulin 2.4 g/dL (2.4-3.5); Glucose 260 mg/dL (80-115); Potassium 3.8 mmol/L (3.5-5.1); Protein, Total 4.7 g/dL (5.8-8.1); Sodium 133 mmol/L (136-145)
[2022-04-06] MEDS: Gabapentin 300 MG CAP PO SCH ×3 (08:55→20:35)
[2022-04-06] MEDS: predniSONE 20 MG TAB PO SCH (08:55)
[2022-04-06] MEDS: Folic Acid 1 MG TAB PO SCH (08:55)
[2022-04-06] MEDS: valACYclovir 500 MG TAB PO SCH (08:56)
[2022-04-06] MEDS: Insulin Glargine 30 UNITS/0.3 ML VIAL SC SCH (09:08)
[2022-04-06 11:08] LABS: Band 32 % (5-11); Lymphocytes 16 % (21-51); MDiff Complete? YES; Monocytes 4 % (0-10); Myelocyte 4 % (0-0); Neutrophil 44 % (42-75); Platelet Morphology Comment Appears Decreased; Polychromasia SLIGHT = 2-3 cells (100X) (0-2/hpf)
[2022-04-06 12:05] LABS: Glucose 366 mg/dL (80-115)
[2022-04-06] MEDS ORDERED: Insulin Glargine 30 UNITS/0.3 ML VIAL SC SCH ×2 (17:00→21:00)
[2022-04-06 18:09] LABS: Glucose 463 mg/dL (80-115)
[2022-04-06] MEDS: cefTRIAXone\\ROCEPHIN 1 GM in Sodium Chloride 0.9% 100 ML IVPB SCH (18:19)
[2022-04-06] MEDS: HumaLOG 300 UNITS/3 ML VIAL SC PRN (21:19)
[2022-04-06 22:21] LABS: Glucose 449 mg/dL (80-115)
[2022-04-07] MEDS: HumaLOG 300 UNITS/3 ML VIAL SC PRN ×2 (00:08→13:01)
[2022-04-07] MEDS: predniSONE 20 MG TAB PO SCH (08:43)
[2022-04-07] MEDS: Gabapentin 300 MG CAP PO SCH ×2 (08:43→15:05)
[2022-04-07] MEDS: Folic Acid 1 MG TAB PO SCH (08:44)
[2022-04-07] MEDS: valACYclovir 500 MG TAB PO SCH (08:44)
[2022-04-07] MEDS ORDERED: Insulin Glargine 30 UNITS/0.3 ML VIAL SC SCH (09:00)
[2022-04-07 09:38] LABS: ALT (SGPT) 14 U/L (8-55); AST (SGOT) 9 U/L (5-34); Alkaline Phosphatase 124 U/L (40-110); Anion Gap 11 mmol/L (10-20); BUN (Urea Nitrogen) 14 mg/dL (9.8-20.1); Bilirubin, Total 1.6 mg/dL (0.2-1.2); Calc. Creatinine Clearance 118 mL/min (70-130); Calcium 8.1 mg/dL (7.8-10.44); Carbon Dioxide 27 mmol/L (23-31); Chloride 100 mmol/L (98-107); Estimated GFR 101; Globulin 2.5 g/dL (2.4-3.5); Glucose 100 mg/dL (80-115); Potassium 3.5 mmol/L (3.5-5.1); Protein, Total 5.5 g/dL (5.8-8.1); Sodium 134 mmol/L (136-145)
[2022-04-07 10:23] LABS: #Lymphocytes 0.3 thou/uL (1.20-3.40); #Monocytes 0.2 thou/uL (0.11-0.59); #Neutrophils 1.4 thou/uL (1.40-6.50); %Basophils 0.6 % (0.0-1.0); %Eosinophils 0.4 % (0.0-10.0); %Lymphocytes 18.3 % (21.0-51.0); %Monocytes 8.1 % (0.0-10.0); %Neutrophils 72.6 % (42.0-75.0); Hemoglobin 8.2 g/dL (12.0-16.0); Mean Corpuscular HGB CONC 34.1 g/dL (32.0-36.0); Mean Corpuscular Hemoglobin 29.9 pg (27.0-31.0); Mean Corpuscular Volume 87.7 fl (78.0-98.0); Mean Platelet Volume 7.5 fL (7.4-10.4); Platelet Count 59 10x3/uL (130-400); RBC Distribution Width 13.4 % (11.5-14.5); Red Blood Cell (RBC) Count 2.72 mill/uL (4.20-5.40); White Blood Cell (WBC) Count 1.9 10x3/uL (4.8-10.8)
[2022-04-07 11:40] LABS: Glucose 276 mg/dL (80-115)
[2022-04-07] MEDS: cefTRIAXone\\ROCEPHIN 1 GM in Sodium Chloride 0.9% 100 ML IVPB SCH (14:56)
[2022-04-07 17:09] VITALS: TEMP 98.1
[2022-04-07 20:52] VITALS: BP 144/64
[2022-04-11 12:02] LABS: Reference Lab Name NEOGENOMICS
== END 2022-04-07 17:36 | disposition home or self-care (01) | DRG 808 ==
LOC: ERS 18:49 → T4-B 23:17 → OBSVTOIN 23:17
PROVIDERS: ADMIT Family Medicine; ATTEND Hospitalist
PROC: 30233N1 Transfusion of Nonautologous Red Blood Cells into Peripheral Vein, Percutaneous Approach (ICD-10-PCS; 2022-04-03)
PROC: 6A551Z2 Pheresis of Platelets, Multiple (ICD-10-PCS; 2022-04-03)
PROC: 07DR3ZX Extraction of Iliac Bone Marrow, Percutaneous Approach, Diagnostic (ICD-10-PCS; principal; 2022-04-04)
PROC: 3E03329 Introduction of Other Anti-infective into Peripheral Vein, Percutaneous Approach (ICD-10-PCS; 2022-04-04)
DX: D61.810 Antineoplastic chemotherapy induced pancytopenia (principal); A41.50 Gram-negative sepsis, unspecified; S06.5X0A Traumatic subdural hemorrhage without loss of consciousness, initial encounter; E87.1 Hypo-osmolality and hyponatremia; E44.0 Moderate protein-calorie malnutrition; D84.9 Immunodeficiency, unspecified; N39.0 Urinary tract infection, site not specified; C83.30 Diffuse large B-cell lymphoma, unspecified site; D61.2 Aplastic anemia due to other external agents; I10 Essential (primary) hypertension; F41.9 Anxiety disorder, unspecified; J44.9 Chronic obstructive pulmonary disease, unspecified; F32.A Depression, unspecified; T45.1X5A Adverse effect of antineoplastic and immunosuppressive drugs, initial encounter; E11.65 Type 2 diabetes mellitus with hyperglycemia; D70.9 Neutropenia, unspecified; R50.81 Fever presenting with conditions classified elsewhere; D46.9 Myelodysplastic syndrome, unspecified; Z79.899 Other long term (current) drug therapy; Z98.890 Other specified postprocedural states; Z68.25 Body mass index [BMI] 25.0-25.9, adult; Z20.822 Contact with and (suspected) exposure to COVID-19; F12.10 Cannabis abuse, uncomplicated; W18.30XA Fall on same level, unspecified, initial encounter; Y92.230 Patient room in hospital as the place of occurrence of the external cause; Z87.891 Personal history of nicotine dependence; Z79.51 Long term (current) use of inhaled steroids; D63.0 Anemia in neoplastic disease
CPT/HCPCS: 20225; 36415; 36416; 36430; 70450; 71045; 77012; 80053; 81001; 83036; 83735; 84100; 84443; 85025; 85097; 86850; 86900; 86901; 87040; 87077; 87086; 87149; 87186; 88184; 88237; 88305; 88311; 88313; 88341; 88342; J0692; J0696; J1642; J1815; J3490; J7050; J7512; P9016; P9035; U0003; U0005

== ENCOUNTER 2022-04-10 09:03 | Day surgery (SDC) | payer OTHER ==
[2022-04-10] MEDS ORDERED: Acetaminophen 500 MG TAB PO SCH (10:15)
[2022-04-10] MEDS ORDERED: diphenhydrAMINE 25 MG CAP PO SCH (10:15)
[2022-04-10] MEDS ORDERED: Acetaminophen 500 MG TAB ONE (10:58)
[2022-04-10 15:37] VITALS: BP 129/58; TEMP 98.3
== END 2022-04-10 15:30 | disposition home or self-care (01) ==
LOC: ONC/OP 09:03
PROVIDERS: ATTEND Internal Medicine Hematology & Oncology
DX: D64.9 Anemia, unspecified (principal); D69.6 Thrombocytopenia, unspecified
CPT/HCPCS: 36430; 86850; 86900; 86901; J1642; P9016; P9035

== ENCOUNTER 2022-04-13 09:54 | Day surgery (SDC) | payer OTHER ==
[2022-04-13] MEDS ORDERED: diphenhydrAMINE 25 MG CAP PO SCH (10:15)
[2022-04-13] MEDS ORDERED: Acetaminophen 500 MG TAB PO SCH (10:15)
[2022-04-13] MEDS ORDERED: Acetaminophen 500 MG TAB ONE (10:36)
[2022-04-13 15:39] VITALS: BP 127/65; TEMP 98.1
== END 2022-04-13 15:41 | disposition home or self-care (01) ==
LOC: ONC/OP 09:54
PROVIDERS: ATTEND Internal Medicine Hematology & Oncology
PROC: 30233R1 Transfusion of Nonautologous Platelets into Peripheral Vein, Percutaneous Approach (ICD-10-PCS; principal; 2022-04-13)
PROC: 30233N1 Transfusion of Nonautologous Red Blood Cells into Peripheral Vein, Percutaneous Approach (ICD-10-PCS; principal; 2022-04-13)
DX: D64.9 Anemia, unspecified (principal); D69.6 Thrombocytopenia, unspecified
CPT/HCPCS: 36430; 86850; 86900; 86901; J1642; P9016; P9035

== ENCOUNTER 2022-04-17 11:24 | Day surgery (SDC) | payer OTHER ==
[2022-04-17] MEDS ORDERED: Acetaminophen 500 MG TAB PO SCH (12:00)
[2022-04-17] MEDS ORDERED: diphenhydrAMINE 25 MG CAP PO SCH (12:00)
[2022-04-17] MEDS ORDERED: Acetaminophen 500 MG TAB ONE (12:06)
[2022-04-17 13:15] VITALS: BP 117/53; TEMP 98
== END 2022-04-17 13:15 | disposition home or self-care (01) ==
LOC: ONC/OP 11:24
PROVIDERS: ATTEND Internal Medicine Hematology & Oncology
PROC: 30233R1 Transfusion of Nonautologous Platelets into Peripheral Vein, Percutaneous Approach (ICD-10-PCS; principal; 2022-04-17)
DX: D69.6 Thrombocytopenia, unspecified (principal); D64.9 Anemia, unspecified
CPT/HCPCS: 36430; 86900; 86901; J1642; P9035

== ENCOUNTER 2022-04-19 11:02 | Day surgery (SDC) | payer OTHER, SELFPAY ==
[2022-04-19] MEDS ORDERED: Acetaminophen 500 MG TAB PO SCH (11:30)
[2022-04-19] MEDS ORDERED: diphenhydrAMINE 25 MG CAP PO SCH (11:30)
[2022-04-19] MEDS ORDERED: Acetaminophen 500 MG TAB ONE (11:56)
[2022-04-19 12:48] VITALS: BP 115/58; TEMP 97.8
== END 2022-04-19 16:58 | disposition home or self-care (01) ==
LOC: ONC/OP 11:02
PROVIDERS: ATTEND Internal Medicine Hematology & Oncology
PROC: 30233R1 Transfusion of Nonautologous Platelets into Peripheral Vein, Percutaneous Approach (ICD-10-PCS; principal; 2022-04-19)
DX: D69.59 Other secondary thrombocytopenia (principal); D64.9 Anemia, unspecified
CPT/HCPCS: 36430; 86900; 86901; 96365; J1642; P9035

== ENCOUNTER 2022-04-21 10:29 | Day surgery (SDC) | payer OTHER ==
[2022-04-21] MEDS ORDERED: Acetaminophen 500 MG TAB ONE (10:42)
[2022-04-21 12:03] VITALS: BP 143/57; TEMP 97.7
== END 2022-04-21 12:02 | disposition home or self-care (01) ==
LOC: ONC/OP 10:29
PROVIDERS: ATTEND Internal Medicine Hematology & Oncology
PROC: 30233R1 Transfusion of Nonautologous Platelets into Peripheral Vein, Percutaneous Approach (ICD-10-PCS; principal; 2022-04-21)
DX: D69.6 Thrombocytopenia, unspecified (principal); D64.9 Anemia, unspecified
CPT/HCPCS: 36430; 86850; 86900; 86901; P9035

== ENCOUNTER 2022-04-24 09:03 | Day surgery (SDC) | payer OTHER ==
[2022-04-24] MEDS ORDERED: diphenhydrAMINE 25 MG CAP PO SCH (09:45)
[2022-04-24] MEDS ORDERED: Acetaminophen 500 MG TAB PO SCH (09:45)
[2022-04-24] MEDS ORDERED: Acetaminophen 500 MG TAB ONE (09:51)
[2022-04-24 15:07] VITALS: BP 141/60; TEMP 97.7
== END 2022-04-24 13:55 | disposition home or self-care (01) ==
LOC: ONC/OP 09:03
PROVIDERS: ATTEND Internal Medicine Hematology & Oncology
PROC: 30233R1 Transfusion of Nonautologous Platelets into Peripheral Vein, Percutaneous Approach (ICD-10-PCS; principal; 2022-04-24)
PROC: 30233N1 Transfusion of Nonautologous Red Blood Cells into Peripheral Vein, Percutaneous Approach (ICD-10-PCS; principal; 2022-04-24)
DX: D64.9 Anemia, unspecified (principal); D69.6 Thrombocytopenia, unspecified
CPT/HCPCS: 36430; 86850; 86900; 86901; J1642; P9016; P9035

== ENCOUNTER 2022-04-27 09:34 | Inpatient (IN) | payer OTHER ==
[2022-04-27 10:29] LABS: Hemoglobin 6.2 g/dL (12.0-16.0); Mean Corpuscular HGB CONC 35.6 g/dL (32.0-36.0); Mean Corpuscular Hemoglobin 30.4 pg (27.0-31.0); Mean Corpuscular Volume 85.5 fl (78.0-98.0); Mean Platelet Volume 12.7 fL (7.4-10.4); Platelet Count 4 10x3/uL (130-400); RBC Distribution Width 12.7 % (11.5-14.5); Red Blood Cell (RBC) Count 2.03 mill/uL (4.20-5.40); White Blood Cell (WBC) Count 0.2 10x3/uL (4.8-10.8)
[2022-04-27 10:48] LABS: ALT (SGPT) 17 U/L (8-55); AST (SGOT) 13 U/L (5-34); Albumin 2.9 g/dL (3.4-4.8); Alkaline Phosphatase 152 U/L (40-110); Anion Gap 9 mmol/L (10-20); BUN (Urea Nitrogen) 12 mg/dL (9.8-20.1); Bilirubin, Total 3.1 mg/dL (0.2-1.2); Calc. Creatinine Clearance 0 mL/min (70-130); Calcium 8.1 mg/dL (7.8-10.44); Carbon Dioxide 26 mmol/L (23-31); Chloride 103 mmol/L (98-107); Estimated GFR 99; Globulin 2.2 g/dL (2.4-3.5); Glucose 258 mg/dL (80-115); Lipase Less than 4 U/L (8-78); Potassium 3.8 mmol/L (3.5-5.1); Protein, Total 5.1 g/dL (5.8-8.1); Sodium 134 mmol/L (136-145)
[2022-04-27 10:55] LABS: MDiff Complete? YES; Platelet Morphology Comment Appears Decreased; Polychromasia SLIGHT = 2-3 cells (100X) (0-2/hpf)
[2022-04-27] MEDS ORDERED: Piperacillin/Tazobactam 3.375 GM VIAL ONE (11:14)
[2022-04-27] MEDS ORDERED: Iopamidol-370 76% 500 ML 1 ML ONE (11:57)
[2022-04-27] MEDS ORDERED: Senokot S 8.6-50 MG TAB PO PRN (12:18)
[2022-04-27] MEDS ORDERED: Ondansetron PF 4 MG/2 ML Vial IVP PRN (12:18)
[2022-04-27] MEDS ORDERED: Bisacodyl 5 MG TAB PO PRN (12:18)
[2022-04-27] MEDS ORDERED: Acetaminophen 325 MG TAB PO PRN (12:18)
[2022-04-27] MEDS ORDERED: CEFEPIME IVPB SCH (12:30)
[2022-04-27] MEDS ORDERED: METRONIDAZOLE IVPB SCH (12:30)
[2022-04-27] MEDS ORDERED: VANCOMYCIN IVPB SCH (12:30)
[2022-04-27 14:45] LABS: Bacteria/HPF None Seen HPF (None Seen); Bilirubin Negative (Negative); Blood, Urine Trace (Negative); Clarity Clear (Clear); Glucose, Urine (Dipstick) 100 mg/dL (Negative); Ketone, Urine 10 mg/dL (Negative); Leukocyte Negative Leu/uL (Negative); Nitrite Negative (Negative); Protein, Urine (Dipstick) Negative (Neg-Trace); RBC/HPF 0-3 HPF (0-3); Specific Gravity, Urine 1.039 (1.002-1.036); Squamous Epithelial 0-3 HPF (0-3); Urobilinogen Normal mg/dL (Less than 2); WBC/HPF 0-3 HPF (0-3); pH, Urine 7.5 (5.0-9.0)
[2022-04-27] MEDS ORDERED: Promethazine HCl 25 MG in Sodium Chloride 0.9% 50 ML IVPB PRN (15:15)
[2022-04-27] MEDS: Cefepime 2 GM in Sodium Chloride 0.9% 100 ML IVPB SCH ×2 (15:35→21:14)
[2022-04-27] MEDS: metroNIDAZOLE 500 MG in Premix Bag 1 BAG IVPB SCH ×2 (16:00→21:15)
[2022-04-27] MEDS ORDERED: Magnesium Citrate 300 ML BOT PO SCH (17:00)
[2022-04-27 17:09] VITALS: BMI 26.6
[2022-04-27 17:11] LABS: SARS-CoV-2 NAA Rapid Test Not Detected (NotDetected)
[2022-04-27] MEDS ORDERED: Morphine 2 MG/ML VIAL SLOW IVP SCH (17:45)
[2022-04-27] MEDS ORDERED: HYDROmorphone 0.5 MG/0.5 ML SYRINGE SLOW IVP SCH (17:45)
[2022-04-27] MEDS ORDERED: VANCOMYCIN 2 GRAM/500 ML BAG 2 GM in Premix Bag 1 BAG IVPB SCH (18:00)
[2022-04-27 18:14] LABS: Bacteria/HPF None Seen HPF (None Seen); Bilirubin Negative (Negative); Blood, Urine 2+ (Negative); Clarity Clear (Clear); Glucose, Urine (Dipstick) 70 mg/dL (Negative); Ketone, Urine Trace mg/dL (Negative); Leukocyte Negative Leu/uL (Negative); Nitrite Negative (Negative); Protein, Urine (Dipstick) Negative (Neg-Trace); RBC/HPF Greater than 50 HPF (0-3); Specific Gravity, Urine 1.028 (1.002-1.036); Squamous Epithelial None Seen HPF (0-3); Urobilinogen Normal mg/dL (Less than 2); WBC/HPF 0-3 HPF (0-3); pH, Urine 7.5 (5.0-9.0)
[2022-04-27] MEDS: Acetaminophen 325 MG TAB PO SCH ×2 (18:16→23:55)
[2022-04-27 18:29] LABS: Legionella Urinary Ag Negative (Negative); Strep pneumo Urine Ag NEGATIVE (NEGATIVE)
[2022-04-27] MEDS: Senokot S 8.6-50 MG TAB PO SCH (21:15)
[2022-04-28] MEDS ORDERED: Morphine 2 MG/ML VIAL SLOW IVP PRN (02:55)
[2022-04-28] MEDS: Vancomycin 1 GM in Premix Bag 1 BAG IVPB SCH ×2 (04:30→17:08)
[2022-04-28 05:17] LABS: Hemoglobin 6.9 g/dL (12.0-16.0); Mean Corpuscular Hemoglobin 30.2 pg (27.0-31.0); Mean Corpuscular Volume 83.9 fl (78.0-98.0); Mean Platelet Volume 8.7 fL (7.4-10.4); Platelet Count 20 10x3/uL (130-400); RBC Distribution Width 13.5 % (11.5-14.5); Red Blood Cell (RBC) Count 2.28 mill/uL (4.20-5.40); White Blood Cell (WBC) Count 0.4 10x3/uL (4.8-10.8)
[2022-04-28 05:23] LABS: ALT (SGPT) 15 U/L (8-55); AST (SGOT) 13 U/L (5-34); Albumin 2.7 g/dL (3.4-4.8); Alkaline Phosphatase 129 U/L (40-110); Anion Gap 7 mmol/L (10-20); BUN (Urea Nitrogen) 12 mg/dL (9.8-20.1); Bilirubin, Total 3.1 mg/dL (0.2-1.2); Calc. Creatinine Clearance 111 mL/min (70-130); Calcium 7.9 mg/dL (7.8-10.44); Carbon Dioxide 25 mmol/L (23-31); Chloride 110 mmol/L (98-107); Estimated GFR 100; Glucose 222 mg/dL (80-115); Magnesium 1.8 mg/dL (1.6-2.6); Potassium 3.1 mmol/L (3.5-5.1); Protein, Total 4.6 g/dL (5.8-8.1); Sodium 139 mmol/L (136-145)
[2022-04-28] MEDS ORDERED: Vancomycin 1 GM in Premix Bag 1 BAG IVPB SCH (06:00)
[2022-04-28] MEDS: Cefepime 2 GM in Sodium Chloride 0.9% 100 ML IVPB SCH ×3 (06:00→20:47)
[2022-04-28] MEDS: Acetaminophen 325 MG TAB PO SCH ×4 (06:00→23:09)
[2022-04-28] MEDS: metroNIDAZOLE 500 MG in Premix Bag 1 BAG IVPB SCH ×3 (06:01→20:49)
[2022-04-28] MEDS ORDERED: Potassium Chloride 20 MEQ TAB PO SCH (07:45)
[2022-04-28] MEDS ORDERED: Bisacodyl 5 MG TAB PO SCH (09:15)
[2022-04-28] MEDS ORDERED: Lidocaine 5% Patch TD SCH (09:30)
[2022-04-28] MEDS: Senokot S 8.6-50 MG TAB PO SCH ×2 (10:23→20:46)
[2022-04-28] MEDS: Polyethylene Glycol 3350 17 GM Packet PO SCH (10:23)
[2022-04-28] MEDS: Morphine 2 MG/ML VIAL SLOW IVP PRN ×2 (15:59→23:10)
[2022-04-28] MEDS: Lorazepam 0.5 MG TAB PO PRN (20:46)
[2022-04-28] MEDS ORDERED: Transdermal Patch Removal TOP SCH (21:30)
[2022-04-29] MEDS: Cefepime 2 GM in Sodium Chloride 0.9% 100 ML IVPB SCH ×3 (04:57→20:05)
[2022-04-29 05:39] LABS: Hemoglobin 8.4 g/dL (12.0-16.0); Mean Corpuscular HGB CONC 35.5 g/dL (32.0-36.0); Mean Corpuscular Volume 84.5 fl (78.0-98.0); Mean Platelet Volume 9.9 fL (7.4-10.4); Platelet Count 14 10x3/uL (130-400); RBC Distribution Width 13.6 % (11.5-14.5); Red Blood Cell (RBC) Count 2.82 mill/uL (4.20-5.40); White Blood Cell (WBC) Count 0.3 10x3/uL (4.8-10.8)
[2022-04-29 05:45] LABS: Vancomycin, Trough 16.7 ug/mL
[2022-04-29 05:47] LABS: Anion Gap 9 mmol/L (10-20); BUN (Urea Nitrogen) 12 mg/dL (9.8-20.1); Calc. Creatinine Clearance 113 mL/min (70-130); Calcium 8.2 mg/dL (7.8-10.44); Carbon Dioxide 22 mmol/L (23-31); Chloride 110 mmol/L (98-107); Estimated GFR 100; Glucose 151 mg/dL (80-115); Magnesium 1.6 mg/dL (1.6-2.6); Potassium 3.1 mmol/L (3.5-5.1); Sodium 138 mmol/L (136-145)
[2022-04-29] MEDS: Vancomycin 1 GM in Premix Bag 1 BAG IVPB SCH ×3 (05:50→18:27)
[2022-04-29] MEDS: Acetaminophen 325 MG TAB PO SCH ×3 (05:53→18:26)
[2022-04-29] MEDS: metroNIDAZOLE 500 MG in Premix Bag 1 BAG IVPB SCH ×3 (05:53→20:06)
[2022-04-29] MEDS: Senokot S 8.6-50 MG TAB PO SCH ×2 (09:42→20:05)
[2022-04-29] MEDS: Lorazepam 0.5 MG TAB PO PRN (09:42)
[2022-04-29] MEDS: Citalopram 10 MG TAB PO SCH (09:42)
[2022-04-29] MEDS: Lidocaine 5% Patch TD SCH (09:45)
[2022-04-29] MEDS: Polyethylene Glycol 3350 17 GM Packet PO SCH (09:45)
[2022-04-29] MEDS: Morphine 2 MG/ML VIAL SLOW IVP PRN ×3 (12:21→21:23)
[2022-04-29] MEDS ORDERED: GoLYTELY 4,000 ml Bottle PO SCH (13:00)
[2022-04-29] MEDS ORDERED: Ketorolac Tromethamine 30 MG/ML VIAL IVP PRN (15:51)
[2022-04-29] MEDS: Transdermal Patch Removal TOP SCH (20:06)
[2022-04-30] MEDS: Acetaminophen 325 MG TAB PO SCH ×5 (00:35→23:51)
[2022-04-30] MEDS: Morphine 2 MG/ML VIAL SLOW IVP PRN ×2 (01:57→07:05)
[2022-04-30] MEDS: Cefepime 2 GM in Sodium Chloride 0.9% 100 ML IVPB SCH ×3 (04:55→21:46)
[2022-04-30] MEDS: Vancomycin 1 GM in Premix Bag 1 BAG IVPB SCH ×2 (04:58→18:13)
[2022-04-30] MEDS: metroNIDAZOLE 500 MG in Premix Bag 1 BAG IVPB SCH ×3 (04:58→21:46)
[2022-04-30 06:32] LABS: Hemoglobin 8.2 g/dL (12.0-16.0); Mean Corpuscular Hemoglobin 29.4 pg (27.0-31.0); Mean Corpuscular Volume 84.2 fl (78.0-98.0); Mean Platelet Volume 9.6 fL (7.4-10.4); Platelet Count 8 10x3/uL (130-400); RBC Distribution Width 13.4 % (11.5-14.5); Red Blood Cell (RBC) Count 2.79 mill/uL (4.20-5.40); White Blood Cell (WBC) Count 0.7 10x3/uL (4.8-10.8)
[2022-04-30 06:47] LABS: Anion Gap 9 mmol/L (10-20); BUN (Urea Nitrogen) 9 mg/dL (9.8-20.1); Calc. Creatinine Clearance 132 mL/min (70-130); Calcium 7.8 mg/dL (7.8-10.44); Carbon Dioxide 24 mmol/L (23-31); Chloride 104 mmol/L (98-107); Estimated GFR 104; Glucose 131 mg/dL (80-115); Magnesium 1.3 mg/dL (1.6-2.6); Phosphorus 1.8 mg/dL (2.3-4.7); Potassium 2.8 mmol/L (3.5-5.1); Sodium 134 mmol/L (136-145)
[2022-04-30 07:02] LABS: Lymphocytes 88 % (21-51); MDiff Complete? YES; Monocytes 2 % (0-10); Neutrophil 8 % (42-75); Nucleated RBC 1 % (0); Platelet Morphology Comment Appears Decreased; Reactive Lymphocytes 2 % (0-10)
[2022-04-30] MEDS ORDERED: Electrolyte Replacement Protocol 1 EACH FS SCH (08:37)
[2022-04-30] MEDS ORDERED: PROPOFOL 200 MG/20 ML VIAL ONE (09:47)
[2022-04-30] MEDS ORDERED: Magnesium Sulfate 4 GM in Sodium Chloride 0.9% 250 ML 250 ML IVPB SCH (11:00)
[2022-04-30] MEDS ORDERED: GoLYTELY 4,000 ml Bottle PO SCH (11:00)
[2022-04-30] MEDS: Lidocaine 5% Patch TD SCH (11:44)
[2022-04-30] MEDS: Bisacodyl 10 MG SUPP PR SCH (12:01)
[2022-04-30] MEDS: Senokot S 8.6-50 MG TAB PO SCH ×2 (12:01→21:45)
[2022-04-30] MEDS: Citalopram 10 MG TAB PO SCH (12:01)
[2022-04-30] MEDS: Polyethylene Glycol 3350 17 GM Packet PO SCH (12:02)
[2022-04-30] MEDS: Potassium Chloride 40 MEQ in Premix Bag 1 BAG IVPB SCH ×2 (12:05→14:22)
[2022-04-30] MEDS: PHOS-NAK 1 PKT PACK PO SCH ×2 (16:25→21:46)
[2022-04-30] MEDS: Lorazepam 0.5 MG TAB PO PRN (16:38)
[2022-04-30 17:51] LABS: Vancomycin, Trough 18.7 ug/mL
[2022-04-30 18:50] LABS: Potassium 3.8 mmol/L (3.5-5.1)
[2022-04-30 18:59] LABS: Hemoglobin 7.6 g/dL (12.0-16.0); Mean Corpuscular HGB CONC 36.6 g/dL (32.0-36.0); Mean Corpuscular Hemoglobin 30.5 pg (27.0-31.0); Mean Corpuscular Volume 83.3 fl (78.0-98.0); Mean Platelet Volume 8.3 fL (7.4-10.4); Platelet Count 38 10x3/uL (130-400); RBC Distribution Width 13.3 % (11.5-14.5); Red Blood Cell (RBC) Count 2.49 mill/uL (4.20-5.40); White Blood Cell (WBC) Count 0.2 10x3/uL (4.8-10.8)
[2022-04-30] MEDS: Transdermal Patch Removal TOP SCH (21:44)
[2022-05-01] MEDS: Cefepime 2 GM in Sodium Chloride 0.9% 100 ML IVPB SCH ×3 (04:47→20:38)
[2022-05-01] MEDS: Acetaminophen 325 MG TAB PO SCH ×3 (04:47→18:15)
[2022-05-01] MEDS: Vancomycin 1 GM in Premix Bag 1 BAG IVPB SCH ×2 (05:27→18:09)
[2022-05-01] MEDS: metroNIDAZOLE 500 MG in Premix Bag 1 BAG IVPB SCH ×3 (05:27→20:38)
[2022-05-01 05:53] LABS: Mean Corpuscular Hemoglobin 29.4 pg (27.0-31.0); Platelet Count 36 10x3/uL (130-400); Red Blood Cell (RBC) Count 2.38 mill/uL (4.20-5.40); White Blood Cell (WBC) Count 0.3 10x3/uL (4.8-10.8)
[2022-05-01 06:12] LABS: ALT (SGPT) 12 U/L (8-55); AST (SGOT) 18 U/L (5-34); Albumin 2.4 g/dL (3.4-4.8); Alkaline Phosphatase 174 U/L (40-110); Anion Gap 11 mmol/L (10-20); BUN (Urea Nitrogen) 10 mg/dL (9.8-20.1); Bilirubin, Total 2.2 mg/dL (0.2-1.2); Calc. Creatinine Clearance 146 mL/min (70-130); Calcium 8.1 mg/dL (7.8-10.44); Carbon Dioxide 25 mmol/L (23-31); Chloride 104 mmol/L (98-107); Estimated GFR 106; Glucose 138 mg/dL (80-115); Phosphorus 1.6 mg/dL (2.3-4.7); Potassium 3.4 mmol/L (3.5-5.1); Protein, Total 4.4 g/dL (5.8-8.1); Sodium 137 mmol/L (136-145)
[2022-05-01] MEDS ORDERED: Potassium Chloride 20 MEQ TAB PO SCH (08:00)
[2022-05-01] MEDS ORDERED: Electrolyte Replacement Protocol 1 EACH FS SCH (08:00)
[2022-05-01] MEDS ORDERED: Magnesium 2 GM/50 ML(in water) 2 GM in Premix Bag 1 BAG IVPB SCH (08:00)
[2022-05-01] MEDS: Lidocaine 4% Patch TD SCH (08:27)
[2022-05-01] MEDS: PHOS-NAK 1 PKT PACK PO SCH ×2 (08:28→14:28)
[2022-05-01] MEDS: Bisacodyl 10 MG SUPP PR SCH (08:29)
[2022-05-01] MEDS: Polyethylene Glycol 3350 17 GM Packet PO SCH ×2 (08:30→20:38)
[2022-05-01] MEDS: Citalopram 10 MG TAB PO SCH (08:31)
[2022-05-01] MEDS: Senokot S 8.6-50 MG TAB PO SCH ×2 (08:31→20:37)
[2022-05-01] MEDS: Lorazepam 0.5 MG TAB PO PRN ×3 (08:31→19:27)
[2022-05-01] MEDS ORDERED: Polyethylene Glycol 3350 17 GM Packet PO SCH (12:00)
[2022-05-01] MEDS: Transdermal Patch Removal TOP SCH (20:39)
[2022-05-02] MEDS: Acetaminophen 325 MG TAB PO SCH ×5 (00:56→23:39)
[2022-05-02 04:54] LABS: Hemoglobin 7.1 g/dL (12.0-16.0); Mean Corpuscular HGB CONC 36.1 g/dL (32.0-36.0); Mean Corpuscular Hemoglobin 29.9 pg (27.0-31.0); Mean Corpuscular Volume 82.9 fl (78.0-98.0); Mean Platelet Volume 8.5 fL (7.4-10.4); Platelet Count 20 10x3/uL (130-400); RBC Distribution Width 12.8 % (11.5-14.5); Red Blood Cell (RBC) Count 2.36 mill/uL (4.20-5.40); White Blood Cell (WBC) Count 0.3 10x3/uL (4.8-10.8)
[2022-05-02] MEDS: Cefepime 2 GM in Sodium Chloride 0.9% 100 ML IVPB SCH (05:08)
[2022-05-02 05:14] LABS: Vancomycin, Trough 17.4 ug/mL
[2022-05-02 05:17] LABS: ALT (SGPT) 14 U/L (8-55); AST (SGOT) 17 U/L (5-34); Albumin 2.7 g/dL (3.4-4.8); Alkaline Phosphatase 211 U/L (40-110); Anion Gap 11 mmol/L (10-20); BUN (Urea Nitrogen) 10 mg/dL (9.8-20.1); Calc. Creatinine Clearance 146 mL/min (70-130); Calcium 8.1 mg/dL (7.8-10.44); Carbon Dioxide 25 mmol/L (23-31); Chloride 104 mmol/L (98-107); Estimated GFR 106; Glucose 140 mg/dL (80-115); Magnesium 1.7 mg/dL (1.6-2.6); Potassium 3.1 mmol/L (3.5-5.1); Protein, Total 4.7 g/dL (5.8-8.1); Sodium 137 mmol/L (136-145)
[2022-05-02 05:18] LABS: Platelet Morphology Comment Appears Decreased
[2022-05-02] MEDS: Vancomycin 1 GM in Premix Bag 1 BAG IVPB SCH (05:34)
[2022-05-02] MEDS: metroNIDAZOLE 500 MG in Premix Bag 1 BAG IVPB SCH ×3 (05:36→22:23)
[2022-05-02] MEDS ORDERED: Magnesium 2 GM/50 ML(in water) 2 GM in Premix Bag 1 BAG IVPB SCH (08:00)
[2022-05-02] MEDS ORDERED: Potassium Chloride 20 MEQ TAB PO SCH (08:00)
[2022-05-02] MEDS ORDERED: Electrolyte Replacement Protocol 1 EACH FS SCH (08:02)
[2022-05-02] MEDS: Bisacodyl 10 MG SUPP PR SCH (08:39)
[2022-05-02] MEDS: Citalopram 10 MG TAB PO SCH (08:41)
[2022-05-02] MEDS: Senokot S 8.6-50 MG TAB PO SCH ×2 (08:41→22:24)
[2022-05-02] MEDS: Lidocaine 4% Patch TD SCH (08:41)
[2022-05-02] MEDS: Polyethylene Glycol 3350 17 GM Packet PO SCH ×3 (08:42→22:26)
[2022-05-02] MEDS: Lorazepam 0.5 MG TAB PO PRN (09:28)
[2022-05-02] MEDS: PHOS-NAK 1 PKT PACK PO SCH ×2 (10:09→14:28)
[2022-05-02] MEDS: Morphine 2 MG/ML VIAL SLOW IVP PRN ×3 (10:20→22:22)
[2022-05-02] MEDS: Voriconazole 50 MG TAB PO SCH (22:25)
[2022-05-02] MEDS: Transdermal Patch Removal TOP SCH (22:52)
[2022-05-03 05:29] LABS: Hemoglobin 7.6 g/dL (12.0-16.0); Mean Corpuscular HGB CONC 35.4 g/dL (32.0-36.0); Mean Corpuscular Hemoglobin 29.2 pg (27.0-31.0); Mean Corpuscular Volume 82.6 fl (78.0-98.0); Mean Platelet Volume 9.1 fL (7.4-10.4); Platelet Count 14 10x3/uL (130-400); RBC Distribution Width 12.6 % (11.5-14.5); White Blood Cell (WBC) Count 0.3 10x3/uL (4.8-10.8)
[2022-05-03 05:57] LABS: Anion Gap 9 mmol/L (10-20); BUN (Urea Nitrogen) 13 mg/dL (9.8-20.1); Calc. Creatinine Clearance 146 mL/min (70-130); Carbon Dioxide 26 mmol/L (23-31); Chloride 105 mmol/L (98-107); Estimated GFR 106; Glucose 108 mg/dL (80-115); Magnesium 1.8 mg/dL (1.6-2.6); Potassium 3.3 mmol/L (3.5-5.1); Sodium 137 mmol/L (136-145)
[2022-05-03] MEDS: Acetaminophen 325 MG TAB PO SCH ×3 (06:13→17:39)
[2022-05-03] MEDS: metroNIDAZOLE 500 MG in Premix Bag 1 BAG IVPB SCH ×3 (06:16→21:13)
[2022-05-03] MEDS: Polyethylene Glycol 3350 17 GM Packet PO SCH ×3 (06:16→21:15)
[2022-05-03] MEDS ORDERED: Potassium Chloride 20 MEQ TAB PO SCH (08:00)
[2022-05-03] MEDS ORDERED: Magnesium 2 GM/50 ML(in water) 2 GM in Premix Bag 1 BAG IVPB SCH (08:00)
[2022-05-03] MEDS: Lidocaine 4% Patch TD SCH (08:20)
[2022-05-03] MEDS: Citalopram 10 MG TAB PO SCH (08:22)
[2022-05-03] MEDS: Senokot S 8.6-50 MG TAB PO SCH ×2 (08:22→21:13)
[2022-05-03] MEDS: valACYclovir 500 MG TAB PO SCH (08:22)
[2022-05-03] MEDS: Voriconazole 50 MG TAB PO SCH ×2 (08:22→21:14)
[2022-05-03] MEDS: Bisacodyl 10 MG SUPP PR SCH (08:23)
[2022-05-03] MEDS: Lorazepam 0.5 MG TAB PO PRN (21:13)
[2022-05-03] MEDS: Transdermal Patch Removal TOP SCH (21:15)
[2022-05-04] MEDS: Acetaminophen 325 MG TAB PO SCH ×3 (01:52→12:30)
[2022-05-04] MEDS: Polyethylene Glycol 3350 17 GM Packet PO SCH ×2 (05:01→15:02)
[2022-05-04] MEDS: metroNIDAZOLE 500 MG in Premix Bag 1 BAG IVPB SCH ×2 (05:01→15:02)
[2022-05-04 05:54] LABS: Hemoglobin 7.3 g/dL (12.0-16.0); Mean Corpuscular HGB CONC 36.3 g/dL (32.0-36.0); Mean Corpuscular Hemoglobin 30.1 pg (27.0-31.0); Mean Platelet Volume 11.3 fL (7.4-10.4); Platelet Count 8 10x3/uL (130-400); RBC Distribution Width 12.6 % (11.5-14.5); Red Blood Cell (RBC) Count 2.41 mill/uL (4.20-5.40); White Blood Cell (WBC) Count 0.3 10x3/uL (4.8-10.8)
[2022-05-04 06:18] LABS: ALT (SGPT) 11 U/L (8-55); AST (SGOT) 15 U/L (5-34); Albumin 2.6 g/dL (3.4-4.8); Alkaline Phosphatase 242 U/L (40-110); Anion Gap 11 mmol/L (10-20); BUN (Urea Nitrogen) 12 mg/dL (9.8-20.1); Bilirubin, Total 1.7 mg/dL (0.2-1.2); Calc. Creatinine Clearance 132 mL/min (70-130); Calcium 8.2 mg/dL (7.8-10.44); Carbon Dioxide 25 mmol/L (23-31); Chloride 101 mmol/L (98-107); Estimated GFR 104; Glucose 91 mg/dL (80-115); Magnesium 1.7 mg/dL (1.6-2.6); Potassium 3.4 mmol/L (3.5-5.1); Protein, Total 4.6 g/dL (5.8-8.1); Sodium 134 mmol/L (136-145)
[2022-05-04] MEDS ORDERED: Potassium Chloride 20 MEQ TAB PO SCH (08:00)
[2022-05-04] MEDS ORDERED: Magnesium 2 GM/50 ML(in water) 2 GM in Premix Bag 1 BAG IVPB SCH (08:00)
[2022-05-04] MEDS: valACYclovir 500 MG TAB PO SCH (09:15)
[2022-05-04] MEDS: Lidocaine 4% Patch TD SCH (09:16)
[2022-05-04] MEDS: Bisacodyl 10 MG SUPP PR SCH (09:16)
[2022-05-04] MEDS: Citalopram 10 MG TAB PO SCH (09:16)
[2022-05-04] MEDS: Senokot S 8.6-50 MG TAB PO SCH (09:16)
[2022-05-04] MEDS: Voriconazole 50 MG TAB PO SCH (09:17)
[2022-05-04 14:11] VITALS: BP 116/56; TEMP 98.1
== END 2022-05-04 15:22 | disposition home or self-care (01) | DRG 388 ==
LOC: SUATTDRO 09:34 → ERS 09:34 → MSONC 14:58
PROVIDERS: ADMIT Family Medicine; ATTEND Internal Medicine
PROC: 30233R1 Transfusion of Nonautologous Platelets into Peripheral Vein, Percutaneous Approach (ICD-10-PCS; principal; 2022-04-27)
PROC: 30233N1 Transfusion of Nonautologous Red Blood Cells into Peripheral Vein, Percutaneous Approach (ICD-10-PCS; 2022-04-27)
DX: K56.41 Fecal impaction (principal); J18.9 Pneumonia, unspecified organism; C85.10 Unspecified B-cell lymphoma, unspecified site; C94.6 Myelodysplastic disease, not elsewhere classified; E87.1 Hypo-osmolality and hyponatremia; D61.818 Other pancytopenia; C85.90 Non-Hodgkin lymphoma, unspecified, unspecified site; D61.9 Aplastic anemia, unspecified; F32.0 Major depressive disorder, single episode, mild; K52.89 Other specified noninfective gastroenteritis and colitis; Z66 Do not resuscitate; Z20.822 Contact with and (suspected) exposure to COVID-19; J44.9 Chronic obstructive pulmonary disease, unspecified; K62.89 Other specified diseases of anus and rectum; K64.4 Residual hemorrhoidal skin tags; Z79.899 Other long term (current) drug therapy; Z79.52 Long term (current) use of systemic steroids
CPT/HCPCS: 36415; 36430; 51702; 71045; 74177; 80048; 80053; 80076; 80202; 81003; 81015; 83690; 83735; 83880; 84100; 85025; 86850; 86900; 86901; 87040; 87081; 87086; 87449; 87811; 87899; 93005; 93010; 96365; J0692; J1170; J1642; J2272; J2405; J2543; J2704; J3370; J3370-JW; J3475; J3480; J3490; J7050; P9016; P9035; Q9967

== ENCOUNTER 2022-05-08 09:08 | Day surgery (SDC) | payer OTHER ==
[2022-05-08] MEDS ORDERED: diphenhydrAMINE 25 MG CAP PO SCH (09:30)
[2022-05-08] MEDS ORDERED: Acetaminophen 500 MG TAB PO SCH (09:30)
[2022-05-08] MEDS ORDERED: Acetaminophen 500 MG TAB ONE (09:52)
[2022-05-08 11:26] VITALS: TEMP 98.4
[2022-05-08 11:54] VITALS: BP 118/59
== END 2022-05-08 14:00 | disposition home or self-care (01) ==
LOC: ONC/OP 09:08
PROVIDERS: ATTEND Internal Medicine Hematology & Oncology
PROC: 30233R1 Transfusion of Nonautologous Platelets into Peripheral Vein, Percutaneous Approach (ICD-10-PCS; principal; 2022-05-08)
PROC: 30233N1 Transfusion of Nonautologous Red Blood Cells into Peripheral Vein, Percutaneous Approach (ICD-10-PCS; principal; 2022-05-08)
DX: D69.6 Thrombocytopenia, unspecified (principal); D64.9 Anemia, unspecified
CPT/HCPCS: 36430; 86850; 86900; 86901; J1642; P9016; P9035

== ENCOUNTER 2022-05-11 09:14 | Day surgery (SDC) | payer OTHER ==
[2022-05-11] MEDS ORDERED: diphenhydrAMINE 25 MG CAP PO SCH (10:00)
[2022-05-11] MEDS ORDERED: Acetaminophen 500 MG TAB PO SCH (10:00)
[2022-05-11] MEDS ORDERED: Ondansetron PF 4 MG/2 ML Vial IVP SCH (10:15)
[2022-05-11] MEDS ORDERED: Acetaminophen 500 MG TAB ONE (10:35)
[2022-05-11] MEDS ORDERED: Ondansetron HCl/PF 10 MG in Sodium Chloride 0.9% 50 ML IVPB SCH (11:00)
[2022-05-11 17:19] VITALS: TEMP 97.9
[2022-05-11 17:20] VITALS: BP 127/55
== END 2022-05-11 17:20 | disposition home or self-care (01) ==
LOC: ONC/OP 09:14
PROVIDERS: ATTEND Internal Medicine Hematology & Oncology
PROC: 30233N1 Transfusion of Nonautologous Red Blood Cells into Peripheral Vein, Percutaneous Approach (ICD-10-PCS; principal; 2022-05-11)
PROC: 30233R1 Transfusion of Nonautologous Platelets into Peripheral Vein, Percutaneous Approach (ICD-10-PCS; principal; 2022-05-11)
DX: D64.9 Anemia, unspecified (principal); D69.6 Thrombocytopenia, unspecified
CPT/HCPCS: 36430; 86850; 86900; 86901; J1642; J2405; P9016; P9035; P9040

== ENCOUNTER 2022-05-15 12:02 | Day surgery (SDC) | payer OTHER ==
[2022-05-15] MEDS ORDERED: diphenhydrAMINE 25 MG CAP PO SCH (12:30)
[2022-05-15] MEDS ORDERED: Acetaminophen 500 MG TAB PO SCH (12:30)
[2022-05-15] MEDS ORDERED: Acetaminophen 500 MG TAB ONE (12:40)
[2022-05-15 15:51] VITALS: TEMP 97.9
[2022-05-15 15:55] VITALS: BP 111/53
== END 2022-05-15 14:50 | disposition home or self-care (01) ==
LOC: ONC/OP 12:02
PROVIDERS: ATTEND Internal Medicine Hematology & Oncology
PROC: 30233R1 Transfusion of Nonautologous Platelets into Peripheral Vein, Percutaneous Approach (ICD-10-PCS; principal; 2022-05-15)
DX: D69.6 Thrombocytopenia, unspecified (principal); D64.9 Anemia, unspecified
CPT/HCPCS: 36430; 86900; 86901; J1642; P9035

== ENCOUNTER 2022-05-16 10:21 | Day surgery (SDC) | payer OTHER ==
[2022-05-16] MEDS ORDERED: Acetaminophen 500 MG TAB ONE (10:35)
[2022-05-16 13:58] VITALS: BP 123/74; TEMP 97.5
== END 2022-05-16 13:45 | disposition home or self-care (01) ==
LOC: ONC/OP 10:21
PROVIDERS: ATTEND Internal Medicine Hematology & Oncology
PROC: 30233N1 Transfusion of Nonautologous Red Blood Cells into Peripheral Vein, Percutaneous Approach (ICD-10-PCS; principal; 2022-05-16)
DX: D64.9 Anemia, unspecified (principal); D69.6 Thrombocytopenia, unspecified
CPT/HCPCS: 36430; 86850; 86900; 86901; P9016; P9035

== ENCOUNTER 2022-05-19 10:45 | Day surgery (SDC) | payer OTHER ==
[2022-05-19] MEDS ORDERED: diphenhydrAMINE 25 MG CAP PO SCH (11:00)
[2022-05-19] MEDS ORDERED: Acetaminophen 500 MG TAB PO SCH (11:00)
[2022-05-19] MEDS ORDERED: Acetaminophen 500 MG TAB ONE (11:02)
[2022-05-19 13:07] VITALS: BP 140/66; TEMP 97.7
== END 2022-05-19 12:45 | disposition home or self-care (01) ==
LOC: ONC/OP 10:45
PROVIDERS: ATTEND Internal Medicine Hematology & Oncology
PROC: 30233R1 Transfusion of Nonautologous Platelets into Peripheral Vein, Percutaneous Approach (ICD-10-PCS; principal; 2022-05-19)
DX: D69.6 Thrombocytopenia, unspecified (principal); D64.9 Anemia, unspecified
CPT/HCPCS: 36430; 86850; 86900; 86901; J1642; P9035

== ENCOUNTER 2022-05-29 09:06 | Day surgery (SDC) | payer OTHER, SELFPAY ==
[2022-05-29] MEDS ORDERED: diphenhydrAMINE 25 MG CAP PO SCH (09:45)
[2022-05-29] MEDS ORDERED: Acetaminophen 500 MG TAB ONE (09:45)
[2022-05-29] MEDS ORDERED: Acetaminophen 500 MG TAB PO SCH (09:45)
[2022-05-29 14:20] VITALS: BP 112/57; TEMP 98.1
== END 2022-05-29 14:25 | disposition home or self-care (01) ==
LOC: ONC/OP 09:06
PROVIDERS: ATTEND Internal Medicine Hematology & Oncology
PROC: 30233N1 Transfusion of Nonautologous Red Blood Cells into Peripheral Vein, Percutaneous Approach (ICD-10-PCS; principal; 2022-05-29)
PROC: 30233R1 Transfusion of Nonautologous Platelets into Peripheral Vein, Percutaneous Approach (ICD-10-PCS; principal; 2022-05-29)
DX: D64.9 Anemia, unspecified (principal); D69.6 Thrombocytopenia, unspecified
CPT/HCPCS: 36430; 86850; 86900; 86901; J1642; P9016; P9035

== ENCOUNTER 2022-06-01 08:53 | Day surgery (SDC) | payer OTHER ==
[2022-06-01] MEDS ORDERED: Acetaminophen 500 MG TAB ONE (09:11)
[2022-06-01] MEDS ORDERED: diphenhydrAMINE 25 MG CAP PO SCH (09:15)
[2022-06-01] MEDS ORDERED: Acetaminophen 500 MG TAB PO SCH (09:15)
[2022-06-01] MEDS ORDERED: Ondansetron 2MG/ML MDV 10 MG in Sodium Chloride 0.9% 50 ML IVPB SCH (09:30)
[2022-06-01 14:25] VITALS: BP 122/56; TEMP 98.5
== END 2022-06-01 14:22 | disposition home or self-care (01) ==
LOC: ONC/OP 08:53
PROVIDERS: ATTEND Internal Medicine Hematology & Oncology
PROC: 30233N1 Transfusion of Nonautologous Red Blood Cells into Peripheral Vein, Percutaneous Approach (ICD-10-PCS; principal; 2022-06-01)
PROC: 30233R1 Transfusion of Nonautologous Platelets into Peripheral Vein, Percutaneous Approach (ICD-10-PCS; principal; 2022-06-01)
DX: D64.9 Anemia, unspecified (principal); D69.6 Thrombocytopenia, unspecified
CPT/HCPCS: 36430; 86850; 86900; 86901; 96365; J1642; J2405; P9016; P9035

== ENCOUNTER 2022-06-05 10:03 | Day surgery (SDC) | payer OTHER ==
[2022-06-05] MEDS ORDERED: diphenhydrAMINE 25 MG CAP PO SCH (10:15)
[2022-06-05] MEDS ORDERED: Acetaminophen 500 MG TAB PO SCH (10:15)
[2022-06-05] MEDS ORDERED: Acetaminophen 500 MG TAB ONE (10:41)
[2022-06-05 13:21] VITALS: BP 103/48; TEMP 98.5
== END 2022-06-05 12:00 | disposition home or self-care (01) ==
LOC: ONC/OP 10:03
PROVIDERS: ATTEND Internal Medicine Hematology & Oncology
PROC: 30233R1 Transfusion of Nonautologous Platelets into Peripheral Vein, Percutaneous Approach (ICD-10-PCS; principal; 2022-06-05)
DX: D69.6 Thrombocytopenia, unspecified (principal); D64.9 Anemia, unspecified
CPT/HCPCS: 36430; 86850; 86900; 86901; J1642; P9035

== ENCOUNTER 2022-06-05 12:05 | Outpatient (CLI) | payer OTHER ==
[~2022-06-05 12:05] MED LIST changes: -Acetaminophen 500 MG TAB ONE; -Acetaminophen 500 MG TAB PO SCH; +Iopamidol 370 76% 100 ML VIAL ONE; -diphenhydrAMINE 25 MG CAP ONE; -diphenhydrAMINE 25 MG CAP PO SCH
== END 2022-06-05 12:06 | disposition home or self-care (01) ==
LOC: CT 12:05
PROVIDERS: ATTEND Internal Medicine Hematology & Oncology
DX: C83.33 Diffuse large B-cell lymphoma, intra-abdominal lymph nodes (principal); D46.Z Other myelodysplastic syndromes; R91.1 Solitary pulmonary nodule; J98.4 Other disorders of lung; K44.9 Diaphragmatic hernia without obstruction or gangrene; I70.0 Atherosclerosis of aorta; N28.9 Disorder of kidney and ureter, unspecified; R16.1 Splenomegaly, not elsewhere classified; K82.8 Other specified diseases of gallbladder; N32.89 Other specified disorders of bladder
CPT/HCPCS: 71260; 74177; Q9967

== ENCOUNTER 2022-06-08 09:47 | Day surgery (SDC) | payer OTHER ==
[2022-06-08] MEDS ORDERED: Acetaminophen 500 MG TAB PO SCH (10:15)
[2022-06-08] MEDS ORDERED: diphenhydrAMINE 25 MG CAP PO SCH (10:15)
[2022-06-08] MEDS ORDERED: Acetaminophen 500 MG TAB ONE (10:41)
[2022-06-08 16:54] VITALS: BP 127/63; TEMP 98.3
== END 2022-06-08 17:03 | disposition home or self-care (01) ==
LOC: ONC/OP 09:47
PROVIDERS: ATTEND Internal Medicine Hematology & Oncology
PROC: 30233N1 Transfusion of Nonautologous Red Blood Cells into Peripheral Vein, Percutaneous Approach (ICD-10-PCS; principal; 2022-06-08)
PROC: 30233R1 Transfusion of Nonautologous Platelets into Peripheral Vein, Percutaneous Approach (ICD-10-PCS; principal; 2022-06-08)
DX: D64.9 Anemia, unspecified (principal); D69.6 Thrombocytopenia, unspecified
CPT/HCPCS: 36430; 86850; 86900; 86901; J1642; P9016; P9035

== ENCOUNTER 2022-06-12 12:35 | Day surgery (SDC) | payer OTHER ==
[2022-06-12] MEDS ORDERED: Acetaminophen 500 MG TAB PO SCH (13:00)
[2022-06-12] MEDS ORDERED: diphenhydrAMINE 25 MG CAP PO SCH (13:00)
[2022-06-12] MEDS ORDERED: Acetaminophen 500 MG TAB ONE (13:08)
[2022-06-12 14:13] VITALS: BP 109/53; TEMP 98.1
== END 2022-06-12 14:13 | disposition home or self-care (01) ==
LOC: ONC/OP 12:35
PROVIDERS: ATTEND Internal Medicine Hematology & Oncology
PROC: 30233R1 Transfusion of Nonautologous Platelets into Peripheral Vein, Percutaneous Approach (ICD-10-PCS; principal; 2022-06-12)
DX: D69.6 Thrombocytopenia, unspecified (principal); D64.9 Anemia, unspecified
CPT/HCPCS: 36430; 86850; 86900; 86901; P9035

== ENCOUNTER 2022-06-15 10:39 | Day surgery (SDC) | payer OTHER ==
[2022-06-15] MEDS ORDERED: diphenhydrAMINE 25 MG CAP PO SCH (11:00)
[2022-06-15] MEDS ORDERED: Acetaminophen 500 MG TAB PO SCH (11:00)
[2022-06-15] MEDS ORDERED: Acetaminophen 500 MG TAB ONE (11:09)
[2022-06-15 12:34] VITALS: BP 137/59; TEMP 97.8
== END 2022-06-15 12:38 | disposition home or self-care (01) ==
LOC: ONC/OP 10:39
PROVIDERS: ATTEND Internal Medicine
PROC: 30233R1 Transfusion of Nonautologous Platelets into Peripheral Vein, Percutaneous Approach (ICD-10-PCS; principal; 2022-06-15)
DX: D69.6 Thrombocytopenia, unspecified (principal); D64.9 Anemia, unspecified
CPT/HCPCS: 36430; 86850; 86900; 86901; J1642; P9035

== ENCOUNTER 2022-06-19 12:10 | Emergency (ER) | payer OTHER, SELFPAY ==
[2022-06-19 14:14] LABS: Mean Corpuscular Hemoglobin 29.5 pg (27.0-31.0); Mean Corpuscular Volume 84.3 fl (78.0-98.0); Mean Platelet Volume 12.7 fL (7.4-10.4); Platelet Count 6 10x3/uL (130-400); RBC Distribution Width 12.5 % (11.5-14.5); Red Blood Cell (RBC) Count 2.38 mill/uL (4.20-5.40); White Blood Cell (WBC) Count 0.3 10x3/uL (4.8-10.8)
[2022-06-19 14:24] LABS: INR-International Normal Ratio 1.1; PTT 25.5 sec (22.9-36.1); Prothrombin Time 14.3 sec (12.0-14.7)
[2022-06-19 14:35] LABS: ALT (SGPT) 19 U/L (8-55); AST (SGOT) 53 U/L (5-34); Albumin 2.9 g/dL (3.4-4.8); Alkaline Phosphatase 222 U/L (40-110); Anion Gap 12 mmol/L (10-20); BUN (Urea Nitrogen) 16 mg/dL (9.8-20.1); Bilirubin, Total 1.5 mg/dL (0.2-1.2); Calc. Creatinine Clearance 0 mL/min (70-130); Calcium 8.1 mg/dL (7.8-10.44); Carbon Dioxide 26 mmol/L (23-31); Chloride 102 mmol/L (98-107); Estimated GFR 98; Globulin 2.1 g/dL (2.4-3.5); Glucose 111 mg/dL (80-115); Potassium 3.9 mmol/L (3.5-5.1); Sodium 136 mmol/L (136-145)
[2022-06-19 16:16] LABS: Bilirubin Negative (Negative); Blood, Urine Negative (Negative); Clarity Clear (Clear); Glucose, Urine (Dipstick) Normal (Negative); Ketone, Urine Negative (Negative); Leukocyte Negative Leu/uL (Negative); Nitrite Negative (Negative); Protein, Urine (Dipstick) Negative (Neg-Trace); Specific Gravity, Urine 1.015 (1.002-1.036)
[2022-06-19] MEDS ORDERED: HYDROcodone/Acetaminophen 10/325 mg Tablet ONE (16:40)
== END 2022-06-19 18:20 | disposition home or self-care (01) ==
LOC: ERS 12:10
DX: D69.6 Thrombocytopenia, unspecified (principal); D64.9 Anemia, unspecified; D72.819 Decreased white blood cell count, unspecified; J44.9 Chronic obstructive pulmonary disease, unspecified
CPT/HCPCS: 36415; 36430; 51701; 71045; 80053; 81003; 83605; 85025; 85610; 85730; 86850; 86900; 86901; 87040; 87077; 87086; 87149; 93005; P9016; P9035

== ENCOUNTER 2022-06-20 14:02 | Inpatient (IN) | payer OTHER ==
[2022-06-20 16:10] VITALS: BMI 22.0
[2022-06-20] MEDS ORDERED: Ondansetron PF 4 MG/2 ML Vial IVP PRN (16:25)
[2022-06-20 16:44] LABS: Hemoglobin 7.7 g/dL (12.0-16.0); Mean Corpuscular HGB CONC 35.7 g/dL (32.0-36.0); Mean Corpuscular Hemoglobin 30.3 pg (27.0-31.0); Mean Corpuscular Volume 84.8 fl (78.0-98.0); Mean Platelet Volume 9.4 fL (7.4-10.4); Platelet Count 13 10x3/uL (130-400); RBC Distribution Width 12.6 % (11.5-14.5); Red Blood Cell (RBC) Count 2.52 mill/uL (4.20-5.40); White Blood Cell (WBC) Count 0.3 10x3/uL (4.8-10.8)
[2022-06-20] MEDS ORDERED: Vancomycin 1.5 GRAM/300 ML BAG 1.5 GM in Premix Bag 1 BAG IVPB SCH (17:00)
[2022-06-20 17:05] LABS: ALT (SGPT) 19 U/L (8-55); AST (SGOT) 49 U/L (5-34); Alkaline Phosphatase 207 U/L (40-110); Anion Gap 14 mmol/L (10-20); BUN (Urea Nitrogen) 15 mg/dL (9.8-20.1); Bilirubin, Total 1.3 mg/dL (0.2-1.2); Calc. Creatinine Clearance 87 mL/min (70-130); Calcium 8.4 mg/dL (7.8-10.44); Carbon Dioxide 25 mmol/L (23-31); Chloride 102 mmol/L (98-107); Estimated GFR 97; Globulin 2.1 g/dL (2.4-3.5); Glucose 134 mg/dL (80-115); Potassium 3.9 mmol/L (3.5-5.1); Protein, Total 5.1 g/dL (5.8-8.1); Sodium 137 mmol/L (136-145)
[2022-06-20] MEDS: Potassium Chloride 20 MEQ TAB PO SCH (17:29)
[2022-06-20] MEDS: Gabapentin 300 MG CAP PO SCH (21:40)
[2022-06-20] MEDS: Voriconazole 50 MG TAB PO SCH (21:41)
[2022-06-20] MEDS: Senokot S 8.6-50 MG TAB PO SCH (21:41)
[2022-06-20] MEDS: Cefepime 2 GM in Sodium Chloride 0.9% 100 ML IVPB SCH (21:42)
[2022-06-21] MEDS: VANCOMYCIN 1.25 GM/250 ML BAG 1.25 GM in Premix Bag 1 BAG IVPB SCH ×2 (05:21→16:22)
[2022-06-21 06:06] LABS: Hemoglobin 7.1 g/dL (12.0-16.0); Mean Corpuscular HGB CONC 35.4 g/dL (32.0-36.0); Mean Corpuscular Hemoglobin 30.6 pg (27.0-31.0); Mean Corpuscular Volume 86.3 fl (78.0-98.0); Mean Platelet Volume 9.5 fL (7.4-10.4); Platelet Count 12 10x3/uL (130-400); RBC Distribution Width 12.6 % (11.5-14.5); Red Blood Cell (RBC) Count 2.32 mill/uL (4.20-5.40); White Blood Cell (WBC) Count 0.4 10x3/uL (4.8-10.8)
[2022-06-21 06:19] LABS: Anion Gap 12 mmol/L (10-20); BUN (Urea Nitrogen) 12 mg/dL (9.8-20.1); Calc. Creatinine Clearance 107 mL/min (70-130); Calcium 8.4 mg/dL (7.8-10.44); Carbon Dioxide 23 mmol/L (23-31); Chloride 106 mmol/L (98-107); Estimated GFR 102; Glucose 107 mg/dL (80-115); Potassium 4.4 mmol/L (3.5-5.1); Sodium 137 mmol/L (136-145)
[2022-06-21 06:21] LABS: Hypochromia SLIGHT = 6-15 cells (100X) (0-5/hpf); MDiff Complete? YES; Platelet Morphology Comment Appears Decreased
[2022-06-21] MEDS: Cefepime 2 GM in Sodium Chloride 0.9% 100 ML IVPB SCH ×2 (08:24→18:21)
[2022-06-21] MEDS: Citalopram 10 MG TAB PO SCH (08:25)
[2022-06-21] MEDS: Potassium Chloride 20 MEQ TAB PO SCH ×3 (08:25→16:10)
[2022-06-21] MEDS: Saccharomyces boulardii 250 MG CAP PO SCH (08:25)
[2022-06-21] MEDS: valACYclovir 500 MG TAB PO SCH (08:25)
[2022-06-21] MEDS: Gabapentin 300 MG CAP PO SCH ×3 (08:25→20:50)
[2022-06-21] MEDS: Voriconazole 50 MG TAB PO SCH ×2 (08:26→20:50)
[2022-06-21] MEDS: Polyethylene Glycol 3350 17 GM Packet PO SCH (08:26)
[2022-06-21] MEDS: Senokot S 8.6-50 MG TAB PO SCH ×2 (08:27→20:50)
[2022-06-21] MEDS: HYDROcodone/Acetaminophen 10/325 mg Tablet PO PRN (12:42)
[2022-06-21] MEDS ORDERED: Cefepime 2 GM in Sodium Chloride 0.9% 100 ML IVPB SCH (17:00)
[2022-06-22] MEDS: Cefepime 2 GM in Sodium Chloride 0.9% 100 ML IVPB SCH ×2 (01:14→09:50)
[2022-06-22 04:56] LABS: Hemoglobin 6.8 g/dL (12.0-16.0); Mean Corpuscular HGB CONC 35.2 g/dL (32.0-36.0); Mean Corpuscular Hemoglobin 30.3 pg (27.0-31.0); Mean Corpuscular Volume 85.9 fl (78.0-98.0); Mean Platelet Volume 13.6 fL (7.4-10.4); Platelet Count 7 10x3/uL (130-400); RBC Distribution Width 12.6 % (11.5-14.5); Red Blood Cell (RBC) Count 2.24 mill/uL (4.20-5.40); White Blood Cell (WBC) Count 0.4 10x3/uL (4.8-10.8)
[2022-06-22 05:12] LABS: Vancomycin, Trough 20.1 ug/mL
[2022-06-22 05:17] LABS: ALT (SGPT) 17 U/L (8-55); AST (SGOT) 27 U/L (5-34); Albumin 2.8 g/dL (3.4-4.8); Alkaline Phosphatase 203 U/L (40-110); Anion Gap 12 mmol/L (10-20); BUN (Urea Nitrogen) 15 mg/dL (9.8-20.1); Bilirubin, Total 1.5 mg/dL (0.2-1.2); CRP (Inflammatory) 6.91 mg/dL (= or < 0.5); Calc. Creatinine Clearance 91 mL/min (70-130); Calcium 8.6 mg/dL (7.8-10.44); Carbon Dioxide 23 mmol/L (23-31); Chloride 105 mmol/L (98-107); Estimated GFR 99; Globulin 2.2 g/dL (2.4-3.5); Glucose 128 mg/dL (80-115); Potassium 5.1 mmol/L (3.5-5.1); Sodium 135 mmol/L (136-145)
[2022-06-22] MEDS: VANCOMYCIN 1.25 GM/250 ML BAG 1.25 GM in Premix Bag 1 BAG IVPB SCH (05:26)
[2022-06-22] MEDS: Potassium Chloride 20 MEQ TAB PO SCH ×3 (08:20→17:23)
[2022-06-22] MEDS: Citalopram 10 MG TAB PO SCH (08:40)
[2022-06-22] MEDS: Cyanocobalamin (Vitamin B-12) 1,000 MCG TAB PO SCH (08:40)
[2022-06-22] MEDS: Folic Acid 1 MG TAB PO SCH (08:41)
[2022-06-22] MEDS: valACYclovir 500 MG TAB PO SCH (08:41)
[2022-06-22] MEDS: Gabapentin 300 MG CAP PO SCH ×3 (08:41→21:07)
[2022-06-22] MEDS: Senokot S 8.6-50 MG TAB PO SCH ×2 (08:42→21:07)
[2022-06-22] MEDS: Polyethylene Glycol 3350 17 GM Packet PO SCH (08:42)
[2022-06-22] MEDS: Voriconazole 50 MG TAB PO SCH ×2 (08:42→21:08)
[2022-06-22] MEDS: Saccharomyces boulardii 250 MG CAP PO SCH (08:42)
[2022-06-22] MEDS ORDERED: Non-Formulary Item 1 EACH (Cyanocobalamin (Vitamin B-12) [Vitamin B-12] 500 MCG Tablet) PO SCH (09:00)
[2022-06-22] MEDS: Acetaminophen 325 MG TAB PO PRN (12:24)
[2022-06-22] MEDS ORDERED: Activase 2 MG VIAL CATH SCH ×2 (15:15→21:30)
[2022-06-22 18:27] LABS: Hemoglobin 7.5 g/dL (12.0-16.0); Mean Corpuscular HGB CONC 34.3 g/dL (32.0-36.0); Mean Corpuscular Hemoglobin 29.4 pg (27.0-31.0); Mean Corpuscular Volume 85.6 fl (78.0-98.0); Mean Platelet Volume 8.8 fL (7.4-10.4); Platelet Count 15 10x3/uL (130-400); RBC Distribution Width 12.7 % (11.5-14.5); Red Blood Cell (RBC) Count 2.56 mill/uL (4.20-5.40); White Blood Cell (WBC) Count 0.3 10x3/uL (4.8-10.8)
[2022-06-23] MEDS: Cefepime 2 GM in Sodium Chloride 0.9% 100 ML IVPB SCH ×4 (00:27→15:13)
[2022-06-23] MEDS: VANCOMYCIN 1.25 GM/250 ML BAG 1.25 GM in Premix Bag 1 BAG IVPB SCH (01:08)
[2022-06-23 06:25] LABS: Hemoglobin 7.3 g/dL (12.0-16.0); Mean Corpuscular HGB CONC 35.3 g/dL (32.0-36.0); Mean Corpuscular Hemoglobin 30.1 pg (27.0-31.0); Mean Corpuscular Volume 85.2 fl (78.0-98.0); Mean Platelet Volume 8.8 fL (7.4-10.4); Platelet Count 13 10x3/uL (130-400); RBC Distribution Width 12.6 % (11.5-14.5); Red Blood Cell (RBC) Count 2.44 mill/uL (4.20-5.40); White Blood Cell (WBC) Count 0.3 10x3/uL (4.8-10.8)
[2022-06-23 06:44] LABS: ALT (SGPT) 11 U/L (8-55); AST (SGOT) 20 U/L (5-34); Albumin 2.7 g/dL (3.4-4.8); Alkaline Phosphatase 202 U/L (40-110); Anion Gap 11 mmol/L (10-20); BUN (Urea Nitrogen) 13 mg/dL (9.8-20.1); Calc. Creatinine Clearance 107 mL/min (70-130); Calcium 8.7 mg/dL (7.8-10.44); Carbon Dioxide 25 mmol/L (23-31); Chloride 106 mmol/L (98-107); Estimated GFR 102; Globulin 2.2 g/dL (2.4-3.5); Glucose 115 mg/dL (80-115); Magnesium 1.5 mg/dL (1.6-2.6); Protein, Total 4.9 g/dL (5.8-8.1); Sodium 137 mmol/L (136-145)
[2022-06-23] MEDS: Voriconazole 50 MG TAB PO SCH ×2 (08:24→21:59)
[2022-06-23] MEDS: Potassium Chloride 20 MEQ TAB PO SCH ×3 (08:25→16:29)
[2022-06-23] MEDS: Cyanocobalamin (Vitamin B-12) 1,000 MCG TAB PO SCH (08:25)
[2022-06-23] MEDS: Gabapentin 300 MG CAP PO SCH ×3 (08:25→21:58)
[2022-06-23] MEDS: Folic Acid 1 MG TAB PO SCH (08:25)
[2022-06-23] MEDS: Polyethylene Glycol 3350 17 GM Packet PO SCH (08:25)
[2022-06-23] MEDS: Senokot S 8.6-50 MG TAB PO SCH ×2 (08:25→21:58)
[2022-06-23] MEDS: valACYclovir 500 MG TAB PO SCH (08:25)
[2022-06-23] MEDS: Saccharomyces boulardii 250 MG CAP PO SCH (08:25)
[2022-06-23] MEDS: Citalopram 10 MG TAB PO SCH (08:30)
[2022-06-23] MEDS ORDERED: Linezolid 600 MG in Premix Bag 1 BAG IVPB SCH (09:00)
[2022-06-23] MEDS ORDERED: Gentamicin Sulfate 120 MG in Premix Bag 1 BAG IVPB SCH (09:00)
[2022-06-23] MEDS ORDERED: Magnesium Sulfate 3 GM in Sodium Chloride 0.9% 100 ML IVPB SCH (10:00)
[2022-06-23] MEDS ORDERED: VANCOMYCIN 1.25 GM/250 ML BAG 1.25 GM in Premix Bag 1 BAG IVPB SCH (14:00)
[2022-06-23] MEDS: Senokot 8.6 MG TAB PO SCH (21:59)
[2022-06-23] MEDS ORDERED: Meropenem 1 GM in Sodium Chloride 0.9% 100 ML IVPB SCH ×2 (22:00→23:00)
[2022-06-23] MEDS: DAPTOmycin 500 MG in Sodium Chloride 0.9% 100 ML IVPB SCH (22:34)
[2022-06-24 04:46] LABS: Hemoglobin 6.1 g/dL (12.0-16.0); Mean Corpuscular HGB CONC 38.1 g/dL (32.0-36.0); Mean Corpuscular Hemoglobin 32.4 pg (27.0-31.0); RBC Distribution Width 12.3 % (11.5-14.5); White Blood Cell (WBC) Count 0.3 10x3/uL (4.8-10.8)
[2022-06-24 05:07] LABS: ALT (SGPT) 10 U/L (8-55); AST (SGOT) 19 U/L (5-34); Albumin 2.8 g/dL (3.4-4.8); Alkaline Phosphatase 223 U/L (40-110); Anion Gap 14 mmol/L (10-20); BUN (Urea Nitrogen) 12 mg/dL (9.8-20.1); Bilirubin, Total 1.6 mg/dL (0.2-1.2); Calc. Creatinine Clearance 107 mL/min (70-130); Calcium 8.6 mg/dL (7.8-10.44); Carbon Dioxide 22 mmol/L (23-31); Chloride 103 mmol/L (98-107); Estimated GFR 102; Globulin 2.1 g/dL (2.4-3.5); Glucose 100 mg/dL (80-115); Magnesium 1.8 mg/dL (1.6-2.6); Potassium 4.8 mmol/L (3.5-5.1); Protein, Total 4.9 g/dL (5.8-8.1); Sodium 134 mmol/L (136-145)
[2022-06-24 05:25] LABS: Mean Platelet Volume 9.7 fL (7.4-10.4); Platelet Count 11 10x3/uL (130-400)
[2022-06-24] MEDS ORDERED: Polyethylene Glycol 3350 17 GM Packet PO SCH (09:00)
[2022-06-24] MEDS: Meropenem 1 GM in Sodium Chloride 0.9% 100 ML IVPB SCH ×2 (09:14→16:42)
[2022-06-24] MEDS: HYDROcodone/Acetaminophen 10/325 mg Tablet PO PRN ×2 (09:21→18:23)
[2022-06-24] MEDS: Saccharomyces boulardii 250 MG CAP PO SCH (09:29)
[2022-06-24] MEDS: Gabapentin 300 MG CAP PO SCH ×3 (09:29→21:10)
[2022-06-24] MEDS: Senokot 8.6 MG TAB PO SCH (09:29)
[2022-06-24] MEDS: Potassium Chloride 20 MEQ TAB PO SCH ×3 (09:29→18:19)
[2022-06-24] MEDS: valACYclovir 500 MG TAB PO SCH (09:30)
[2022-06-24] MEDS: Folic Acid 1 MG TAB PO SCH (09:30)
[2022-06-24] MEDS: Cyanocobalamin (Vitamin B-12) 1,000 MCG TAB PO SCH (09:30)
[2022-06-24] MEDS: Citalopram 10 MG TAB PO SCH (09:30)
[2022-06-24] MEDS: Senokot S 8.6-50 MG TAB PO SCH ×2 (09:31→21:11)
[2022-06-24] MEDS: Voriconazole 50 MG TAB PO SCH ×2 (09:42→21:12)
[2022-06-24] MEDS: Polyethylene Glycol 3350 17 GM Packet PO SCH (10:41)
[2022-06-24 18:42] LABS: Hemoglobin 8.7 g/dL (12.0-16.0)
[2022-06-24] MEDS: DAPTOmycin 500 MG in Sodium Chloride 0.9% 100 ML IVPB SCH (22:14)
[2022-06-25] MEDS: Meropenem 1 GM in Sodium Chloride 0.9% 100 ML IVPB SCH ×3 (00:17→16:26)
[2022-06-25 05:58] LABS: Anion Gap 10 mmol/L (10-20); BUN (Urea Nitrogen) 16 mg/dL (9.8-20.1); CK (CPK) Less than 9 U/L (29-168); Calc. Creatinine Clearance 103 mL/min (70-130); Calcium 8.8 mg/dL (7.8-10.44); Carbon Dioxide 26 mmol/L (23-31); Chloride 103 mmol/L (98-107); Estimated GFR 102; Glucose 110 mg/dL (80-115); Potassium 5.1 mmol/L (3.5-5.1); Sodium 134 mmol/L (136-145)
[2022-06-25 06:01] LABS: Hemoglobin 8.3 g/dL (12.0-16.0); Mean Corpuscular HGB CONC 36.3 g/dL (32.0-36.0); Mean Corpuscular Hemoglobin 29.8 pg (27.0-31.0); Mean Corpuscular Volume 82.1 fl (78.0-98.0); Platelet Count 8 10x3/uL (130-400); Platelet Morphology Comment Appears Decreased; RBC Distribution Width 13.6 % (11.5-14.5); Red Blood Cell (RBC) Count 2.77 mill/uL (4.20-5.40); White Blood Cell (WBC) Count 0.3 10x3/uL (4.8-10.8)
[2022-06-25] MEDS: Citalopram 10 MG TAB PO SCH (07:51)
[2022-06-25] MEDS: valACYclovir 500 MG TAB PO SCH (07:51)
[2022-06-25] MEDS: Voriconazole 50 MG TAB PO SCH ×2 (07:52→21:26)
[2022-06-25] MEDS: Gabapentin 300 MG CAP PO SCH ×3 (08:05→23:51)
[2022-06-25] MEDS: Potassium Chloride 20 MEQ TAB PO SCH ×3 (08:05→18:53)
[2022-06-25] MEDS: Cyanocobalamin (Vitamin B-12) 1,000 MCG TAB PO SCH (08:05)
[2022-06-25] MEDS: Folic Acid 1 MG TAB PO SCH (08:05)
[2022-06-25] MEDS: Senokot S 8.6-50 MG TAB PO SCH ×2 (08:06→21:27)
[2022-06-25] MEDS: Polyethylene Glycol 3350 17 GM Packet PO SCH (08:06)
[2022-06-25] MEDS: Saccharomyces boulardii 250 MG CAP PO SCH (08:06)
[2022-06-25] MEDS ORDERED: Lidocaine 1% (PF) 30 ML VIAL NERVE BLCK SCH (13:15)
[2022-06-25] MEDS: DAPTOmycin 500 MG in Sodium Chloride 0.9% 100 ML IVPB SCH (21:25)
[2022-06-25] MEDS: Acetaminophen 325 MG TAB PO PRN (21:27)
[2022-06-26] MEDS: Meropenem 1 GM in Sodium Chloride 0.9% 100 ML IVPB SCH ×3 (00:21→15:39)
[2022-06-26] MEDS: HYDROcodone/Acetaminophen 10/325 mg Tablet PO PRN (03:43)
[2022-06-26 05:46] LABS: Hemoglobin 7.8 g/dL (12.0-16.0); Mean Corpuscular HGB CONC 35.9 g/dL (32.0-36.0); Mean Corpuscular Hemoglobin 29.3 pg (27.0-31.0); Mean Corpuscular Volume 81.7 fl (78.0-98.0); Mean Platelet Volume 10.3 fL (7.4-10.4); Platelet Count 16 10x3/uL (130-400); RBC Distribution Width 13.1 % (11.5-14.5); Red Blood Cell (RBC) Count 2.64 mill/uL (4.20-5.40); White Blood Cell (WBC) Count 0.4 10x3/uL (4.8-10.8)
[2022-06-26 06:02] LABS: ALT (SGPT) 8 U/L (8-55); AST (SGOT) 21 U/L (5-34); Albumin 2.9 g/dL (3.4-4.8); Alkaline Phosphatase 259 U/L (40-110); Anion Gap 13 mmol/L (10-20); BUN (Urea Nitrogen) 16 mg/dL (9.8-20.1); Bilirubin, Total 1.4 mg/dL (0.2-1.2); Calc. Creatinine Clearance 109 mL/min (70-130); Calcium 8.9 mg/dL (7.8-10.44); Carbon Dioxide 25 mmol/L (23-31); Chloride 103 mmol/L (98-107); Estimated GFR 103; Globulin 2.3 g/dL (2.4-3.5); Glucose 104 mg/dL (80-115); Potassium 4.5 mmol/L (3.5-5.1); Protein, Total 5.2 g/dL (5.8-8.1); Sodium 136 mmol/L (136-145)
[2022-06-26] MEDS: Voriconazole 50 MG TAB PO SCH ×2 (09:05→21:11)
[2022-06-26] MEDS: Citalopram 10 MG TAB PO SCH (09:07)
[2022-06-26] MEDS: Folic Acid 1 MG TAB PO SCH (09:07)
[2022-06-26] MEDS: valACYclovir 500 MG TAB PO SCH (09:09)
[2022-06-26] MEDS: Saccharomyces boulardii 250 MG CAP PO SCH (09:09)
[2022-06-26] MEDS: Potassium Chloride 20 MEQ TAB PO SCH ×3 (09:09→17:09)
[2022-06-26] MEDS: Gabapentin 300 MG CAP PO SCH ×3 (09:09→22:12)
[2022-06-26] MEDS: Senokot S 8.6-50 MG TAB PO SCH ×2 (09:11→21:11)
[2022-06-26] MEDS: Polyethylene Glycol 3350 17 GM Packet PO SCH (09:12)
[2022-06-26] MEDS: Cyanocobalamin (Vitamin B-12) 1,000 MCG TAB PO SCH (09:12)
[2022-06-26] MEDS: DAPTOmycin 500 MG in Sodium Chloride 0.9% 100 ML IVPB SCH (21:11)
[2022-06-27] MEDS: Meropenem 1 GM in Sodium Chloride 0.9% 100 ML IVPB SCH ×2 (01:07→16:15)
[2022-06-27 06:41] LABS: Anion Gap 11 mmol/L (10-20); BUN (Urea Nitrogen) 15 mg/dL (9.8-20.1); Calc. Creatinine Clearance 115 mL/min (70-130); Carbon Dioxide 26 mmol/L (23-31); Chloride 101 mmol/L (98-107); Estimated GFR 104; Glucose 108 mg/dL (80-115); Potassium 4.8 mmol/L (3.5-5.1); Sodium 133 mmol/L (136-145)
[2022-06-27 06:55] LABS: Hemoglobin 6.9 g/dL (12.0-16.0); Mean Corpuscular Hemoglobin 30.5 pg (27.0-31.0); Mean Corpuscular Volume 82.5 fl (78.0-98.0); Mean Platelet Volume 10.1 fL (7.4-10.4); Platelet Count 12 10x3/uL (130-400); Platelet Morphology Comment Appears Decreased; RBC Distribution Width 12.8 % (11.5-14.5); Red Blood Cell (RBC) Count 2.26 mill/uL (4.20-5.40); White Blood Cell (WBC) Count 0.4 10x3/uL (4.8-10.8)
[2022-06-27] MEDS: Cyanocobalamin (Vitamin B-12) 1,000 MCG TAB PO SCH (09:16)
[2022-06-27] MEDS: Citalopram 10 MG TAB PO SCH (09:16)
[2022-06-27] MEDS: Folic Acid 1 MG TAB PO SCH (09:16)
[2022-06-27] MEDS: Potassium Chloride 20 MEQ TAB PO SCH ×3 (09:16→20:50)
[2022-06-27] MEDS: Gabapentin 300 MG CAP PO SCH ×3 (09:16→20:47)
[2022-06-27] MEDS: Senokot S 8.6-50 MG TAB PO SCH ×2 (09:17→20:48)
[2022-06-27] MEDS: Saccharomyces boulardii 250 MG CAP PO SCH (09:17)
[2022-06-27] MEDS: Voriconazole 50 MG TAB PO SCH ×2 (09:17→20:48)
[2022-06-27] MEDS: valACYclovir 500 MG TAB PO SCH (09:17)
[2022-06-27] MEDS: Polyethylene Glycol 3350 17 GM Packet PO SCH (09:17)
[2022-06-27] MEDS: HYDROcodone/Acetaminophen 10/325 mg Tablet PO PRN (16:25)
[2022-06-27] MEDS: cefTRIAXone\\ROCEPHIN 2 GM in Sodium Chloride 0.9% 100 ML IVPB SCH (20:49)
[2022-06-28 05:26] LABS: Hemoglobin 9.2 g/dL (12.0-16.0); Mean Corpuscular HGB CONC 36.8 g/dL (32.0-36.0); Mean Corpuscular Volume 84.2 fl (78.0-98.0); Mean Platelet Volume 10.1 fL (7.4-10.4); Platelet Count 17 10x3/uL (130-400); RBC Distribution Width 13.8 % (11.5-14.5); Red Blood Cell (RBC) Count 2.97 mill/uL (4.20-5.40); White Blood Cell (WBC) Count 0.4 10x3/uL (4.8-10.8)
[2022-06-28 05:37] LABS: ALT (SGPT) 9 U/L (8-55); AST (SGOT) 30 U/L (5-34); Albumin 2.8 g/dL (3.4-4.8); Alkaline Phosphatase 283 U/L (40-110); Anion Gap 13 mmol/L (10-20); BUN (Urea Nitrogen) 15 mg/dL (9.8-20.1); Bilirubin, Total 1.7 mg/dL (0.2-1.2); Calc. Creatinine Clearance 122 mL/min (70-130); Calcium 8.8 mg/dL (7.8-10.44); Carbon Dioxide 23 mmol/L (23-31); Chloride 102 mmol/L (98-107); Estimated GFR 106; Globulin 2.2 g/dL (2.4-3.5); Glucose 112 mg/dL (80-115); Potassium 4.8 mmol/L (3.5-5.1); Sodium 133 mmol/L (136-145)
[2022-06-28] MEDS: Voriconazole 50 MG TAB PO SCH ×2 (08:10→21:03)
[2022-06-28] MEDS: cefTRIAXone\\ROCEPHIN 2 GM in Sodium Chloride 0.9% 100 ML IVPB SCH ×2 (08:11→20:58)
[2022-06-28] MEDS: valACYclovir 500 MG TAB PO SCH (08:12)
[2022-06-28] MEDS: Cyanocobalamin (Vitamin B-12) 1,000 MCG TAB PO SCH (08:12)
[2022-06-28] MEDS: Potassium Chloride 20 MEQ TAB PO SCH ×3 (08:12→17:25)
[2022-06-28] MEDS: Saccharomyces boulardii 250 MG CAP PO SCH (08:12)
[2022-06-28] MEDS: Polyethylene Glycol 3350 17 GM Packet PO SCH (08:13)
[2022-06-28] MEDS: Citalopram 10 MG TAB PO SCH (08:13)
[2022-06-28] MEDS: Senokot S 8.6-50 MG TAB PO SCH ×2 (08:13→21:02)
[2022-06-28] MEDS: Folic Acid 1 MG TAB PO SCH (08:13)
[2022-06-28] MEDS: Gabapentin 300 MG CAP PO SCH ×3 (08:13→21:00)
[2022-06-29] MEDS: HYDROcodone/Acetaminophen 10/325 mg Tablet PO PRN ×2 (00:39→21:08)
[2022-06-29 06:26] LABS: Hemoglobin 8.8 g/dL (12.0-16.0); Mean Corpuscular HGB CONC 37.2 g/dL (32.0-36.0); Mean Corpuscular Hemoglobin 31.9 pg (27.0-31.0); Mean Corpuscular Volume 85.7 fl (78.0-98.0); RBC Distribution Width 13.6 % (11.5-14.5); Red Blood Cell (RBC) Count 2.76 mill/uL (4.20-5.40); White Blood Cell (WBC) Count 0.4 10x3/uL (4.8-10.8)
[2022-06-29 06:32] LABS: ALT (SGPT) 10 U/L (8-55); AST (SGOT) 31 U/L (5-34); Albumin 2.7 g/dL (3.4-4.8); Alkaline Phosphatase 315 U/L (40-110); Anion Gap 12 mmol/L (10-20); BUN (Urea Nitrogen) 18 mg/dL (9.8-20.1); Bilirubin, Total 0.7 mg/dL (0.2-1.2); Calc. Creatinine Clearance 93 mL/min (70-130); Calcium 8.7 mg/dL (7.8-10.44); Carbon Dioxide 24 mmol/L (23-31); Chloride 103 mmol/L (98-107); Estimated GFR 99; Globulin 2.1 g/dL (2.4-3.5); Glucose 161 mg/dL (80-115); Potassium 5.2 mmol/L (3.5-5.1); Protein, Total 4.8 g/dL (5.8-8.1); Sodium 134 mmol/L (136-145)
[2022-06-29 06:33] LABS: Mean Platelet Volume 11.6 fL (7.4-10.4); Platelet Count 5 10x3/uL (130-400); Platelet Morphology Comment Appears Decreased
[2022-06-29] MEDS: Voriconazole 50 MG TAB PO SCH ×2 (08:55→21:08)
[2022-06-29] MEDS: Senokot S 8.6-50 MG TAB PO SCH ×2 (08:56→21:07)
[2022-06-29] MEDS: Potassium Chloride 20 MEQ TAB PO SCH ×3 (08:56→17:44)
[2022-06-29] MEDS: Saccharomyces boulardii 250 MG CAP PO SCH (08:56)
[2022-06-29] MEDS: Gabapentin 300 MG CAP PO SCH ×3 (08:56→21:07)
[2022-06-29] MEDS: Cyanocobalamin (Vitamin B-12) 1,000 MCG TAB PO SCH (08:56)
[2022-06-29] MEDS: Folic Acid 1 MG TAB PO SCH (08:57)
[2022-06-29] MEDS: cefTRIAXone\\ROCEPHIN 2 GM in Sodium Chloride 0.9% 100 ML IVPB SCH ×2 (08:57→21:06)
[2022-06-29] MEDS: valACYclovir 500 MG TAB PO SCH (08:57)
[2022-06-29] MEDS: Citalopram 10 MG TAB PO SCH (08:57)
[2022-06-29] MEDS: Polyethylene Glycol 3350 17 GM Packet PO SCH (08:58)
[2022-06-30 05:36] LABS: Hemoglobin 7.9 g/dL (12.0-16.0); Mean Corpuscular HGB CONC 36.2 g/dL (32.0-36.0); Mean Corpuscular Volume 85.7 fl (78.0-98.0); Mean Platelet Volume 8.6 fL (7.4-10.4); Platelet Count 19 10x3/uL (130-400); RBC Distribution Width 13.5 % (11.5-14.5); Red Blood Cell (RBC) Count 2.54 mill/uL (4.20-5.40); White Blood Cell (WBC) Count 0.3 10x3/uL (4.8-10.8)
[2022-06-30 05:55] LABS: ALT (SGPT) 14 U/L (8-55); AST (SGOT) 39 U/L (5-34); Albumin 2.6 g/dL (3.4-4.8); Alkaline Phosphatase 316 U/L (40-110); Anion Gap 11 mmol/L (10-20); BUN (Urea Nitrogen) 13 mg/dL (9.8-20.1); Bilirubin, Total 0.6 mg/dL (0.2-1.2); Calc. Creatinine Clearance 109 mL/min (70-130); Calcium 8.6 mg/dL (7.8-10.44); Carbon Dioxide 25 mmol/L (23-31); Chloride 105 mmol/L (98-107); Estimated GFR 103; Globulin 2.2 g/dL (2.4-3.5); Glucose 95 mg/dL (80-115); Potassium 5.3 mmol/L (3.5-5.1); Protein, Total 4.8 g/dL (5.8-8.1); Sodium 136 mmol/L (136-145)
[2022-06-30 06:02] LABS: Hypochromia SLIGHT = 6-15 cells (100X) (0-5/hpf); MDiff Complete? YES; Platelet Morphology Comment Appears Decreased
[2022-06-30] MEDS: cefTRIAXone\\ROCEPHIN 2 GM in Sodium Chloride 0.9% 100 ML IVPB SCH (09:04)
[2022-06-30] MEDS: Voriconazole 50 MG TAB PO SCH (09:17)
[2022-06-30] MEDS: Folic Acid 1 MG TAB PO SCH (09:17)
[2022-06-30] MEDS: Cyanocobalamin (Vitamin B-12) 1,000 MCG TAB PO SCH (09:17)
[2022-06-30] MEDS: Saccharomyces boulardii 250 MG CAP PO SCH (09:18)
[2022-06-30] MEDS: Gabapentin 300 MG CAP PO SCH ×2 (09:18→14:08)
[2022-06-30] MEDS: Citalopram 10 MG TAB PO SCH (09:18)
[2022-06-30] MEDS: Senokot S 8.6-50 MG TAB PO SCH (09:18)
[2022-06-30] MEDS: valACYclovir 500 MG TAB PO SCH (09:18)
[2022-06-30] MEDS: Polyethylene Glycol 3350 17 GM Packet PO SCH (09:21)
[2022-06-30 09:33] VITALS: BP 100/59
[2022-06-30] MEDS: Potassium Chloride 20 MEQ TAB PO SCH (09:39)
[2022-06-30 12:19] VITALS: TEMP 97.4
[2022-06-30] MEDS: HYDROcodone/Acetaminophen 10/325 mg Tablet PO PRN (14:09)
== END 2022-06-30 19:10 | disposition home or self-care (01) | DRG 314 ==
LOC: MSONC 15:05
PROVIDERS: ADMIT Family Medicine; ATTEND Internal Medicine
PROC: 0JPT0WZ Removal of Totally Implantable Vascular Access Device from Trunk Subcutaneous Tissue and Fascia, Open Approach (ICD-10-PCS; principal; 2022-06-25)
PROC: 02PYX3Z Removal of Infusion Device from Great Vessel, External Approach (ICD-10-PCS; 2022-06-25)
PROC: 02HV33Z Insertion of Infusion Device into Superior Vena Cava, Percutaneous Approach (ICD-10-PCS; 2022-06-30)
PROC: B5181ZA Fluoroscopy of Superior Vena Cava using Low Osmolar Contrast, Guidance (ICD-10-PCS; 2022-06-30)
PROC: B548ZZA Ultrasonography of Superior Vena Cava, Guidance (ICD-10-PCS; 2022-06-30)
DX: T80.211A Bloodstream infection due to central venous catheter, initial encounter (principal); A41.81 Sepsis due to Enterococcus; C83.30 Diffuse large B-cell lymphoma, unspecified site; D61.9 Aplastic anemia, unspecified; Z16.21 Resistance to vancomycin; Y83.8 Other surgical procedures as the cause of abnormal reaction of the patient, or of later complication, without mention of misadventure at the time of the procedure; D72.829 Elevated white blood cell count, unspecified; D46.9 Myelodysplastic syndrome, unspecified; J44.9 Chronic obstructive pulmonary disease, unspecified; D69.6 Thrombocytopenia, unspecified; G89.29 Other chronic pain; K21.9 Gastro-esophageal reflux disease without esophagitis; K59.00 Constipation, unspecified; F32.A Depression, unspecified; I10 Essential (primary) hypertension; M54.50 Low back pain, unspecified; E11.9 Type 2 diabetes mellitus without complications; M19.90 Unspecified osteoarthritis, unspecified site; Z79.899 Other long term (current) drug therapy
CPT/HCPCS: 36415; 36430; 36569; 80048; 80053; 80202; 82550; 83735; 84145; 85025; 86140; 86850; 86900; 86901; 87040; 87071; 87077; 87149; 87186; 93306; C1751; J0692; J0696; J0878; J1580; J2020; J2185; J2997; J3370; J3475; J3490; P9016; P9035

== ENCOUNTER 2022-07-03 11:45 | Day surgery (SDC) | payer OTHER ==
[2022-07-03] MEDS ORDERED: diphenhydrAMINE 25 MG CAP PO SCH (12:00)
[2022-07-03] MEDS ORDERED: Acetaminophen 500 MG TAB PO SCH (12:00)
[2022-07-03] MEDS ORDERED: Acetaminophen 500 MG TAB ONE (12:19)
[2022-07-03 16:00] VITALS: BP 134/60; TEMP 97.8
== END 2022-07-03 14:40 | disposition home or self-care (01) ==
LOC: ONC/OP 11:45
PROVIDERS: ATTEND Internal Medicine Hematology & Oncology
PROC: 30233R1 Transfusion of Nonautologous Platelets into Peripheral Vein, Percutaneous Approach (ICD-10-PCS; principal; 2022-07-03)
DX: D69.6 Thrombocytopenia, unspecified (principal); D64.9 Anemia, unspecified
CPT/HCPCS: 36430; 86850; 86900; 86901; P9035

== ENCOUNTER 2022-07-06 10:34 | Day surgery (SDC) | payer OTHER ==
[2022-07-06] MEDS ORDERED: Acetaminophen 500 MG TAB ONE (11:05)
[2022-07-06] MEDS ORDERED: Acetaminophen 500 MG TAB PO SCH (12:15)
[2022-07-06] MEDS ORDERED: diphenhydrAMINE 25 MG CAP PO SCH (12:15)
[2022-07-06 17:36] VITALS: BP 100/50; TEMP 98.1
== END 2022-07-06 17:40 | disposition home or self-care (01) ==
LOC: ONC/OP 10:34
PROVIDERS: ATTEND Internal Medicine Hematology & Oncology
DX: D64.9 Anemia, unspecified (principal); D69.6 Thrombocytopenia, unspecified
CPT/HCPCS: 36430; 86850; 86900; 86901; P9016; P9035

== ENCOUNTER 2022-07-10 09:53 | Day surgery (SDC) | payer OTHER ==
[2022-07-10] MEDS ORDERED: diphenhydrAMINE 25 MG CAP PO SCH (11:00)
[2022-07-10] MEDS ORDERED: Acetaminophen 500 MG TAB PO SCH (11:00)
[2022-07-10] MEDS ORDERED: Acetaminophen 500 MG TAB ONE (11:20)
[2022-07-10 13:19] VITALS: BP 108/54; TEMP 98.7
== END 2022-07-10 13:10 | disposition home or self-care (01) ==
LOC: ONC/OP 09:53
PROVIDERS: ATTEND Internal Medicine Hematology & Oncology
PROC: 30233R1 Transfusion of Nonautologous Platelets into Peripheral Vein, Percutaneous Approach (ICD-10-PCS; principal; 2022-07-10)
DX: D69.6 Thrombocytopenia, unspecified (principal); D64.9 Anemia, unspecified
CPT/HCPCS: 36430; 86850; 86900; 86901; J1642; P9035

== ENCOUNTER 2022-07-13 08:50 | Day surgery (SDC) | payer OTHER ==
[2022-07-13] MEDS ORDERED: diphenhydrAMINE 25 MG CAP PO SCH (09:15)
[2022-07-13] MEDS ORDERED: Acetaminophen 500 MG TAB PO SCH (09:15)
[2022-07-13] MEDS ORDERED: Acetaminophen 500 MG TAB ONE (10:00)
[2022-07-13 13:24] VITALS: BP 117/58; TEMP 98
== END 2022-07-13 13:26 | disposition home or self-care (01) ==
LOC: ONC/OP 08:50
PROVIDERS: ATTEND Internal Medicine Hematology & Oncology
DX: D64.9 Anemia, unspecified (principal); D69.6 Thrombocytopenia, unspecified
CPT/HCPCS: 36430; 86850; 86900; 86901; P9016; P9035

== ENCOUNTER 2022-07-17 08:57 | Day surgery (SDC) | payer OTHER ==
[2022-07-17] MEDS ORDERED: Acetaminophen 500 MG TAB PO SCH (09:15)
[2022-07-17] MEDS ORDERED: diphenhydrAMINE 25 MG CAP PO SCH (09:15)
[2022-07-17] MEDS ORDERED: Acetaminophen 500 MG TAB ONE (09:46)
[2022-07-17] MEDS ORDERED: Ondansetron 2MG/ML MDV 10 MG in Sodium Chloride 0.9% 50 ML IVPB SCH (11:00)
[2022-07-17 14:06] VITALS: BP 114/54; TEMP 98.1
== END 2022-07-17 16:24 | disposition home or self-care (01) ==
LOC: ONC/OP 08:57
PROVIDERS: ATTEND Internal Medicine Hematology & Oncology
PROC: 30233N1 Transfusion of Nonautologous Red Blood Cells into Peripheral Vein, Percutaneous Approach (ICD-10-PCS; principal; 2022-07-17)
PROC: 30233R1 Transfusion of Nonautologous Platelets into Peripheral Vein, Percutaneous Approach (ICD-10-PCS; principal; 2022-07-17)
DX: D64.9 Anemia, unspecified (principal); D69.6 Thrombocytopenia, unspecified
CPT/HCPCS: 36430; 86850; 86900; 86901; 96375; J2405; P9016; P9035

== ENCOUNTER 2022-07-20 09:08 | Day surgery (SDC) | payer OTHER ==
[2022-07-20] MEDS ORDERED: diphenhydrAMINE 25 MG CAP PO SCH (09:45)
[2022-07-20] MEDS ORDERED: Acetaminophen 500 MG TAB PO SCH (09:45)
[2022-07-20] MEDS ORDERED: Acetaminophen 500 MG TAB ONE (10:11)
[2022-07-20 11:14] VITALS: BP 114/55; TEMP 98.1
== END 2022-07-20 11:22 | disposition home or self-care (01) ==
LOC: ONC/OP 09:08
PROVIDERS: ATTEND Internal Medicine Hematology & Oncology
PROC: 30233R1 Transfusion of Nonautologous Platelets into Peripheral Vein, Percutaneous Approach (ICD-10-PCS; principal; 2022-07-20)
DX: D69.6 Thrombocytopenia, unspecified (principal); D64.9 Anemia, unspecified
CPT/HCPCS: 36430; 86850; 86900; 86901; P9035

== ENCOUNTER 2022-08-17 09:03 | Inpatient (IN) | payer OTHER ==
[2022-08-17] MEDS ORDERED: Ondansetron PF 4 MG/2 ML Vial ONE (09:51)
[2022-08-17] MEDS ORDERED: fentaNYL 50 mcg/mL 1 mL Vial ONE ×2 (09:51→14:43)
[2022-08-17 10:00] LABS: #Neutrophils 0.1 thou/uL (1.40-6.50); %Basophils 2.1 % (0.0-1.0); %Eosinophils 2.1 % (0.0-10.0); %Lymphocytes 62.5 % (21.0-51.0); %Monocytes 8.3 % (0.0-10.0); %Neutrophils 16.7 % (42.0-75.0); Hemoglobin 5.6 g/dL (12.0-16.0); Manual Diff?? YES; Mean Corpuscular HGB CONC 36.8 g/dL (32.0-36.0); Mean Corpuscular Hemoglobin 28.1 pg (27.0-31.0); Mean Corpuscular Volume 76.4 fl (78.0-98.0); Mean Platelet Volume 9.8 fL (7.4-10.4); RBC Distribution Width 12.7 % (11.5-14.5); Red Blood Cell (RBC) Count 1.99 mill/uL (4.20-5.40); White Blood Cell (WBC) Count 0.5 10x3/uL (4.8-10.8)
[2022-08-17 10:04] LABS: Platelet Count 19 10x3/uL (130-400)
[2022-08-17 10:12] LABS: ALT (SGPT) 21 U/L (8-55); AST (SGOT) 37 U/L (5-34); Alkaline Phosphatase 362 U/L (40-110); Anion Gap 11 mmol/L (10-20); BUN (Urea Nitrogen) 12 mg/dL (9.8-20.1); CK (CPK) 10 U/L (29-168); Calc. Creatinine Clearance 0 mL/min (70-130); Carbon Dioxide 27 mmol/L (23-31); Chloride 97 mmol/L (98-107); Estimated GFR 101; Globulin 2.5 g/dL (2.4-3.5); Glucose 149 mg/dL (80-115); Lipase Less than 4 U/L (8-78); Protein, Total 5.5 g/dL (5.8-8.1); Sodium 132 mmol/L (136-145)
[2022-08-17 10:15] LABS: Potassium 2.6 mmol/L (3.5-5.1)
[2022-08-17 10:22] LABS: INR-International Normal Ratio 1.2; PTT 32.5 sec (22.9-36.1); Prothrombin Time 15.2 sec (12.0-14.7)
[2022-08-17 10:23] LABS: D-Dimer Test 3.18 *mcg/mL (0.27-0.43)
[2022-08-17 10:44] LABS: Microcytosis SLIGHT = 6-15 cells (100X) (0-5/hpf); Ovalocytes SLIGHT = 2-5 cells (100X) (0-1/hpf); Polychromasia SLIGHT = 2-3 cells (100X) (0-2/hpf)
[2022-08-17 10:55] LABS: Bacteria/HPF None Seen HPF (None Seen); Bilirubin Negative (Negative); Blood, Urine Negative (Negative); CAUTI Indications for Culture Dysuria,urgency,freq; Clarity Clear (Clear); Glucose, Urine (Dipstick) Normal (Negative); Ketone, Urine Negative (Negative); Leukocyte Negative Leu/uL (Negative); Nitrite Negative (Negative); Protein, Urine (Dipstick) 10 mg/dL (Neg-Trace); RBC/HPF 0-3 HPF (0-3); Specific Gravity, Urine 1.017 (1.002-1.036); Squamous Epithelial None Seen HPF (0-3); Urobilinogen Normal mg/dL (Less than 2); WBC/HPF 0-3 HPF (0-3); pH, Urine 6.5 (5.0-9.0)
[2022-08-17 10:56] LABS: Urine Culture Reflex No No
[2022-08-17 11:13] LABS: Magnesium 1.1 mg/dL (1.6-2.6)
[2022-08-17] MEDS ORDERED: Potassium Chloride 20 MEQ/100 ML PREMIX BAG ONE (11:27)
[2022-08-17] MEDS ORDERED: Magnesium 2 GM/50 ML BAG (IN WATER) ONE (14:43)
[2022-08-17] MEDS ORDERED: Ondansetron PF 4 MG/2 ML Vial IVP PRN (14:59)
[2022-08-17] MEDS ORDERED: HYDROcodone/Acetaminophen 5/325 mg Tablet PO PRN (14:59)
[2022-08-17] MEDS ORDERED: Acetaminophen 325 MG TAB PO PRN (14:59)
[2022-08-17] MEDS ORDERED: Magnesium Sulfate In Water 4 GM in Premix Bag 1 BAG IVPB SCH (15:15)
[2022-08-17] MEDS ORDERED: Iopamidol 370 76% 100 ML VIAL ONE (15:33)
[2022-08-17 16:35] LABS: Hemoglobin 8.4 g/dL (12.0-16.0)
[2022-08-17 16:59] LABS: Magnesium 2.2 mg/dL (1.6-2.6); Potassium 3.4 mmol/L (3.5-5.1)
[2022-08-17] MEDS: Potassium Chloride 20 MEQ TAB PO SCH (18:39)
[2022-08-17 19:46] VITALS: BMI 22.4
[2022-08-17] MEDS: Gabapentin 300 MG CAP PO SCH (20:55)
[2022-08-18 06:33] LABS: Hemoglobin 7.6 g/dL (12.0-16.0); Manual Diff?? YES; Mean Corpuscular HGB CONC 36.5 g/dL (32.0-36.0); Mean Corpuscular Hemoglobin 28.7 pg (27.0-31.0); Mean Corpuscular Volume 78.5 fl (78.0-98.0); Mean Platelet Volume 8.9 fL (7.4-10.4); RBC Distribution Width 13.7 % (11.5-14.5); Red Blood Cell (RBC) Count 2.65 mill/uL (4.20-5.40); White Blood Cell (WBC) Count 0.5 10x3/uL (4.8-10.8)
[2022-08-18 06:34] LABS: Delete Auto Diff?? YES; Platelet Count 12 10x3/uL (130-400)
[2022-08-18 06:56] LABS: ALT (SGPT) 20 U/L (8-55); AST (SGOT) 34 U/L (5-34); Albumin 2.8 g/dL (3.4-4.8); Alkaline Phosphatase 351 U/L (40-110); Anion Gap 9 mmol/L (10-20); BUN (Urea Nitrogen) 12 mg/dL (9.8-20.1); Bilirubin, Total 2.1 mg/dL (0.2-1.2); Calc. Creatinine Clearance 100 mL/min (70-130); Calcium 8.4 mg/dL (7.8-10.44); Carbon Dioxide 28 mmol/L (23-31); Chloride 101 mmol/L (98-107); Estimated GFR 101; Globulin 2.4 g/dL (2.4-3.5); Glucose 120 mg/dL (80-115); Potassium 2.9 mmol/L (3.5-5.1); Protein, Total 5.2 g/dL (5.8-8.1); Sodium 135 mmol/L (136-145)
[2022-08-18 07:13] LABS: Band 10 % (5-11); CellaVision Operator ID LAB.GE; Eosinophils 2 % (0-10); Lymphocytes 51 % (21-51); Metamyelocyte 2 % (0-0); Microcytosis SLIGHT = 6-15 cells HPF (0-5); Monocytes 2 % (0-10); Myelocyte 1 % (0-0); Neutrophil 24 % (42-75); Platelet Adequacy Comment Significant decrease; Polychromasia SLIGHT = 2-3 cells HPF (0-2); Reactive Lymphocytes 5 % (0-10); Total Cell Count 84
[2022-08-18] MEDS ORDERED: Ipratropium/Albuterol 3 ML NEB NEB PRN (07:28)
[2022-08-18] MEDS ORDERED: Electrolyte Replacement Protocol 1 EACH FS SCH (07:30)
[2022-08-18] MEDS ORDERED: HYDROcodone/Acetaminophen 10/325 mg Tablet PO PRN ×2 (08:07)
[2022-08-18] MEDS: Gabapentin 300 MG CAP PO SCH ×3 (09:48→21:29)
[2022-08-18] MEDS: Folic Acid 1 MG TAB PO SCH (09:48)
[2022-08-18] MEDS: valACYclovir 500 MG TAB PO SCH (09:49)
[2022-08-18] MEDS: Citalopram 10 MG TAB PO SCH (09:49)
[2022-08-18] MEDS: Senokot S 8.6-50 MG TAB PO SCH ×2 (09:49→21:29)
[2022-08-18] MEDS: Potassium Chloride 20 MEQ TAB PO SCH ×3 (09:49→15:23)
[2022-08-18] MEDS: Polyethylene Glycol 3350 17 GM Packet PO SCH (09:51)
[2022-08-18] MEDS: Voriconazole 50 MG TAB PO SCH ×2 (09:53→21:29)
[2022-08-19 05:11] LABS: Manual Diff?? YES; Mean Corpuscular HGB CONC 36.5 g/dL (32.0-36.0); Mean Corpuscular Volume 79.7 fl (78.0-98.0); RBC Distribution Width 13.8 % (11.5-14.5); Red Blood Cell (RBC) Count 2.41 mill/uL (4.20-5.40)
[2022-08-19 05:28] LABS: Anion Gap 9 mmol/L (10-20); BUN (Urea Nitrogen) 14 mg/dL (9.8-20.1); Calc. Creatinine Clearance 90 mL/min (70-130); Calcium 8.6 mg/dL (7.8-10.44); Carbon Dioxide 26 mmol/L (23-31); Chloride 102 mmol/L (98-107); Estimated GFR 99; Glucose 108 mg/dL (80-115); Potassium 3.8 mmol/L (3.5-5.1); Sodium 133 mmol/L (136-145)
[2022-08-19 05:54] LABS: Delete Auto Diff?? YES; Platelet Count 24 10x3/uL (130-400)
[2022-08-19 07:06] LABS: Band 11 % (5-11); CellaVision Operator ID LAB.JMM; Lymphocytes 61 % (21-51); Myelocyte 2 % (0-0); Neutrophil 22 % (42-75); Platelet Adequacy Comment Platelets Decreased; RBC Morphology Within Normal Limits; Total Cell Count 104
[2022-08-19 07:09] LABS: White Blood Cell (WBC) Count 0.6 10x3/uL (4.8-10.8)
[2022-08-19] MEDS: Folic Acid 1 MG TAB PO SCH (09:20)
[2022-08-19] MEDS: Senokot S 8.6-50 MG TAB PO SCH (09:20)
[2022-08-19] MEDS: Polyethylene Glycol 3350 17 GM Packet PO SCH (09:20)
[2022-08-19] MEDS: Gabapentin 300 MG CAP PO SCH (09:20)
[2022-08-19] MEDS: Citalopram 10 MG TAB PO SCH (09:20)
[2022-08-19] MEDS: Voriconazole 50 MG TAB PO SCH (09:21)
[2022-08-19] MEDS: valACYclovir 500 MG TAB PO SCH (09:21)
[2022-08-19 12:39] VITALS: BP 118/56; TEMP 97.5
== END 2022-08-19 16:49 | disposition home or self-care (01) | DRG 809 ==
LOC: SUATTDRO 09:03 → ERS 09:03 → EDBD 09:03 → 2NO 18:09
PROVIDERS: ADMIT Internal Medicine; ATTEND Family Medicine
PROC: 30233N1 Transfusion of Nonautologous Red Blood Cells into Peripheral Vein, Percutaneous Approach (ICD-10-PCS; principal; 2022-08-17)
PROC: 30233R1 Transfusion of Nonautologous Platelets into Peripheral Vein, Percutaneous Approach (ICD-10-PCS; 2022-08-17)
DX: D61.818 Other pancytopenia (principal); C83.30 Diffuse large B-cell lymphoma, unspecified site; E87.1 Hypo-osmolality and hyponatremia; D46.9 Myelodysplastic syndrome, unspecified; Z79.899 Other long term (current) drug therapy; N93.9 Abnormal uterine and vaginal bleeding, unspecified; E87.6 Hypokalemia; E83.42 Hypomagnesemia; J44.9 Chronic obstructive pulmonary disease, unspecified; F39 Unspecified mood [affective] disorder; G89.29 Other chronic pain; D62 Acute posthemorrhagic anemia; K21.9 Gastro-esophageal reflux disease without esophagitis
CPT/HCPCS: 36430; 51701; 71045; 74177; 80048; 80053; 81001; 83605; 83690; 83735; 83880; 84484; 85025; 85379; 85384; 85610; 85730; 86850; 86900; 86901; 93005; 96365; 96366; 96368; 96375; 96376; J2405; J3010; J3475; J3480; P9016; P9035; Q9967

== ENCOUNTER 2022-08-23 10:32 | Day surgery (SDC) | payer OTHER ==
[2022-08-23] MEDS ORDERED: Acetaminophen 500 MG TAB PO SCH (11:00)
[2022-08-23] MEDS ORDERED: diphenhydrAMINE 25 MG CAP PO SCH (11:00)
[2022-08-23] MEDS ORDERED: Ondansetron HCl/PF 10 MG in Sodium Chloride 0.9% 50 ML IVPB SCH (11:15)
[2022-08-23] MEDS ORDERED: Ondansetron 2MG/ML MDV 10 MG in Sodium Chloride 0.9% 50 ML IVPB SCH (11:15)
[2022-08-23] MEDS ORDERED: Acetaminophen 500 MG TAB ONE (11:39)
[2022-08-23 13:14] VITALS: BP 140/65; TEMP 98.1
== END 2022-08-23 13:28 | disposition home or self-care (01) ==
LOC: ONC/OP 10:32
PROVIDERS: ATTEND Internal Medicine Hematology & Oncology
DX: D64.9 Anemia, unspecified (principal); D69.6 Thrombocytopenia, unspecified
CPT/HCPCS: 36430; 86850; 86900; 86901; J1642; J2405; P9035

== ENCOUNTER 2022-09-27 12:04 | Emergency (ER) | payer OTHER ==
[2022-09-27] MEDS ORDERED: Ondansetron PF 4 MG/2 ML Vial ONE (13:08)
[2022-09-27] MEDS ORDERED: Morphine 4 MG/ML VIAL ONE ×2 (13:08→20:02)
== END 2022-09-27 20:22 | disposition short-term general hospital (02) ==
LOC: ERS 12:04
DX: C85.90 Non-Hodgkin lymphoma, unspecified, unspecified site (principal)
CPT/HCPCS: 99284; J2270; J2405

== ENCOUNTER 2022-10-25 12:21 | Day surgery (SDC) | payer OTHER ==
[2022-10-25] MEDS ORDERED: Acetaminophen 500 MG TAB PO SCH (12:30)
[2022-10-25] MEDS ORDERED: diphenhydrAMINE 25 MG CAP PO SCH (12:30)
[2022-10-25 14:31] VITALS: BP 102/52; TEMP 97.8
== END 2022-10-25 14:28 | disposition home or self-care (01) ==
LOC: ONC/OP 12:21
PROVIDERS: ATTEND Internal Medicine Hematology & Oncology
DX: D64.9 Anemia, unspecified (principal); D69.6 Thrombocytopenia, unspecified
CPT/HCPCS: 36430; 86850; 86900; 86901; J1642; P9035

== ENCOUNTER 2022-10-30 11:57 | Day surgery (SDC) | payer OTHER ==
[2022-10-30] MEDS ORDERED: diphenhydrAMINE 25 MG CAP PO SCH (12:30)
[2022-10-30] MEDS ORDERED: Acetaminophen 500 MG TAB PO SCH (12:30)
[2022-10-30] MEDS ORDERED: Acetaminophen 500 MG TAB ONE (12:38)
[2022-10-30 18:51] VITALS: BP 138/83; TEMP 98.1
== END 2022-10-30 18:54 | disposition home or self-care (01) ==
LOC: ONC/OP 11:57
PROVIDERS: ATTEND Internal Medicine Hematology & Oncology
DX: D64.9 Anemia, unspecified (principal); D69.6 Thrombocytopenia, unspecified
CPT/HCPCS: 36430; 86850; 86900; 86901; P9016; P9035

== ENCOUNTER 2022-11-03 09:38 | Day surgery (SDC) | payer OTHER ==
[2022-11-03] MEDS ORDERED: Acetaminophen 500 MG TAB PO SCH (10:00)
[2022-11-03] MEDS ORDERED: diphenhydrAMINE 25 MG CAP PO SCH (10:00)
[2022-11-03 16:45] VITALS: BP 158/71; TEMP 98.1
== END 2022-11-03 16:47 | disposition home or self-care (01) ==
LOC: ONC/OP 09:38
PROVIDERS: ATTEND Internal Medicine Hematology & Oncology
DX: D64.9 Anemia, unspecified (principal); D69.59 Other secondary thrombocytopenia
CPT/HCPCS: 36430; 86850; 86900; 86901; 99211; G0463; P9016; P9035

== ENCOUNTER 2022-11-04 12:24 | Inpatient (IN) | payer OTHER ==
[2022-11-04] MEDS ORDERED: HYDROcodone/Acetaminophen 10/325 mg Tablet ONE (12:53)
[2022-11-04] MEDS ORDERED: fentaNYL 50 mcg/mL 1 mL Vial ONE (14:17)
[2022-11-04 14:18] LABS: Hematocrit 22.2 % (36.0-47.0); Mean Corpuscular Hemoglobin 28.7 pg (27.0-31.0); Mean Corpuscular Volume 79.6 fl (78.0-98.0); Mean Platelet Volume 8.4 fL (7.4-10.4); RBC Distribution Width 14.5 % (11.5-14.5); Red Blood Cell (RBC) Count 2.79 mill/uL (4.20-5.40); White Blood Cell (WBC) Count 0.4 10x3/uL (4.8-10.8)
[2022-11-04 14:20] LABS: Delete Auto Diff?? YES; Manual Diff?? YES; Platelet Count 31 10x3/uL (130-400)
[2022-11-04 14:27] LABS: INR-International Normal Ratio 1.1; PTT 32.2 sec (22.9-36.1); Prothrombin Time 14.8 sec (12.0-14.7)
[2022-11-04 14:41] LABS: ALT (SGPT) 9 U/L (8-55); AST (SGOT) 34 U/L (5-34); Albumin 2.4 g/dL (3.4-4.8); Alkaline Phosphatase 227 U/L (40-110); Anion Gap 13 mmol/L (10-20); BUN (Urea Nitrogen) 14 mg/dL (9.8-20.1); Calc. Creatinine Clearance 0 mL/min (70-130); Calcium 7.4 mg/dL (7.8-10.44); Carbon Dioxide 26 mmol/L (23-31); Chloride 102 mmol/L (98-107); Estimated GFR 102; Glucose 112 mg/dL (80-115); Potassium 2.7 mmol/L (3.5-5.1); Protein, Total 4.4 g/dL (5.8-8.1); Sodium 138 mmol/L (136-145)
[2022-11-04 14:43] LABS: Band 23 % (5-11); Blast 5 % (0-0); Burr Cells SLIGHT = 2-5 cells HPF (0-1); CellaVision Operator ID LAB.MJL; Eosinophils 2 % (0-10); Large Platelets 1.7 % (0-5); Lymphocytes 35 % (21-51); Metamyelocyte 3 % (0-0); Monocytes 3 % (0-10); Myelocyte 5 % (0-0); Neutrophil 22 % (42-75); Platelet Adequacy Comment Significant decrease; Polychromasia MODERATE = 3-4 cells HPF (0-2); Promyelocytes 2 % (0-0); Total Cell Count 60
[2022-11-04] MEDS ORDERED: Pot Chloride/Pot Bicarb/Cit Ac 25 mEq Effervescent Tablet ONE (15:09)
[2022-11-04] MEDS ORDERED: Ondansetron PF 4 MG/2 ML Vial IVP PRN (15:40)
[2022-11-04] MEDS ORDERED: Ipratropium/Albuterol 3 ML NEB NEB PRN (15:40)
[2022-11-04] MEDS ORDERED: Morphine 2 MG/ML VIAL SLOW IVP PRN (15:40)
[2022-11-04] MEDS ORDERED: Sodium Chloride 0.9% 1,000 ML IV SCH (15:45)
[2022-11-04] MEDS ORDERED: Magnesium 2 GM/50 ML(in water) 2 GM in Premix Bag 1 BAG IVPB SCH (16:00)
[2022-11-04] MEDS: Acetaminophen 325 MG TAB PO SCH ×3 (17:00→22:07)
[2022-11-04] MEDS: Potassium Chloride 20 MEQ in Premix Bag 1 BAG IVPB SCH ×2 (17:00→23:45)
[2022-11-04] MEDS: HYDROcodone/Acetaminophen 10/325 mg Tablet PO PRN (17:54)
[2022-11-04] MEDS: Famotidine/PF 20 mg/2ml Vial SLOW IVP SCH (20:14)
[2022-11-04] MEDS: Gabapentin 300 MG CAP PO SCH (20:14)
[2022-11-04] MEDS: Senokot S 8.6-50 MG TAB PO SCH (20:16)
[2022-11-04 23:06] LABS: Bilirubin Negative (Negative); Blood, Urine 3+ (Negative); Clarity Turbid (Clear); Glucose, Urine (Dipstick) Normal (Negative); Ketone, Urine Negative (Negative); Leukocyte Negative Leu/uL (Negative); Nitrite Negative (Negative); Protein, Urine (Dipstick) 20 mg/dL (Neg-Trace); RBC/HPF Greater than 50 HPF (0-3); Squamous Epithelial None Seen HPF (0-3); WBC/HPF 0-3 HPF (0-3); pH, Urine 7.5 (5.0-9.0)
[2022-11-04 23:15] LABS: Bacteria/HPF 3+ HPF (None Seen)
[2022-11-05] MEDS: Acetaminophen 325 MG TAB PO SCH ×5 (03:17→20:38)
[2022-11-05 04:17] LABS: #Monocytes 0.1 thou/uL (0.11-0.59); #Neutrophils 0.1 thou/uL (1.40-6.50); %Lymphocytes 41.4 % (21.0-51.0); %Monocytes 17.2 % (0.0-10.0); %Neutrophils 34.5 % (42.0-75.0); Hematocrit 18.9 % (36.0-47.0); Hemoglobin 6.8 g/dL (12.0-16.0); Mean Corpuscular Hemoglobin 29.1 pg (27.0-31.0); Mean Corpuscular Volume 80.8 fl (78.0-98.0); Mean Platelet Volume 10.1 fL (7.4-10.4); RBC Distribution Width 14.7 % (11.5-14.5); Red Blood Cell (RBC) Count 2.34 mill/uL (4.20-5.40); White Blood Cell (WBC) Count 0.3 10x3/uL (4.8-10.8)
[2022-11-05 04:20] LABS: Manual Diff?? YES; Platelet Count 60 10x3/uL (130-400)
[2022-11-05 04:27] LABS: INR-International Normal Ratio 1.1; PTT 33.7 sec (22.9-36.1); Prothrombin Time 14.5 sec (12.0-14.7)
[2022-11-05 04:36] LABS: Anion Gap 11 mmol/L (10-20); BUN (Urea Nitrogen) 13 mg/dL (9.8-20.1); Calc. Creatinine Clearance 110 mL/min (70-130); Calcium 7.6 mg/dL (7.8-10.44); Carbon Dioxide 27 mmol/L (23-31); Chloride 106 mmol/L (98-107); Estimated GFR 104; Glucose 82 mg/dL (80-115); Potassium 3.6 mmol/L (3.5-5.1); Sodium 140 mmol/L (136-145)
[2022-11-05 05:00] LABS: Anisocytosis SLIGHT = 6-15 cells HPF (0-5); Band 7 % (5-11); CellaVision Operator ID lab.sh2; Hypochromia SLIGHT = 6-15 cells HPF (0-5); Lymphocytes 46 % (21-51); Metamyelocyte 4 % (0-0); Monocytes 7 % (0-10); Myelocyte 2 % (0-0); Neutrophil 35 % (42-75); Platelet Adequacy Comment Significant decrease; Polychromasia SLIGHT = 2-3 cells HPF (0-2); Smudge Cells 1.8 %; Total Cell Count 57
[2022-11-05] MEDS: Famotidine/PF 20 mg/2ml Vial SLOW IVP SCH ×2 (09:13→20:39)
[2022-11-05] MEDS: Gabapentin 300 MG CAP PO SCH ×3 (09:13→20:38)
[2022-11-05] MEDS: Citalopram 10 MG TAB PO SCH (09:13)
[2022-11-05] MEDS: Folic Acid 1 MG TAB PO SCH (09:13)
[2022-11-05] MEDS: Senokot S 8.6-50 MG TAB PO SCH ×2 (09:14→20:39)
[2022-11-05] MEDS: Polyethylene Glycol 3350 17 GM Packet PO SCH (09:14)
[2022-11-05] MEDS: Promethazine 25 MG TAB PO SCH (09:14)
[2022-11-05] MEDS ORDERED: Lactated Ringer's 1,000 ML IV SCH (12:15)
[2022-11-05] MEDS: Ferrous Sulfate 325 MG TAB PO SCH (18:01)
[2022-11-05] MEDS: Ascorbic Acid 500 mg Chewable Tablet PO SCH (20:39)
[2022-11-06] MEDS: Acetaminophen 325 MG TAB PO SCH ×4 (03:36→22:53)
[2022-11-06 04:06] LABS: Hematocrit 24.5 % (36.0-47.0); Hemoglobin 8.7 g/dL (12.0-16.0); Mean Corpuscular HGB CONC 35.5 g/dL (32.0-36.0); Mean Corpuscular Hemoglobin 28.7 pg (27.0-31.0); Mean Corpuscular Volume 80.9 fl (78.0-98.0); Mean Platelet Volume 9.9 fL (7.4-10.4); RBC Distribution Width 14.7 % (11.5-14.5); Red Blood Cell (RBC) Count 3.03 mill/uL (4.20-5.40); White Blood Cell (WBC) Count 0.4 10x3/uL (4.8-10.8)
[2022-11-06 04:16] LABS: Platelet Count 50 10x3/uL (130-400)
[2022-11-06 04:17] LABS: Delete Auto Diff?? YES; Manual Diff?? YES
[2022-11-06 04:30] LABS: Anion Gap 11 mmol/L (10-20); BUN (Urea Nitrogen) 12 mg/dL (9.8-20.1); Calc. Creatinine Clearance 100 mL/min (70-130); Calcium 7.7 mg/dL (7.8-10.44); Carbon Dioxide 24 mmol/L (23-31); Chloride 103 mmol/L (98-107); Estimated GFR 103; Glucose 119 mg/dL (80-115); Potassium 3.4 mmol/L (3.5-5.1); Sodium 135 mmol/L (136-145)
[2022-11-06 05:10] LABS: Band 31 % (5-11); CellaVision Operator ID LAB.CLH1; Hypochromia SLIGHT = 6-15 cells HPF (0-5); Lymphocytes 29 % (21-51); Monocytes 7 % (0-10); Neutrophil 29 % (42-75); Other Cell Types 3.6; Platelet Adequacy Comment Platelets Decreased; Total Cell Count 55
[2022-11-06] MEDS: Promethazine 25 MG TAB PO SCH (08:28)
[2022-11-06] MEDS: Gabapentin 300 MG CAP PO SCH ×3 (08:28→20:29)
[2022-11-06] MEDS: Famotidine/PF 20 mg/2ml Vial SLOW IVP SCH ×2 (08:28→20:31)
[2022-11-06] MEDS: Ascorbic Acid 500 mg Chewable Tablet PO SCH ×2 (08:28→20:29)
[2022-11-06] MEDS: Ferrous Sulfate 325 MG TAB PO SCH ×2 (08:28→17:59)
[2022-11-06] MEDS: Folic Acid 1 MG TAB PO SCH (08:28)
[2022-11-06] MEDS: Citalopram 10 MG TAB PO SCH (08:28)
[2022-11-06] MEDS: Polyethylene Glycol 3350 17 GM Packet PO SCH (08:29)
[2022-11-06] MEDS: Senokot S 8.6-50 MG TAB PO SCH ×2 (08:29→20:29)
[2022-11-06] MEDS ORDERED: Amiodarone 450 MG in Dextrose 5% in Water 250 ML IVPB SCH (09:00)
[2022-11-06] MEDS: cefTRIAXone\\ROCEPHIN 2 GM in Sodium Chloride 0.9% 100 ML IVPB SCH (11:28)
[2022-11-07] MEDS: HYDROcodone/Acetaminophen 10/325 mg Tablet PO PRN (01:22)
[2022-11-07 04:15] LABS: #Neutrophils 0.1 thou/uL (1.40-6.50); Hematocrit 20.9 % (36.0-47.0); Hemoglobin 7.6 g/dL (12.0-16.0); Mean Corpuscular HGB CONC 36.4 g/dL (32.0-36.0); Mean Corpuscular Hemoglobin 29.6 pg (27.0-31.0); Mean Corpuscular Volume 81.3 fl (78.0-98.0); Mean Platelet Volume 9.6 fL (7.4-10.4); RBC Distribution Width 15.1 % (11.5-14.5); Red Blood Cell (RBC) Count 2.57 mill/uL (4.20-5.40); White Blood Cell (WBC) Count 0.3 10x3/uL (4.8-10.8)
[2022-11-07 04:16] LABS: Manual Diff?? YES; Platelet Count 30 10x3/uL (130-400)
[2022-11-07 04:42] LABS: Anisocytosis SLIGHT = 6-15 cells HPF (0-5); Band 6 % (5-11); Blast 3 % (0-0); CellaVision Operator ID lab.sh2; Lymphocytes 35 % (21-51); Neutrophil 56 % (42-75); Platelet Adequacy Comment Significant decrease; Smudge Cells 11.8 %; Total Cell Count 34
[2022-11-07] MEDS: Acetaminophen 325 MG TAB PO SCH ×4 (04:52→19:43)
[2022-11-07] MEDS: Promethazine 25 MG TAB PO SCH (09:00)
[2022-11-07] MEDS: Senokot S 8.6-50 MG TAB PO SCH ×2 (09:00→19:42)
[2022-11-07] MEDS: Ferrous Sulfate 325 MG TAB PO SCH ×2 (09:00→17:24)
[2022-11-07] MEDS: Gabapentin 300 MG CAP PO SCH ×3 (09:00→19:43)
[2022-11-07] MEDS: Folic Acid 1 MG TAB PO SCH (09:00)
[2022-11-07] MEDS: Ascorbic Acid 500 mg Chewable Tablet PO SCH ×2 (09:00→19:42)
[2022-11-07] MEDS: cefTRIAXone\\ROCEPHIN 2 GM in Sodium Chloride 0.9% 100 ML IVPB SCH (09:01)
[2022-11-07] MEDS: Famotidine/PF 20 mg/2ml Vial SLOW IVP SCH (09:01)
[2022-11-07] MEDS: Citalopram 10 MG TAB PO SCH (09:01)
[2022-11-07] MEDS: Polyethylene Glycol 3350 17 GM Packet PO SCH (09:02)
[2022-11-08] MEDS: Acetaminophen 325 MG TAB PO SCH ×4 (03:51→20:19)
[2022-11-08 05:41] LABS: Hemoglobin 7.7 g/dL (12.0-16.0); Manual Diff?? YES; Mean Corpuscular Hemoglobin 29.1 pg (27.0-31.0); Mean Platelet Volume 10.3 fL (7.4-10.4); RBC Distribution Width 15.1 % (11.5-14.5); Red Blood Cell (RBC) Count 2.65 mill/uL (4.20-5.40); White Blood Cell (WBC) Count 0.2 10x3/uL (4.8-10.8)
[2022-11-08 05:43] LABS: Platelet Count 52 10x3/uL (130-400)
[2022-11-08 05:44] LABS: Delete Auto Diff?? YES
[2022-11-08 06:12] LABS: Band 20 % (5-11); CellaVision Operator ID LAB.CLH1; Hypochromia SLIGHT = 6-15 cells HPF (0-5); Lymphocytes 44 % (21-51); Metamyelocyte 8 % (0-0); Monocytes 8 % (0-10); Neutrophil 12 % (42-75); Platelet Adequacy Comment Platelets Decreased; Poikilocytosis SLIGHT = 6-15 cells HPF (0-5); Polychromasia SLIGHT = 2-3 cells HPF (0-2); Promyelocytes 4 % (0-0); Total Cell Count 25
[2022-11-08] MEDS: Promethazine 25 MG TAB PO SCH (09:00)
[2022-11-08] MEDS: Citalopram 10 MG TAB PO SCH (09:00)
[2022-11-08] MEDS: cefTRIAXone\\ROCEPHIN 2 GM in Sodium Chloride 0.9% 100 ML IVPB SCH (09:00)
[2022-11-08] MEDS: Gabapentin 300 MG CAP PO SCH ×3 (09:00→20:18)
[2022-11-08] MEDS: Ferrous Sulfate 325 MG TAB PO SCH ×2 (09:00→17:49)
[2022-11-08] MEDS: Senokot S 8.6-50 MG TAB PO SCH ×2 (09:00→20:18)
[2022-11-08] MEDS: Ascorbic Acid 500 mg Chewable Tablet PO SCH ×2 (09:00→20:19)
[2022-11-08] MEDS: Folic Acid 1 MG TAB PO SCH (09:00)
[2022-11-08] MEDS: Polyethylene Glycol 3350 17 GM Packet PO SCH (09:00)
[2022-11-08 15:40] LABS: Hematocrit 20.9 % (36.0-47.0); Hemoglobin 7.3 g/dL (12.0-16.0); Mean Corpuscular HGB CONC 34.9 g/dL (32.0-36.0); Mean Corpuscular Hemoglobin 29.1 pg (27.0-31.0); Mean Corpuscular Volume 83.3 fl (78.0-98.0); Mean Platelet Volume 10.1 fL (7.4-10.4); RBC Distribution Width 15.2 % (11.5-14.5); Red Blood Cell (RBC) Count 2.51 mill/uL (4.20-5.40); White Blood Cell (WBC) Count 0.2 10x3/uL (4.8-10.8)
[2022-11-08 15:43] LABS: Manual Diff?? YES; Platelet Count 45 10x3/uL (130-400)
[2022-11-08 15:44] LABS: Delete Auto Diff?? YES
[2022-11-08 16:09] LABS: Anisocytosis SLIGHT = 6-15 cells HPF (0-5); Band 17 % (5-11); Burr Cells SLIGHT = 2-5 cells HPF (0-1); CellaVision Operator ID LAB.MJL; Large Platelets 3.4 % (0-5); Lymphocytes 31 % (21-51); Metamyelocyte 3 % (0-0); Myelocyte 4 % (0-0); Neutrophil 41 % (42-75); Ovalocytes SLIGHT = 2-5 cells HPF (0-1); Platelet Adequacy Comment Platelets Decreased; Poikilocytosis SLIGHT = 6-15 cells HPF (0-5); Polychromasia SLIGHT = 2-3 cells HPF (0-2); Total Cell Count 29
[2022-11-08 16:15] LABS: ALT (SGPT) 19 U/L (8-55); AST (SGOT) 56 U/L (5-34); Albumin 2.4 g/dL (3.4-4.8); Alkaline Phosphatase 226 U/L (40-110); Anion Gap 11 mmol/L (10-20); BUN (Urea Nitrogen) 12 mg/dL (9.8-20.1); Bilirubin, Total 1.7 mg/dL (0.2-1.2); Calc. Creatinine Clearance 92 mL/min (70-130); Calcium 7.6 mg/dL (7.8-10.44); Carbon Dioxide 24 mmol/L (23-31); Chloride 102 mmol/L (98-107); Estimated GFR 102; Globulin 2.1 g/dL (2.4-3.5); Glucose 142 mg/dL (80-115); Protein, Total 4.5 g/dL (5.8-8.1); Sodium 134 mmol/L (136-145)
[2022-11-08 16:19] LABS: Potassium 2.5 mmol/L (3.5-5.1)
[2022-11-08] MEDS ORDERED: Electrolyte Replacement Protocol 1 EACH FS SCH (16:30)
[2022-11-08 18:36] LABS: Lactic Acid 1.4 mmol/L (0.5-2.2)
[2022-11-08] MEDS: Potassium Chloride 20 MEQ TAB PO SCH ×2 (20:19→23:39)
[2022-11-08] MEDS: HYDROcodone/Acetaminophen 10/325 mg Tablet PO PRN (20:19)
[2022-11-09] MEDS: Acetaminophen 325 MG TAB PO SCH ×4 (04:56→21:16)
[2022-11-09 05:17] LABS: Bacteria/HPF 4+ HPF (None Seen); Bilirubin Negative (Negative); Blood, Urine 3+ (Negative); CAUTI Indications for Culture Dysuria,urgency,freq; Clarity Clear (Clear); Glucose, Urine (Dipstick) Normal (Negative); Ketone, Urine Negative (Negative); Leukocyte Negative Leu/uL (Negative); Nitrite Negative (Negative); Protein, Urine (Dipstick) 10 mg/dL (Neg-Trace); RBC/HPF Greater than 50 HPF (0-3); Specific Gravity, Urine 1.015 (1.002-1.036); Squamous Epithelial 0-3 HPF (0-3); Urine Culture Reflex No No; Urobilinogen Normal mg/dL (Less than 2); pH, Urine 5.5 (5.0-9.0)
[2022-11-09 06:44] LABS: Hematocrit 19.1 % (36.0-47.0); Hemoglobin 6.7 g/dL (12.0-16.0); Manual Diff?? YES; Mean Corpuscular HGB CONC 35.1 g/dL (32.0-36.0); Mean Corpuscular Hemoglobin 28.8 pg (27.0-31.0); Mean Platelet Volume 9.5 fL (7.4-10.4); RBC Distribution Width 15.2 % (11.5-14.5); Red Blood Cell (RBC) Count 2.33 mill/uL (4.20-5.40); White Blood Cell (WBC) Count 0.2 10x3/uL (4.8-10.8)
[2022-11-09 06:46] LABS: Platelet Count 29 10x3/uL (130-400)
[2022-11-09 06:47] LABS: Delete Auto Diff?? YES
[2022-11-09 07:11] LABS: Band 22 % (5-11); CellaVision Operator ID lab.dlt; Lymphocytes 33 % (21-51); Myelocyte 6 % (0-0); Neutrophil 28 % (42-75); Platelet Adequacy Comment Platelets Decreased; Polychromasia SLIGHT = 2-3 cells HPF (0-2); Reactive Lymphocytes 6 % (0-10); Total Cell Count 18
[2022-11-09 07:13] LABS: Anion Gap 9 mmol/L (10-20); BUN (Urea Nitrogen) 12 mg/dL (9.8-20.1); Calc. Creatinine Clearance 103 mL/min (70-130); Calcium 7.6 mg/dL (7.8-10.44); Carbon Dioxide 26 mmol/L (23-31); Chloride 104 mmol/L (98-107); Estimated GFR 104; Glucose 101 mg/dL (80-115); Potassium 3.4 mmol/L (3.5-5.1); Sodium 136 mmol/L (136-145)
[2022-11-09 07:23] LABS: Magnesium 0.9 mg/dL (1.6-2.6)
[2022-11-09] MEDS ORDERED: Magnesium Sulfate In Water 4 GM in Premix Bag 1 BAG IVPB SCH (08:00)
[2022-11-09] MEDS ORDERED: Potassium Chloride 20 MEQ TAB PO SCH (08:00)
[2022-11-09] MEDS: Senokot S 8.6-50 MG TAB PO SCH ×2 (08:51→21:48)
[2022-11-09] MEDS: Ascorbic Acid 500 mg Chewable Tablet PO SCH ×2 (08:51→21:19)
[2022-11-09] MEDS: Promethazine 25 MG TAB PO SCH (08:51)
[2022-11-09] MEDS: Folic Acid 1 MG TAB PO SCH (08:51)
[2022-11-09] MEDS: Citalopram 10 MG TAB PO SCH (08:51)
[2022-11-09] MEDS: Ferrous Sulfate 325 MG TAB PO SCH ×3 (08:52→21:19)
[2022-11-09] MEDS: Gabapentin 300 MG CAP PO SCH ×3 (08:52→21:48)
[2022-11-09] MEDS: Polyethylene Glycol 3350 17 GM Packet PO SCH (08:58)
[2022-11-09] MEDS: HYDROcodone/Acetaminophen 10/325 mg Tablet PO PRN (11:00)
[2022-11-09 13:56] LABS: Hematocrit 20.4 % (36.0-47.0); Manual Diff?? YES; Mean Corpuscular HGB CONC 34.3 g/dL (32.0-36.0); Mean Corpuscular Hemoglobin 29.9 pg (27.0-31.0); Mean Platelet Volume 11.2 fL (7.4-10.4); Red Blood Cell (RBC) Count 2.34 mill/uL (4.20-5.40); White Blood Cell (WBC) Count 0.1 10x3/uL (4.8-10.8)
[2022-11-09 13:58] LABS: Platelet Count 69 10x3/uL (130-400)
[2022-11-09 13:59] LABS: Delete Auto Diff?? YES; Mean Corpuscular Volume 87.2 fl (78.0-98.0)
[2022-11-09 14:26] LABS: Anisocytosis SLIGHT = 6-15 cells HPF (0-5); Burr Cells MODERATE= 6-15 cells HPF (0-1); CellaVision Operator ID LAB.KB; Lymphocytes 64 % (21-51); Neutrophil 36 % (42-75); Platelet Adequacy Comment Platelets Decreased; Polychromasia SLIGHT = 2-3 cells HPF (0-2); Total Cell Count 11
[2022-11-10] MEDS: Acetaminophen 325 MG TAB PO SCH ×4 (03:55→20:57)
[2022-11-10 04:05] LABS: Hematocrit 24.3 % (36.0-47.0); Hemoglobin 8.7 g/dL (12.0-16.0); Mean Corpuscular HGB CONC 35.8 g/dL (32.0-36.0); Mean Corpuscular Hemoglobin 29.4 pg (27.0-31.0); Mean Platelet Volume 9.2 fL (7.4-10.4); RBC Distribution Width 14.6 % (11.5-14.5); Red Blood Cell (RBC) Count 2.96 mill/uL (4.20-5.40); White Blood Cell (WBC) Count 0.3 10x3/uL (4.8-10.8)
[2022-11-10 04:18] LABS: Platelet Count 35 10x3/uL (130-400)
[2022-11-10 04:20] LABS: Delete Auto Diff?? YES; Manual Diff?? YES; Mean Corpuscular Volume 82.1 fl (78.0-98.0)
[2022-11-10 04:24] LABS: ALT (SGPT) 23 U/L (8-55); AST (SGOT) 55 U/L (5-34); Albumin 2.3 g/dL (3.4-4.8); Alkaline Phosphatase 241 U/L (40-110); Anion Gap 10 mmol/L (10-20); BUN (Urea Nitrogen) 13 mg/dL (9.8-20.1); Bilirubin, Total 3.4 mg/dL (0.2-1.2); Calc. Creatinine Clearance 112 mL/min (70-130); Calcium 8.1 mg/dL (7.8-10.44); Carbon Dioxide 24 mmol/L (23-31); Chloride 105 mmol/L (98-107); Estimated GFR 105; Globulin 2.1 g/dL (2.4-3.5); Glucose 112 mg/dL (80-115); Magnesium 1.9 mg/dL (1.6-2.6); Phosphorus 2.7 mg/dL (2.3-4.7); Potassium 3.7 mmol/L (3.5-5.1); Protein, Total 4.4 g/dL (5.8-8.1); Sodium 135 mmol/L (136-145)
[2022-11-10 05:09] LABS: Band 17 % (5-11); CellaVision Operator ID lab.abc; Lymphocytes 15 % (21-51); Metamyelocyte 7 % (0-0); Monocytes 4 % (0-10); Myelocyte 4 % (0-0); Neutrophil 48 % (42-75); Platelet Adequacy Comment Platelets Decreased; RBC Morphology Within Normal Limits; Total Cell Count 46
[2022-11-10] MEDS ORDERED: Magnesium 2 GM/50 ML(in water) 2 GM in Premix Bag 1 BAG IVPB SCH (08:00)
[2022-11-10] MEDS: Citalopram 10 MG TAB PO SCH (08:17)
[2022-11-10] MEDS: Senokot S 8.6-50 MG TAB PO SCH ×2 (08:18→20:57)
[2022-11-10] MEDS: Gabapentin 300 MG CAP PO SCH ×3 (08:19→20:57)
[2022-11-10] MEDS: Folic Acid 1 MG TAB PO SCH (08:20)
[2022-11-10] MEDS: Ascorbic Acid 500 mg Chewable Tablet PO SCH ×2 (08:20→20:57)
[2022-11-10] MEDS: Ferrous Sulfate 325 MG TAB PO SCH ×2 (08:20→20:57)
[2022-11-10] MEDS: Promethazine 25 MG TAB PO SCH (08:20)
[2022-11-10] MEDS: Polyethylene Glycol 3350 17 GM Packet PO SCH (09:09)
[2022-11-10 12:15] LABS: ALT (SGPT) 23 U/L (8-55); AST (SGOT) 61 U/L (5-34); Albumin 2.3 g/dL (3.4-4.8); Alkaline Phosphatase 253 U/L (40-110); Anion Gap 11 mmol/L (10-20); BUN (Urea Nitrogen) 13 mg/dL (9.8-20.1); Bilirubin, Total 3.1 mg/dL (0.2-1.2); Calc. Creatinine Clearance 104 mL/min (70-130); Calcium 7.8 mg/dL (7.8-10.44); Carbon Dioxide 22 mmol/L (23-31); Chloride 103 mmol/L (98-107); Estimated GFR 103; Globulin 2.2 g/dL (2.4-3.5); Glucose 151 mg/dL (80-115); Magnesium 2.1 mg/dL (1.6-2.6); Phosphorus 2.9 mg/dL (2.3-4.7); Potassium 4.1 mmol/L (3.5-5.1); Protein, Total 4.5 g/dL (5.8-8.1); Sodium 132 mmol/L (136-145)
[2022-11-11] MEDS: Acetaminophen 325 MG TAB PO SCH ×5 (04:17→21:26)
[2022-11-11 06:15] LABS: #Neutrophils 0.1 thou/uL (1.40-6.50); Hematocrit 23.5 % (36.0-47.0); Hemoglobin 8.4 g/dL (12.0-16.0); Mean Corpuscular HGB CONC 35.7 g/dL (32.0-36.0); Mean Corpuscular Hemoglobin 29.7 pg (27.0-31.0); Mean Platelet Volume 9.4 fL (7.4-10.4); RBC Distribution Width 15.1 % (11.5-14.5); Red Blood Cell (RBC) Count 2.83 mill/uL (4.20-5.40); White Blood Cell (WBC) Count 0.3 10x3/uL (4.8-10.8)
[2022-11-11 06:30] LABS: Platelet Count 37 10x3/uL (130-400)
[2022-11-11 06:45] LABS: ALT (SGPT) 25 U/L (8-55); AST (SGOT) 66 U/L (5-34); Albumin 2.3 g/dL (3.4-4.8); Alkaline Phosphatase 237 U/L (40-110); Anion Gap 8 mmol/L (10-20); BUN (Urea Nitrogen) 12 mg/dL (9.8-20.1); Bilirubin, Total 3.4 mg/dL (0.2-1.2); Calc. Creatinine Clearance 124 mL/min (70-130); Calcium 8.7 mg/dL (7.8-10.44); Carbon Dioxide 27 mmol/L (23-31); Chloride 105 mmol/L (98-107); Estimated GFR 108; Glucose 89 mg/dL (80-115); Potassium 3.1 mmol/L (3.5-5.1); Protein, Total 4.3 g/dL (5.8-8.1); Sodium 137 mmol/L (136-145)
[2022-11-11] MEDS ORDERED: Potassium Chloride 20 MEQ TAB PO SCH (08:00)
[2022-11-11 08:09] LABS: Burr Cells MODERATE= 6-15 cells HPF (0-1); CellaVision Operator ID LAB.CMB; Platelet Adequacy Comment Significant decrease; Platelet Clumps 10.3 % (0-5); Poikilocytosis MODERATE=16-30 cells HPF (0-5); Polychromasia SLIGHT = 2-3 cells HPF (0-2); RBC Morphology 2; Smudge Cells 7.7 %
[2022-11-11] MEDS: Citalopram 10 MG TAB PO SCH (10:14)
[2022-11-11] MEDS: Ferrous Sulfate 325 MG TAB PO SCH ×2 (10:15→19:57)
[2022-11-11] MEDS: Ascorbic Acid 500 mg Chewable Tablet PO SCH ×2 (10:15→19:57)
[2022-11-11] MEDS: Gabapentin 300 MG CAP PO SCH ×3 (10:15→19:57)
[2022-11-11] MEDS: Promethazine 25 MG TAB PO SCH (10:16)
[2022-11-11] MEDS: Folic Acid 1 MG TAB PO SCH (10:16)
[2022-11-11] MEDS: Senokot S 8.6-50 MG TAB PO SCH ×2 (14:45→20:23)
[2022-11-11] MEDS: Polyethylene Glycol 3350 17 GM Packet PO SCH (14:45)
[2022-11-12] MEDS: Acetaminophen 325 MG TAB PO SCH ×4 (05:11→22:55)
[2022-11-12 06:15] LABS: Hematocrit 23.2 % (36.0-47.0); Hemoglobin 7.9 g/dL (12.0-16.0); Mean Corpuscular HGB CONC 34.1 g/dL (32.0-36.0); Mean Corpuscular Hemoglobin 28.8 pg (27.0-31.0); Mean Corpuscular Volume 84.7 fl (78.0-98.0); Mean Platelet Volume 9.8 fL (7.4-10.4); RBC Distribution Width 15.2 % (11.5-14.5); Red Blood Cell (RBC) Count 2.74 mill/uL (4.20-5.40); White Blood Cell (WBC) Count 0.3 10x3/uL (4.8-10.8)
[2022-11-12 06:16] LABS: Delete Auto Diff?? YES; Manual Diff?? YES; Platelet Count 62 10x3/uL (130-400)
[2022-11-12 06:40] LABS: ALT (SGPT) 28 U/L (8-55); AST (SGOT) 62 U/L (5-34); Albumin 2.6 g/dL (3.4-4.8); Alkaline Phosphatase 241 U/L (40-110); Anion Gap 9 mmol/L (10-20); BUN (Urea Nitrogen) 13 mg/dL (9.8-20.1); Calc. Creatinine Clearance 117 mL/min (70-130); Calcium 9.2 mg/dL (7.8-10.44); Carbon Dioxide 27 mmol/L (23-31); Chloride 106 mmol/L (98-107); Estimated GFR 106; Globulin 2.2 g/dL (2.4-3.5); Glucose 89 mg/dL (80-115); Potassium 3.7 mmol/L (3.5-5.1); Protein, Total 4.8 g/dL (5.8-8.1); Sodium 138 mmol/L (136-145)
[2022-11-12 06:48] LABS: Band 12 % (5-11); Burr Cells SLIGHT = 2-5 cells HPF (0-1); CellaVision Operator ID lab.abc; Lymphocytes 12 % (21-51); Metamyelocyte 5 % (0-0); Monocytes 8 % (0-10); Myelocyte 5 % (0-0); Neutrophil 51 % (42-75); Platelet Adequacy Comment Platelets Decreased; Poikilocytosis SLIGHT = 6-15 cells HPF (0-5); Reactive Lymphocytes 2 % (0-10); Smudge Cells 1.6 %; Total Cell Count 61; Toxic Granulation SLIGHT
[2022-11-12] MEDS: Citalopram 10 MG TAB PO SCH (10:06)
[2022-11-12] MEDS: Ferrous Sulfate 325 MG TAB PO SCH ×2 (10:08→22:54)
[2022-11-12] MEDS: Gabapentin 300 MG CAP PO SCH ×3 (10:08→22:55)
[2022-11-12] MEDS: Promethazine 25 MG TAB PO SCH (10:09)
[2022-11-12] MEDS: Folic Acid 1 MG TAB PO SCH (10:09)
[2022-11-12] MEDS: Ascorbic Acid 500 mg Chewable Tablet PO SCH ×2 (10:10→22:54)
[2022-11-12] MEDS: Senokot S 8.6-50 MG TAB PO SCH ×2 (10:36→22:55)
[2022-11-12] MEDS: Polyethylene Glycol 3350 17 GM Packet PO SCH (10:36)
[2022-11-13] MEDS: Acetaminophen 325 MG TAB PO SCH ×2 (04:19→09:11)
[2022-11-13 05:41] LABS: Anion Gap 10 mmol/L (10-20); BUN (Urea Nitrogen) 12 mg/dL (9.8-20.1); Calc. Creatinine Clearance 128 mL/min (70-130); Calcium 8.9 mg/dL (7.8-10.44); Carbon Dioxide 28 mmol/L (23-31); Chloride 106 mmol/L (98-107); Estimated GFR 109; Glucose 85 mg/dL (80-115); Potassium 3.3 mmol/L (3.5-5.1); Sodium 141 mmol/L (136-145)
[2022-11-13 07:17] LABS: Hematocrit 23.5 % (36.0-47.0); Mean Corpuscular Hemoglobin 29.2 pg (27.0-31.0); Mean Corpuscular Volume 85.8 fl (78.0-98.0); Mean Platelet Volume 8.6 fL (7.4-10.4); Red Blood Cell (RBC) Count 2.74 mill/uL (4.20-5.40); White Blood Cell (WBC) Count 0.3 10x3/uL (4.8-10.8)
[2022-11-13 07:26] LABS: Platelet Count 42 10x3/uL (130-400)
[2022-11-13 07:29] LABS: Delete Auto Diff?? YES; Manual Diff?? YES
[2022-11-13] MEDS ORDERED: Potassium Chloride 20 MEQ TAB PO SCH (08:00)
[2022-11-13 08:02] LABS: Band 26 % (5-11); Burr Cells SLIGHT = 2-5 cells HPF (0-1); CellaVision Operator ID LAB.GE; Lymphocytes 4 % (21-51); Metamyelocyte 4 % (0-0); Neutrophil 61 % (42-75); Platelet Adequacy Comment Platelets Decreased; Polychromasia SLIGHT = 2-3 cells HPF (0-2); Reactive Lymphocytes 4 % (0-10); Total Cell Count 23
[2022-11-13] MEDS: Polyethylene Glycol 3350 17 GM Packet PO SCH (08:58)
[2022-11-13] MEDS: Senokot S 8.6-50 MG TAB PO SCH (08:58)
[2022-11-13 09:04] VITALS: BMI 21.3
[2022-11-13] MEDS: Citalopram 10 MG TAB PO SCH (09:11)
[2022-11-13] MEDS: Ferrous Sulfate 325 MG TAB PO SCH (09:11)
[2022-11-13] MEDS: Promethazine 25 MG TAB PO SCH (09:12)
[2022-11-13] MEDS: Gabapentin 300 MG CAP PO SCH (09:14)
[2022-11-13] MEDS: Folic Acid 1 MG TAB PO SCH (09:21)
[2022-11-13] MEDS: Ascorbic Acid 500 mg Chewable Tablet PO SCH (09:21)
[2022-11-13 09:51] LABS: Magnesium 1.4 mg/dL (1.6-2.6)
[2022-11-13] MEDS ORDERED: Magnesium Sulfate In Water 4 GM in Premix Bag 1 BAG IVPB SCH (10:15)
[2022-11-13 15:39] VITALS: BP 97/57; TEMP 97.5
[2022-11-13] MEDS ORDERED: Voriconazole 50 MG TAB PO SCH (21:00)
[2022-11-14] MEDS ORDERED: valACYclovir 500 MG TAB PO SCH (09:00)
== END 2022-11-13 17:00 | DRG 83 ==
LOC: ERS 12:24 → IMCU/EMU 14:30 → SURG A 11-06 12:52
PROVIDERS: ADMIT Specialist; ATTEND Specialist
PROC: 30233N1 Transfusion of Nonautologous Red Blood Cells into Peripheral Vein, Percutaneous Approach (ICD-10-PCS; principal; 2022-11-05)
PROC: 6A551Z2 Pheresis of Platelets, Multiple (ICD-10-PCS; 2022-11-05)
DX: S06.6XAA Traumatic subarachnoid hemorrhage with loss of consciousness status unknown, initial encounter (principal); C83.30 Diffuse large B-cell lymphoma, unspecified site; D62 Acute posthemorrhagic anemia; D61.818 Other pancytopenia; G62.9 Polyneuropathy, unspecified; S06.5XAA Traumatic subdural hemorrhage with loss of consciousness status unknown, initial encounter; F41.9 Anxiety disorder, unspecified; F32.A Depression, unspecified; W19.XXXA Unspecified fall, initial encounter; E80.6 Other disorders of bilirubin metabolism; Z51.5 Encounter for palliative care; D46.9 Myelodysplastic syndrome, unspecified; E87.6 Hypokalemia; Z98.890 Other specified postprocedural states; Z79.899 Other long term (current) drug therapy
CPT/HCPCS: 36415; 36430; 70450; 70486; 71045; 72125; 72170; 80048; 80053; 81001; 81003; 81015; 83605; 83735; 84100; 84145; 85025; 85610; 85730; 86850; 86900; 86901; 93005; 93970; 96374; G0390; J0696; J3010; J3475; J3480; J3490; J7050; J7120; P9016; P9035; Q0169; S0028